=== PATIENT | male | born 1945 | race Caucasian/White ===

== ENCOUNTER → 2020-10-04 11:51 | Outpatient (BNVA) | payer MEDICARE, SELFPAY | PROVIDERS: Family Provider Family Medicine; PCP Family Medicine; Visit Provider Family Medicine | DX: I48.91 Unspecified atrial fibrillation (principal); I48.19 Other persistent atrial fibrillation; N18.31 Chronic kidney disease, stage 3a | CPT/HCPCS: 80048 ==

== ENCOUNTER → 2020-10-11 12:02 | Outpatient (BNVA) | payer MEDICARE, SELFPAY | PROVIDERS: Family Provider Family Medicine; PCP Family Medicine; Visit Provider Family Medicine | DX: N18.31 Chronic kidney disease, stage 3a (principal); I48.19 Other persistent atrial fibrillation | CPT/HCPCS: 80048 ==

== ENCOUNTER → 2020-10-26 08:58 | Outpatient (BNVA) | payer MEDICARE, SELFPAY | PROVIDERS: Family Provider Family Medicine; PCP Family Medicine; Visit Provider Family Medicine | DX: N18.31 Chronic kidney disease, stage 3a (principal) | CPT/HCPCS: 80048 ==

== ENCOUNTER 2020-10-28 08:32 | Inpatient (IN) | payer MEDICARE, SELFPAY ==
[2020-10-28 08:36] VITALS: BP 118/69; PULSE 71; RESP 18; TEMP 36.8; O2SAT 97; BMI 25.5
--- NOTE | 2020-10-28 08:48 | XR_ITS ---
WS: [id number] RIGHT FOOT: 3 VIEW(S) TECHNIQUE: AP, oblique and lateral. HISTORY: foot ulcer, DM COMPARISON: None available. Destructive bone lesion involving the head of the fifth proximal phalanx. This is probably a patholog ical fracture with osteomyelitis. There is diffuse soft tissue edema surrounding the fifth toe. Normal tarsal/metatarsal alignment. Mild osteopenia. Hammertoe deformities and moderate degenerative changes at the first IP joint. XR/XR foot RT min 3V* [id number] IMPRESSION: 1. Suspect pathological fracture with osteomyelitis involving the head of the fifth proximal phalanx and possible adjacent middle phalanx. 2. Diffuse soft tissue edema around the first toe. 3. Small calcaneal spur and hammertoe deformities.
--- NOTE | 2020-10-28 08:57 | ED_ITS ---
HPI - Skin/Abscess/Foreign Bdy General: Chief complaint: Skin/Abscess/Foreign Body Stated complaint: Poss Infected Toe on R. Side/Diabetic Time Seen by Provider: 10/28/20 08:41 History of Present Illness: HPI narrative: 74-year-old male presents emergency room with complaints of fifth toe pain. He has several open ulcers on his lower extremities a lot of chronic swelling but he has a discolored right fifth toe. He had been seeing a make up man he stopped going to him. He denies any fever sweats chills he has no other pain or symptoms. He is not currently on any antibiotics. Patient is on blood thinner for A. fib. complaint: abscess/boil and discoloration Onset (ago): week(s) Tetanus up to date: unsure Location: R foot (Fifth toe) Severity: severe Pain Consistency: constant Context: other (Known diabetic toe ulcer had previously been to wound care) Associated symptoms: Deny arthralgias, chills, cough, fever(s), itching, myalgias, nausea, rigidity, short of breath, vomiting or other Treatments prior to arrival: none Review of Systems Const: Denies: fever(s) or chills ENMT: Denies: throat pain, ear or mastoid pain, nasal discharge or nasal congestion Card: Denies: chest pain, edema, dyspnea on exertion or orthopnea Resp: Denies: dyspnea, productive cough or non-productive cough GI: Denies: abdominal pain, nausea, vomiting, hematemesis, coffee ground emesis, diarrhea, constipation, bloating, hematochezia or melena : Denies: flank pain, dysuria, urinary frequency or urinary urgency Skin/Breast: Denies: rash or pruritus PFSH ED PFSH: Medical History Anemia Atrial fibrillation Chronic kidney disease (CKD) stage G3a/A1, moderately decreased glomerular filtration rate (GFR) between 45-59 mL/min/1.73 square meter and albuminuria creatinine ratio less than 30 mg/g Diabetes GERD (gastroesophageal reflux disease) History of abdominal hernia Hypercholesteremia Hypertension Type 2 diabetes mellitus Surgical History Amputation of fifth toe of left foot History of amputation of toe History of appendectomy History of foot surgery Family History Other Stroke Social History Smoking and tobacco status: never smoked Alcohol intake: never Physical Exam Const: COMMON NORMALS: no acute distress GENERAL APPEARANCE: cooperative and comfortable ORIENTATION/CONSCIOUSNESS: Yes awake, Yes oriented to person, Yes oriented to place and Yes oriented to time HENMT: COMMON NORMALS: normocephalic, atraumatic and hearing grossly normal bilaterally HEAD & SCALP: normocephalic and atraumatic Lymph: LYMPHATIC: no lymphadenopathy noted and no lymphedema noted Resp: COMMON NORMALS: normal respiratory effort, No retractions, No use of accessory muscles and clear to auscultation bilaterally AUSCULTATION: clear to auscultation bilaterally Cardio: COMMON NORMALS: regular rate, regular rhythm and No murmurs present (Cardio) RATE: regular rate RHYTHM: regular rhythm GI: COMMON NORMALS: Soft to palpation and No hepatosplenomegaly present AUSCULTATION: Yes normoactive bowel sounds PALPATION: Yes Soft to palpation, No Tenderness to palpation present (GI), No Guarding due to palpation present (GI) and Yes No hepatosplenomegaly present Extremity: NARRATIVE EXTREMITY EXAM: Gangrenous toe with open wound laterally on the right fifth digit there is proximal erythema and redness. Neuro: SENSORIUM/ORIENTATION: Yes oriented to person, Yes oriented to place and Yes oriented to time Skin: COMMON NORMALS: no rashes or lesions noted GENERAL SKIN EXAM: no rashes or lesions noted Course Vital Signs: Vital signs: Vital Signs Temperature 97.7 F 10/31/20 12:00 Pulse Rate 81 10/31/20 12:00 Respiratory Rate 18 10/31/20 12:00 Blood Pressure 183/88 10/31/20 12:00 Pulse Oximetry 92 10/31/20 12:00 MDM - Skin/Abscess/Foreign Bdy MDM Narrative: Medical decision making narrative: Severe osteomyelitis with tissue destruction and bony destruction noted he will need to lose his toe concerned if he does not he will become septic does not appear to be septic at this point discussed Dr. Reynoso he will see the patient also discussed with hospitalist. Lab Data: Labs: Lab Results 10/28/20 10/28/20 10/28/20 Range/Units 09:09 09:09 09:09 WBC 11.4 H (4.0-10.0) 10^3/ uL RBC 3.73 L (4.1-5.3) 10^6/u L Hgb 10.1 L (11.7-16.6) g/dL Hct 32.3 L (42.0-52.0) % MCV 86.6 (80-94) fL MCH 27.1 L (28.0-34.0) pg MCHC 31.3 (30.0-36.0) g/dL RDW 15.9 H (12.1-15.1) % Plt Count 224 (130-400) 10^3/c mm MPV 8.5 (7.4-10.4) fL Neut % (Auto) 78.8 % Lymph % (Auto) 12.9 % [place] % (Auto) 7.4 % Eos % (Auto) 0.1 % Baso % (Auto) 0.4 % Neut # (Auto) 8.97 H (1.8-7.7) 10^3/u L Lymph # (Auto) 1.5 (0.8-4.8) 10^3/u L [place] # (Auto) 0.8 (0.2-0.9) 10^3/u L Eos # (Auto) 0.0 (0.0-0.8) 10^3/u L Baso # (Auto) 0.0 (0.0-0.1) 10^3/u L Nucleated RBC % (a uto) 0 % Nucleated RBCs # 0.0 /100WBC Sodium 135 L (136-145) mmol/L Potassium 4.3 (3.5-5.1) mmol/L Chloride 97 L (98-107) mmol/L Carbon Dioxide 26 (22-29) mmol/L Anion Gap 16.3 (5-19) BUN 62 H (8-23) mg/dL Creatinine 2.0 H (0.7-1.2) mg/dL GFR Calculation Not Reportable Glucose 207 H (65-115) mg/dL Estimat Average Gl ucose 174 Hemoglobin A1c 7.7 H (4.0-6.0) % Calculated Osmolal ity 304 H (285-295) mOsm/k g Calcium 8.9 (8.5-10.5) mg/dL Iron (59-158) ug/dL TIBC mcg/dl % Saturation (20-50) % Unsat Iron Binding (112-347) ug/dL Ferritin (30-400) ng/mL Total Bilirubin 0.5 (0.15-1.2) mg/dL AST 17 (0-40) U/L ALT 10 (0-41) U/L Alkaline Phosphata se 119 (40-130) IU/L Total Protein 7.9 (6.6-8.7) g/dL Albumin 3.4 L (3.5-5.2) g/dL Globulin 4.5 (1.3-4.6) g/dL TSH (0.27-4.20) uIU/ mL 10/28/20 10/28/20 Range/Units 09:09 09:09 WBC (4.0-10.0) 10^3/ uL RBC (4.1-5.3) 10^6/u L Hgb (11.7-16.6) g/dL Hct (42.0-52.0) % MCV (80-94) fL MCH (28.0-34.0) pg MCHC (30.0-36.0) g/dL RDW (12.1-15.1) % Plt Count (130-400) 10^3/c mm MPV (7.4-10.4) fL Neut % (Auto) % Lymph % (Auto) % [place] % (Auto) % Eos % (Auto) % Baso % (Auto) % Neut # (Auto) (1.8-7.7) 10^3/u L Lymph # (Auto) (0.8-4.8) 10^3/u L [place] # (Auto) (0.2-0.9) 10^3/u L Eos # (Auto) (0.0-0.8) 10^3/u L Baso # (Auto) (0.0-0.1) 10^3/u L Nucleated RBC % (a uto) % Nucleated RBCs # /100WBC Sodium (136-145) mmol/L Potassium (3.5-5.1) mmol/L Chloride (98-107) mmol/L Carbon Dioxide (22-29) mmol/L Anion Gap (5-19) BUN (8-23) mg/dL Creatinine (0.7-1.2) mg/dL GFR Calculation Glucose (65-115) mg/dL Estimat Average Gl ucose Hemoglobin A1c (4.0-6.0) % Calculated Osmolal ity (285-295) mOsm/k g Calcium (8.5-10.5) mg/dL Iron 20 L (59-158) ug/dL TIBC 226 mcg/dl % Saturation 8.8 L (20-50) % Unsat Iron Binding 206 (112-347) ug/dL Ferritin 164 (30-400) ng/mL Total Bilirubin (0.15-1.2) mg/dL AST (0-40) U/L ALT (0-41) U/L Alkaline Phosphata se (40-130) IU/L Total Protein (6.6-8.7) g/dL Albumin (3.5-5.2) g/dL Globulin (1.3-4.6) g/dL TSH 0.95 (0.27-4.20) uIU/ mL Discharge Plan Discharge Patient Disposition: Admitted As Inpatient Admit Provider: Franc Hannon Clinical Impression: Gangrene of toe of right foot, Chronic kidney disease (CKD) stage G3a/A1, moderately decreased glomerular filtration rate (GFR) between 45-59 mL/min/1.73 square meter and albuminuria creatinine ratio less than 30 mg/g, Type 2 diabetes mellitus, Hypertension Condition: Stable Coding Level of Care Code ED Clinical Documentation Consultant for Omi Hernández
--- NOTE | 2020-10-28 08:58 | CT_ITS ---
WS: [id number] CT RIGHT FOOT WITH CONTRAST. HISTORY: Gangrenous fifth toe Technique: All [facility] scans at [facility] use at least one of these dose optimization techniq ues: automated exposure control; mA and/or kV adjustment per patient size (includes targeted exams wh ere dose is matched to clinical indication); or iterative reconstruction. DLP: 164.44 mGy.cm COMPARISON: Radiograph 10/28/2020. Contrast: Visipaque 320, 95 cc. There is extensive destruction of the bone involving the head of the fifth proximal fifth phalanx. Th ere is also involvement of the middle phalanx. There is air within the PIP joint with bone destructio n. There is a soft tissue ulceration and possible debridement changes extending laterally from the fi fth IP joint. Hammertoe deformities involving all toes. Significant osteoarthritic changes at the first IP joint. N o additional areas of osteomyelitis or bone destruction identified. There are degenerative changes at the tarsometatarsal articulation. Mild flattening of the normal arch of the foot and a small calcane al spur. There is diffuse significant soft tissue edema surrounding the entire foot. CT/CT foot RT w con [id number] IMPRESSION: 1. Findings consistent with osteomyelitis with bone destruction involving the head of the proximal fifth phalanx and the IP joint and adjacent middle phalanx . 2. No focal enhancing abscess but there is an ulcerated tract extending latera lly from the fifth PIP joint. This may all be due to ulceration and infection. Recent debridement may have been present also. 3. Diffuse soft tissue edema.
[2020-10-28 09:18] LABS: Basophils % 0.4 %; Eosinophils % 0.1 %; Hematocrit 32.3 % (42.0-52.0); Hemoglobin 10.1 g/dL (11.7-16.6); Lymphocytes # 1.5 10^3/uL (0.8-4.8); Lymphocytes % 12.9 %; Mean Corpuscular HGB Conc 31.3 g/dL (30.0-36.0); Mean Corpuscular Hemoglobin 27.1 pg (28.0-34.0); Mean Corpuscular Volume 86.6 fL (80-94); Mean Platelet Volume 8.5 fL (7.4-10.4); Monocytes # 0.8 10^3/uL (0.2-0.9); Monocytes % 7.4 %; Neutrophils # 8.97 10^3/uL (1.8-7.7); Neutrophils % 78.8 %; Nucleated Red Blood Cells % 0 %; Platelet Count 224 10^3/cmm (130-400); Red Blood Count 3.73 10^6/uL (4.1-5.3); Red Cell Distribution Width 15.9 % (12.1-15.1); White Blood Count 11.4 10^3/uL (4.0-10.0)
[2020-10-28] MEDS: iodixanol 320 mg/mL 100mL Btl IV (09:34)
[2020-10-28 09:38] LABS: Alanine Aminotransferase 10 U/L (0-41); Albumin Level 3.4 g/dL (3.5-5.2); Alkaline Phosphatase 119 IU/L (40-130); Anion Gap 16.3 (5-19); Aspartate Amino Transferase 17 U/L (0-40); Blood Urea Nitrogen 62 mg/dL (8-23); Calcium 8.9 mg/dL (8.5-10.5); Carbon Dioxide 26 mmol/L (22-29); Chloride 97 mmol/L (98-107); Globulin 4.5 g/dL (1.3-4.6); Glucose 207 mg/dL (65-115); Osmolality Calculated 304 mOsm/kg (285-295); Potassium 4.3 mmol/L (3.5-5.1); Sodium 135 mmol/L (136-145); Total Bilirubin 0.5 mg/dL (0.15-1.2); Total Protein 7.9 g/dL (6.6-8.7)
[2020-10-28] MEDS: vancomycin 1,000 MG in sodium chloride 0.9% 250 ML 250 MG IV (10:57)
[2020-10-28 11:32] VITALS: BP 118/68; PULSE 79; RESP 18; O2SAT 97
[2020-10-28 12:40] LABS: Thyroid Stimulating Hormone 0.95 uIU/mL (0.27-4.20)
--- NOTE | 2020-10-28 12:40 | PM.HP ---
Providers/Chief Complaint Primary Care Provider: Jose Patiño MD Chief Complaint: Poss Infected Toe on R. Side/Diabetic History of Present Illness Lazara Cleary is a 74 year old male who presented to the emergency department with concerns of changes in his right fifth toe, right leg. He denies any significant pain, fever, chills. He reports podiatry had debrided the toe recently, and it is turned blue in the last several days. He reports his leg has turned red and is swelling more than usual. He has had no vomiting, diarrhea, exposure to Covid, previous history of Covid or vaccine for Covid. He is diabetic and previously required amputation of the left fifth toe diabetic foot ulcer. Review of Systems General: Reports: 10 or more systems reviewed and unremarkable except in HPI and below Const: Denies: fever(s) or chills Eyes: Denies: change in vision ENMT: Denies: throat pain Card: Denies: chest pain Resp: Denies: dyspnea GI: Denies: abdominal pain : Denies: flank pain Musc: Denies: neck pain Skin/Breast: Reports: sores; Denies: rash Neuro: Denies: headache(s) Psych: Denies: anxiety or depression Endo: Denies: polyuria [place]/Lymph: Denies: easy bruising All/Imm: Denies: urticaria Medications/Allergies Home Medications Medication Instructions Recorded Confirmed Last Taken Type atorvastatin 10 mg tablet 10 mg PO DAILY 08/18/20 10/28/20 10/27/20 History metformin 1,000 mg tablet 1,000 mg PO BID 08/18/20 10/28/20 10/28/20 History ferrous sulfate 325 mg (65 mg 325 mg PO DAILY 10/04/20 10/28/20 10/28/20 History iron) tablet,delayed release insulin detemir U-100 100 unit/mL 100 unit SUBCUT BID ml 10/04/20 10/28/20 10/28/20 History (3 mL) subcutaneous pen lisinopril 40 mg tablet 40 mg PO DAILY 10/04/20 10/28/20 10/28/20 History pantoprazole 40 mg tablet,delayed 40 mg PO DAILY 10/04/20 10/28/20 10/28/20 History release hydrochlorothiazide 25 mg tablet 25 mg PO DAILY #90 tab 10/06/20 10/28/20 10/28/20 Rx tramadol 50 mg tablet 50 mg PO DAILY PRN #30 tab 10/11/20 10/28/20 Unknown Rx amlodipine 5 mg tablet 5 mg PO DAILY 90 Days #90 tab 10/26/20 10/28/20 10/28/20 Rx apixaban 5 mg tablet 5 mg PO BID 90 Days #180 tab 10/26/20 10/28/20 10/28/20 Rx furosemide 40 mg tablet 40 mg PO DAILY 90 Days #90 tab 10/26/20 10/28/20 10/28/20 Rx metoprolol tartrate 50 mg PO DAILY 10/28/20 10/28/20 10/28/20 History Allergies Allergy/AdvReac Type Severity Reaction Status Date / Time No Known Allergies Allergy Verified 10/11/20 10:13 PFSH Acute PFSH: Medical History (Updated 10/28/20 @ 13:43 by Franc Hannon MD) Anemia Atrial fibrillation Chronic kidney disease (CKD) stage G3a/A1, moderately decreased glomerular filtration rate (GFR) between 45-59 mL/min/1.73 square meter and albuminuria creatinine ratio less than 30 mg/g Diabetes GERD (gastroesophageal reflux disease) History of abdominal hernia Hypercholesteremia Hypertension Type 2 diabetes mellitus Surgical History (Updated 10/28/20 @ 13:37 by Franc Hannon MD) Amputation of fifth toe of left foot History of amputation of toe History of appendectomy History of foot surgery Family History (Updated 10/28/20 @ 13:37 by Franc Hannon MD) Other Stroke Social History Smoking and tobacco status: never smoked Alcohol intake: never Supplemental PFSH Information: Mother with history of hemorrhagic stroke Vitals/I&O/Wt Last Vital Signs Temp 98.2 F 10/28/20 08:36 Pulse 79 10/28/20 11:32 Resp 18 10/28/20 11:32 BP 118/68 10/28/20 11:32 Pulse Ox 97 10/28/20 11:32 Weight last 48 hrs Weight 85.548 kg Physical Exam Narrative: EXAM NARRATIVE: General exam is an alert and conversive white male in no apparent distress HEENT: Atraumatic, normocephalic. Pupils equally round. Oropharynx clear. Neck is supple no lymphadenopathy or thyromegaly Cardiovascular regular rate and rhythm without murmur. No S3 or S4 Lungs are clear no wheezing or crackles Abdomen is soft with positive bowel sounds. No obvious organomegaly exam is deferred Extremities show 1+ edema on the left, 2+ on the right. Evidence of venous stasis changes are noted. Right lower extremity shows some more intense erythema overlying the dahl, and some skin breakdown. Right fifth toe appears gangrenous with a an ulcer laterally. Neurologic no obvious focal deficits Skin see findings above Data : 10/28/20 09:09 10/28/20 09:09 Micro: Microbiology 10/28/20 09:27 Blood Culture - Preliminary Blood SPECIMEN COLLECTED 10/28/20 09:09 Blood Culture - Preliminary Blood SPECIMEN COLLECTED Other data: LFTs within normal limits Albumin 3.4 X-ray of foot suspected osteomyelitis right fifth proximal phalanx. CT scan confirms this A&P Assessment and plan (1) Gangrene of toe of right foot: Associated with cellulitis of the right lower extremity Initiate vancomycin and Zosyn Check blood cultures Vascular surgery consult Check venous duplex, arterial duplex both lower extremities Status: Acute (2) Atrial fibrillation: Currently on Eliquis. Rate currently under control. Check EKG. I suspect he is currently in sinus rhythm. Hold Eliquis for surgery tomorrow Status: Acute Qualifiers: Atrial fibrillation type: persistent (not longstanding) Qualified Code(s): I48.19 - Other persistent atrial fibrillation (3) Anemia: Likely secondary to his renal disease Iron studies Stool Hemoccult Status: Acute (4) Type 2 diabetes mellitus: Sliding scale insulin Status: Acute (5) Chronic kidney disease (CKD) stage G3a/A1, moderately decreased glomerular filtration rate (GFR) between 45-59 mL/min/1.73 square meter and albuminuria creatinine ratio less than 30 mg/g: Follow renal function closely Status: Acute (6) GERD (gastroesophageal reflux disease): Continue home meds Status: Acute (7) Hypertension: Continue home medications Status: Acute Additional A&P Information Questionable history of CHF. He indicates no history of prior [place], and his fluid overload could also potentially been secondary to renal disease with proteinuria. I gather that he has a normal EF from my visitation with him. I will check a urinalysis to see if there is significant proteinuria. Multiple other medical problems as outlined in his past medical history Full code He is on Eliquis which will suffice for DVT prophylaxis, but will be held as he will be having surgery tomorrow. SCDs contraindicated secondary to the potential for severe vascular disease and gangrenous toe. Attestations Medical Necessity Statement*: Will need greater than 2 midnight stay for evaluation and treatment of cellulitis and gangrenous right fifth toe Time Spent in Patient Care: Greater than 35 minutes Coding Level of Care Code Acute Director Behavioral Health for g Fwd Diagnoses Gangrene of toe of right foot I96 Atrial fibrillation I48.19 Atrial fibrillation type: persistent (not longstanding) Anemia D64.9 Type 2 diabetes mellitus E11.9 Chronic kidney disease (CKD) stage G3a/A1, moderately decreased glomerular filtration rate (GFR) between 45-59 mL/min/1.73 square meter and albuminuria creatinine ratio less than 30 mg/g N18.31 GERD (gastroesophageal reflux disease) K21.9 Hypertension I10
[2020-10-28 12:45] LABS: Estmated Average Glucose 174; Hemoglobin A1C 7.7 % (4.0-6.0)
--- NOTE | 2020-10-28 13:13 | PM.CONSULT ---
Providers/Reason For Consult Consulting Physican/Specialty*: Dr. Reynoso/cardiothoracic surgery Reason for Consult*: Osteomyelitis right foot Requesting Physcian: Dr. Snow Attending Physician: Franc Hannon MD Primary Care Provider: Jose Patiño MD History of Present Illness History of Present Illness Lazara Cleary is a 74 year old diabetic male who I been consulted on after presenting to the emergency department with complaints of pain in his right foot, particularly laterally at the right fifth toe. He has noted discoloration changes and some drainage for the past 2 to 3 days worsening over the past 24 to 36 hours. He has a history of diabetes mellitus and prior left fifth toe amputation in 2012. He has chronic atrial fibrillation and is on Eliquis 5 mg twice daily. He has received some foot care through a seafood specialist whom he no longer sees. He has chronic lower extremity edema which has been present for quite some time. He has been followed by Dr. Patiño from our [facility] service, with his normal primary care provider being Sabrina Sfoia. Dr. Patiño has been assisting with the [facility] program. He has been recently hospitalized for renal insufficiency, CHF, and atrial fibrillation. He received substantial diuresis during this hospitalization. Fairly, echocardiogram revealed preserved function. I do note erythema over the pretibial region of his right foot with gangrenous changes to the right fifth toe. X-rays and CT scan are consistent with osteomyelitis involving the articular surface of the fifth metatarsal as well as the proximal phalanx. He has been initiated on vancomycin since arrival to the [facility]. The laboratory data revealed a mildly elevated white count at 11.4. He is also modestly anemic with a hemoglobin of 10.1. BUN is 62 with a creatinine of 2.0. Review of his laboratory data back to October 04 revealed a BUN of 69 and a creatinine of 2.1. He denies fever, chills, or night sweats. He does have diabetic neuropathy of the feet. Meds/Allergies Home Medications and Allergies Home Medications Medication Instructions Recorded Confirmed Last Taken Type atorvastatin 10 mg tablet 10 mg PO DAILY 08/18/20 10/28/20 10/27/20 History metformin 1,000 mg tablet 1,000 mg PO BID 08/18/20 10/28/20 10/28/20 History ferrous sulfate 325 mg (65 mg 325 mg PO DAILY 10/04/20 10/28/20 10/28/20 History iron) tablet,delayed release insulin detemir U-100 100 unit/mL 100 unit SUBCUT BID ml 10/04/20 10/28/20 10/28/20 History (3 mL) subcutaneous pen lisinopril 40 mg tablet 40 mg PO DAILY 10/04/20 10/28/20 10/28/20 History pantoprazole 40 mg tablet,delayed 40 mg PO DAILY 10/04/20 10/28/20 10/28/20 History release hydrochlorothiazide 25 mg tablet 25 mg PO DAILY #90 tab 10/06/20 10/28/20 10/28/20 Rx tramadol 50 mg tablet 50 mg PO DAILY PRN #30 tab 10/11/20 10/28/20 Unknown Rx amlodipine 5 mg tablet 5 mg PO DAILY 90 Days #90 tab 10/26/20 10/28/20 10/28/20 Rx apixaban 5 mg tablet 5 mg PO BID 90 Days #180 tab 10/26/20 10/28/20 10/28/20 Rx furosemide 40 mg tablet 40 mg PO DAILY 90 Days #90 tab 10/26/20 10/28/20 10/28/20 Rx metoprolol tartrate 50 mg PO DAILY 10/28/20 10/28/20 10/28/20 History Allergies Allergy/AdvReac Type Severity Reaction Status Date / Time No Known Allergies Allergy Verified 10/11/20 10:13 PFSH Acute PFSH: Medical History (Updated 10/28/20 @ 13:21 by Chris Reynoso MD) Amputation of fifth toe of left foot Social History Smoking and tobacco status: never smoked Alcohol intake: never Vitals/I&O/Wt Last Vital Signs Temp 98.2 F 10/28/20 08:36 Pulse 79 10/28/20 11:32 Resp 18 10/28/20 11:32 BP 118/68 10/28/20 11:32 Pulse Ox 97 10/28/20 11:32 Weight last 48 hrs Weight 188 lb 9.6 oz Physical Exam HENMT: COMMON NORMALS: normocephalic, atraumatic, hearing grossly normal bilaterally and external ears normal HEAD & SCALP: normocephalic and atraumatic EXTERNAL EAR: Yes external ears normal Neck/C-Spine: COMMON NORMALS: no lymphadenopathy and supple GENERAL: Yes normal visual inspection and Yes trachea midline CAROTIDS: Yes normal carotid upstroke and No bruit Resp: COMMON NORMALS: normal respiratory effort, No retractions, No use of accessory muscles, clear to auscultation bilaterally and percussion normal EFFORT & INSPECTION: Yes able to speak in complete sentences and Yes symmetric chest movement AUSCULTATION: clear to auscultation bilaterally PERCUSSION: percussion normal Cardio: COMMON NORMALS: regular rate and S1 normal heart sound present; negative for regular rhythm RATE: regular rate RHYTHM: abnormal rhythm and abnormal rhythm irregularly irregular HEART SOUNDS: S1 normal heart sound present BRUITS: no abdominal aortic bruits and no carotid bruits PERIPHERAL PULSES: radial pulses present positive bilateral 2+ OTHER: Palpable pedal pulses. Doppler biphasic dorsalis pedis pulses bilaterally. Lightly Doppler biphasic pulses at the trifurcation. Doppler biphasic popliteal pulses bilaterally. Stormy discoloration and gangrenous changes to the right fifth toe laterally consistent with wet gangrene. Osseous destruction noted on CT scan. Extremity: COMMON NORMALS: negative for normal to inspection and negative for no clubbing, cyanosis or edema GENERAL: Yes amputation (Left fifth toe), Yes edema (Bilateral lower extremities and pretibial region) and Yes mottling (Right fifth toe) Data Micro: Micro: Microbiology 10/28/20 09:27 Blood Culture - Pr eliminary Blood SPECIMEN [facility] 10/28/20 09:09 Blood Culture - Pr eliminary Blood SPECIMEN [facility] A&P Assessment and plan (1) Chronic kidney disease (CKD) stage G3a/A1, moderately decreased glomerular filtration rate (GFR) between 45-59 mL/min/1.73 square meter and albuminuria creatinine ratio less than 30 mg/g: Status: Acute (2) Atrial fibrillation: Status: Acute Qualifiers: Atrial fibrillation type: persistent (not longstanding) Qualified Code(s): I48.19 - Other persistent atrial fibrillation (3) Gangrene of toe of right foot: Gangrenous changes with drainage to the lateral aspect of the right fifth toe. Osteomyelitis by CT scan involving the fifth metatarsal distally. Erythema of the pretibial region. He has received his first dose of vancomycin. Recommendation: Recommend proceeding with maximal medical management through the afternoon and plans for right fifth toe amputation tomorrow morning which has been tentatively scheduled for 8 AM. Rationale for this was carefully discussed with Mr. Cleary and he is in agreement. Details the risk of surgery reviewed include the possibility requiring further surgeries including subsequent need for major amputation due to ongoing infection or inadequate blood supply. Need for long-term surveillance and subsequent follow-up in the wound care service was also discussed. Increased bleeding risk related to his current anticoagulation was also frankly discussed. He states understanding and wishes to proceed. Will eventually need further investigation as to his vascular status, though given his renal insufficiency this needs to be addressed carefully with appropriate hydration and consultation with nephrology. Given the stormy gangrenous changes to his right fifth toe I believe it is distal to proceed with dressing these gangrenous changes acutely. Status: Acute Consult Attestations Medical Necessity Statement: Gangrene right fifth toe Time Spent in Patient Care: Greater than 35 minutes Coding Level of Care Code Acute Forming Tube Selector for [facility] Fwd Diagnoses Chronic kidney disease (CKD) stage G3a/A1, moderately decreased glomerular filtration rate (GFR) between 45-59 mL/min/1.73 square meter and albuminuria creatinine ratio less than 30 mg/g N18.31 Atrial fibrillation I48.19 Atrial fibrillation type: persistent (not longstanding) Gangrene of toe of right foot I96
[2020-10-28 13:21] VITALS: BP 124/74; PULSE 78; RESP 18; O2SAT 98
--- NOTE | 2020-10-28 13:29 | XR_ITS ---
WS: [id number] Portable AP upright chest, 10/28/2020 Clinical Data: Gangrene right foot Comparison: Portable chest, 07/16/2012. Findings: No nodules, masses or effusions are seen. The heart is enlarged. The pulmonary vascularity is not increased. No pneumonia or pneumothorax is seen. There are calcified granulomas in both lungs XR/XR chest 1V portable [id number] Impression: Cardiomegaly.
--- NOTE | 2020-10-28 13:41 | ECG_ITS ---
[facility] ED Test Date: 2020-10-28 Pat Name: Lazara Cleary Department: Room: 269 Gender: Male Business Development: : 1945 Requested By: Franc Bhatia Order Number: [id number] Zay MD: Marely Davalos M.D. Measurements Intervals [place] Rate: 77 P: OK: QRS: 55 QRSD: 92 T: 70 QT: 357 QTc: 405 Interpretive Statements Possibly ATRIAL Fibrillation NONSPECIFIC T-WAVE ABNORMALITY ABNORMAL RHYTHM ECG No previous ECG available for comparison Electronically Signed On 10-30-2020 12:24:28 CDT by Marely Davalos M.D. [id number]
[2020-10-28 14:18] LABS: Ferritin 164 ng/mL (30-400); Iron 20 ug/dL (59-158); Percent Saturation 8.8 % (20-50); Total Iron Binding Capacity 226 mcg/dl; Unsaturated Iron Binding 206 ug/dL (112-347)
--- NOTE | 2020-10-28 14:35 | USR_ITS ---
PROCEDURE INFORMATION: Exam: US Duplex Lower Extremity Veins, Bilateral Exam date and time: 10/28/2020 4:05 PM Age: 74 years old Clinical indication: Pain; Leg, lower; Bilateral; Additional info: Edema TECHNIQUE: Imaging protocol: Real-time duplex ultrasound of the extremities with 2-D moore scale, color Doppler flow and spectral waveform analysis with image documentation. Complete exam focused on the bilateral lower extremity veins. COMPARISON: CT foot RT w con [id number] 10/28/2020 9:47 AM FINDINGS: Right deep veins: Unremarkable. The common femoral, femoral, proximal profunda femoral and popliteal veins are patent without thrombus. Normal Doppler waveforms. Normal compressibility and/or augmentation response. Right superficial veins: Saphenofemoral junction is patent without thrombus. Left deep veins: Unremarkable. The common femoral, femoral, proximal profunda femoral and popliteal veins are patent without thrombus. Normal Doppler waveforms. Normal compressibility and/or augmentation response. Left superficial veins: Saphenofemoral junction is patent without thrombus. Soft tissues: Scattered subcutaneous soft tissue edema changes. US/CV venous duplex [facility] [id number] IMPRESSION: No evidence of deep vein thrombosis.
--- NOTE | 2020-10-28 14:35 | USR_ITS ---
PROCEDURE INFORMATION: Exam: US Duplex Lower Extremity Arteries Exam date and time: 10/28/2020 4:05 PM Age: 74 years old Clinical indication: Pain; Leg, lower; Bilateral; Additional info: Diabetic foot ulcer TECHNIQUE: Imaging protocol: Real-time ultrasound scan of the arteries of the bilateral lower extremities with 2-D moore scale, color Doppler flow and spectral waveform analysis. Images documented and saved. COMPARISON: [place] [id number] 10/28/2020 4:24 PM FINDINGS: Right external iliac artery: Unremarkable triphasic waveforms are identified throughout the right iliac arteries. Peak systolic velocities are normal. Right common femoral artery: Right common femoral artery has triphasic waveform. Normal peak systolic velocity. Right superficial femoral artery: Triphasic waveforms through the right superficial femoral artery with unremarkable peak systolic velocity. Right popliteal artery: Mild dampening with biphasic waveform through the right popliteal artery with unremarkable peak systolic velocity. Scattered echogenic atherosclerotic wall plaque. Right calf/foot arteries: Waveform dampening with biphasic pattern in the right posterior tibial artery and the right dorsalis pedis artery with unremarkable peak systolic velocity. Left external iliac artery: Triphasic waveforms through the left iliac arteries with unremarkable peak systolic velocity. Left common femoral artery: Triphasic waveform pattern in the left common femoral artery with unremarkable velocity. Left superficial femoral artery: Triphasic waveform pattern throughout the left superficial femoral artery with unremarkable loss at E. Left popliteal artery: Mild dampening with biphasic pattern in the left popliteal artery with unremarkable velocity. Left calf/foot arteries: Severe waveform dampening with monophasic pattern in the left posterior tibial artery and the left dorsalis ped[place]. US/[place] [id number] IMPRESSION: 1. Significant spectral Doppler waveform dampening is identified in the left lower extremity infrapopliteal arterial runoff consistent with significant peripheral arterial disease changes. 2. Mild severity spectral Doppler waveform dampening is identified in the right lower extremity infrapopliteal arterial runoff consistent with mild severity peripheral arterial disease changes. 3. No significant waveform abnormalities above the knees.
[2020-10-28 15:37] VITALS: BP 136/72; PULSE 88; RESP 18; TEMP 37; O2SAT 95
[2020-10-28] MEDS: piperacillin-tazobactam 3.375 GM in sodium chloride 0.9% (plus) 50 ML IV ×2 (16:23→23:46)
[2020-10-28 16:54] LABS: Glucose Point of Care 148 mg/dL (70-110)
[2020-10-28] MEDS: heparin 5,000 unit/mL INJ 1 mL 5000 UNIT SUBCUT (17:15)
[2020-10-28 17:23] LABS: Bilirubin Urine Neg (Negative); Blood Urine 2+ (Negative); Glucose Urine UA Norm (Normal); Ketones Urine Negative (Negative); Leukocyte Esterase Urine Negative (Negative); Nitrate Urine Negative (Negative); Protein Urine 1+ (Negative); Specific Gravity, Urine 1.005 (1.005-1.030); Urine Appearance Clear (CLEAR); Urine Color Yellow (Yellow); Urobilinogen Urine Norm (Negative); pH Urine 5 (5-7)
[2020-10-28 17:24] LABS: Bacteria Urine TRACE /hpf; Hyaline Casts Urine 0-4 /lpf; Squamous Epithelial Cell Urine 0-4 /hpf (0-5); WBC Urine 0-4 /hpf (0-5)
[2020-10-28 17:25] LABS: Add Urine Culture? No
[2020-10-28 20:00] VITALS: BP 140/69; PULSE 79; RESP 20; TEMP 36.5; O2SAT 95
[2020-10-28] MEDS: HYDROcodone-acetaminophen 5-325 mg Tablet 1 TAB PO (20:21)
[2020-10-28] MEDS: ondansetron 2 mg/ML SDV 2 mL 4 MG IVP (20:24)
[2020-10-28 20:25] LABS: Glucose Point of Care 137 mg/dL (70-110)
[2020-10-29] VITALS (14 sets, daily range): BP systolic 100–169; BP diastolic 49–81; PULSE 62–85; RESP 12–19; TEMP 36.2–37.1; O2SAT 92–99
[2020-10-29] MEDS: heparin 5,000 unit/mL INJ 1 mL 5000 UNIT SUBCUT ×2 (02:25→15:46)
[2020-10-29 05:53] LABS: Basophils % 0.6 %; Eosinophils # 0.2 10^3/uL (0.0-0.8); Eosinophils % 2.2 %; Hematocrit 29.7 % (42.0-52.0); Hemoglobin 9.6 g/dL (11.7-16.6); Lymphocytes # 1.5 10^3/uL (0.8-4.8); Lymphocytes % 21.2 %; Mean Corpuscular HGB Conc 32.3 g/dL (30.0-36.0); Mean Corpuscular Hemoglobin 27.3 pg (28.0-34.0); Mean Corpuscular Volume 84.4 fL (80-94); Mean Platelet Volume 9.2 fL (7.4-10.4); Monocytes # 0.6 10^3/uL (0.2-0.9); Monocytes % 8.5 %; Neutrophils # 4.68 10^3/uL (1.8-7.7); Neutrophils % 67.2 %; Nucleated Red Blood Cells % 0 %; Platelet Count 226 10^3/cmm (130-400); Red Blood Count 3.52 10^6/uL (4.1-5.3); Red Cell Distribution Width 15.6 % (12.1-15.1)
[2020-10-29] MEDS: vancomycin 1,250 MG/250 ML PIGGYBACK 250 MG IV (06:03)
[2020-10-29 06:20] LABS: Alanine Aminotransferase 7 U/L (0-41); Albumin Level 2.7 g/dL (3.5-5.2); Alkaline Phosphatase 121 IU/L (40-130); Anion Gap 14.1 (5-19); Aspartate Amino Transferase 15 U/L (0-40); Blood Urea Nitrogen 56 mg/dL (8-23); Calcium 8.5 mg/dL (8.5-10.5); Carbon Dioxide 27 mmol/L (22-29); Chloride 99 mmol/L (98-107); Globulin 4.2 g/dL (1.3-4.6); Glucose 140 mg/dL (65-115); Osmolality Calculated 300 mOsm/kg (285-295); Potassium 4.1 mmol/L (3.5-5.1); Sodium 136 mmol/L (136-145); Total Bilirubin 0.5 mg/dL (0.15-1.2); Total Protein 6.9 g/dL (6.6-8.7)
[2020-10-29 06:54] LABS: Glucose Point of Care 144 mg/dL (70-110)
--- NOTE | 2020-10-29 07:06 | PM.PN ---
Subjective Subjective: Interval history: Hospital day #1. Mr. Cleary rested well last night. White count has decreased to 7000 since initiation of antibiotics. Vitals/I&O/Wt Last Vital Signs Temp 98.6 F 10/29/20 04:15 Pulse 72 10/29/20 04:15 Resp 18 10/29/20 04:15 BP 111/49 10/29/20 04:15 Pulse Ox 92 10/29/20 04:15 10/28/20 10/29/20 10/29/20 22:59 06:59 14:59 Intake Total 730 / 980 50 / 1030 Output Total 275 / 275 400 / 675 Balance 455 / 705 -350 / 355 Weight last 48 hrs Weight 188 lb 9.6 oz Physical Exam Resp: COMMON NORMALS: normal respiratory effort and clear to auscultation bilaterally AUSCULTATION: clear to auscultation bilaterally Cardio: COMMON NORMALS: regular rate RATE: regular rate RHYTHM: abnormal rhythm irregularly irregular Extremity: OTHER: Gangrenous right fifth toe was radiographic evidence for osteomyelitis by CT scan Data : 10/29/20 04:40 10/29/20 04:40 Micro: Microbiology 10/28/20 09:27 Blood Culture - Preliminary Blood SPECIMEN COLLECTED 10/28/20 09:09 Blood Culture - Preliminary Blood SPECIMEN COLLECTED A&P Assessment and plan (1) Gangrene of toe of right foot: We will plan to proceed with amputation of the right fifth toe as well as debridement of the distal aspect of the right fifth metatarsal with radiographic evidence for osteomyelitis by CT scan. Rationale again discussed with Mr. Cleary who is in agreement. He has been n.p.o. since midnight. Status: Acute Attestations Medical Necessity Statement*: Gangrene right fifth toe with osteomyelitis Time Spent in Patient Care: less than 15 minutes Coding Level of Care Code Acute Seismic Interpreter for [facility] Diagnoses Gangrene of toe of right foot I96
--- NOTE | 2020-10-29 07:49 | PC.NURSE ---
Surgery Pt taken down to surgery.
[2020-10-29] MEDS: sodium chloride 0.9% 1,000 ML 30 ML IV (07:50)
[2020-10-29] MEDS: piperacillin-tazobactam 3.375 GM in sodium chloride 0.9% (plus) 50 ML IV ×3 (07:57→23:40)
[2020-10-29] MEDS: lidocaine 1% INJ 20 mL INJECTION (08:28)
[2020-10-29] MEDS: ceFAZolin 1,000 mg SDV 1000 MG IRRIGATION (08:29)
[2020-10-29] MEDS: neomycin-poly-bacitracin oint 28 gm 1 APPLIC TOPICAL (08:48)
--- NOTE | 2020-10-29 09:14 | PM.OP ---
Operative Report Date of procedure: October 29, 2020 Pre-op Diagnosis: Gangrene right fifth toe wound with osteomyelitis Post-op diagnosis: same Procedure Done: Right fifth toe amputation Specimens removed/disposition: 1. Right fifth toe 2. Cultures Surgeon: Chris Reynoso Anesthesia: MAC and Local Complications: None Condition: stable Disposition: PACU Brief History: 74-year-old gentleman with diabetes mellitus presents with gangrenous changes to the right fifth toe over 3-day period. His CT scan of the foot revealed evidence for osteomyelitis involving the toe and distal aspect of the fifth metatarsal. Initiate oral antibiotic therapy with decrease in his white count. I recommended amputation. He will simply require further vascular evaluations though given the stormy gangrenous changes and presentation of leukocytosis, I feel it important to proceed with amputation. Details and risk of procedure were carefully and frankly discussed. Proper consents have been reviewed and signed. Procedure: Mr. Cleary was taken to the operating room theater after appropriate review of the procedure had been completed, he was appropriately marked, and consents obtained. He was carefully positioned on the OR table. He underwent IV conscious sedation anesthesia monitoring. His entire right foot and lower leg was sterilely prepped and draped. 1% lidocaine was infiltrated as digital block to the right fifth toe. #15 scalpel a was utilized then to incise at the base of the right fifth toe circumferentially and down to the metatarsal phalangeal joint with transection of associated ligaments and tendons. Specimen was removed and cultures were obtained/aerobic and anaerobic. Bone rongeur was then utilized to remove the articular surface of the fifth metatarsal as well as the distal one third until we reached what I felt was good quality bone. Once completed, previously transected tendons were placed on tension and then further transected. Wound was irrigated with large amounts of antibiotic solution. All remaining tissue appeared to be viable. I then elected to close this wound with interrupted 3-0 nylon suture. Triple antibiotic ointment and sterile dressings were applied. Mr. Suarez procedure well was awakened from IV consultation and taken to the postoperative care unit in stable condition. Antibiotic therapy will be continued as directed by Dr. Hannon with subsequent transitioning to oral antibiotics. Mr. Cleary will need follow-up at [facility] wound care services. Given his diabetes, degree of infection, and vascular disease, there is substantial propensity that his wound may not heal appropriately with primary closure and subsequently need to be reopened and treated as an open wound with planned secondary healing. This is all been previously discussed with Mr. Cleary during my initial consultation.
[2020-10-29] MEDS: FUROsemide 40 mg Tablet PO (10:04)
[2020-10-29] MEDS: amlodipine 5 mg Tablet PO ×2 (10:04→13:57)
[2020-10-29] MEDS: atorvastatin 40 mg Tablet 20 MG PO (10:05)
[2020-10-29] MEDS: pantoprazole DR 40 mg Tablet PO (10:07)
[2020-10-29] MEDS: hydroCHLOROthiazide 25 mg Tablet PO (10:08)
[2020-10-29 10:24] LABS: Glucose Point of Care 132 mg/dL (70-110)
--- NOTE | 2020-10-29 10:26 | ANES.PREANE2 ---
Pre-Anesthetic Assessment Pre-Anesthetic Assessment: Height/Weight: Height 1.83 m Weight 85.548 kg Temp Pulse Resp BP Pulse Ox 97.6 F 71 17 132/69 95 10/29/20 09:05 10/29/20 09:05 10/29/20 09:05 10/29/20 09:05 10/29/20 09:05 Preop Diagnosis: Gangrene right fifth toe wound with osteomyelitis Proposed Procedure: Operation Date: 10/29/20 08:20 Proposed Procedures p Amputation Toe/s 5th toe(Right) - Chris Reynoso MD Was Beta Dave taken within 24 hours: Yes Was Clonidine taken within 24 hours: N/A Last intake: Intake Last Liquid Date 10/28/20 Last Liquid Time 23:45 Last Solid Date 10/28/20 Last Solid Time 18:00 Social: Social History: No alcohol and No tobacco Exam: Pre-Anes Outpt Exam: alert, oriented x 3 and clear to auscultation bilaterally Airway: Submandibular: WNL Cervical ROM: WNL MP: 2 Dentition: False CV/HEM: CV/HEM: Afib, Anemia and HTN : : Chronic renal Insufficiency GI: GI: GERD Metabolic: Metabolic: DM Anesthetic Plan: ASA status: 3 Anesthesia: MAC Risk of > 500 ml blood loss (7ml/kg in children): No Meds/Allergies Current Medications: Current Medications Generic Name Dose Route Start Last Admin Trade Name Freq PRN Reason Stop Dose Admin Hydrocodone Bitart /Acetaminophen 1 tab 10/28/20 14:35 10/28/20 20:21 Hydrocodone-Acet aminophen 5-325 Mg Tablet PO 1 tab Q4H PRN Administration MODERATE TO SEVER E PAIN Amlodipine Besylat e 5 mg 10/29/20 09:00 10/29/20 10:04 Amlodipine 5 Mg Tablet PO 5 mg DAILY ANDREAS Administration Atorvastatin Calci um 20 mg 10/29/20 09:00 10/29/20 10:05 Atorvastatin 40 Mg Tablet PO 20 mg DAILY ANDREAS Administration Furosemide 40 mg 10/29/20 09:00 10/29/20 10:04 Furosemide 40 Mg Tablet PO 40 mg DAILY ANDREAS Administration Heparin Sodium (Be ef Lung) 5,000 unit 10/28/20 15:00 10/29/20 02:25 Heparin 5,000 Un it/Ml Inj 1 Ml SUBCUT 5,000 unit Q12H ANDREAS Administration Hydrochlorothiazid e 25 mg 10/29/20 09:00 10/29/20 10:08 Hydrochlorothiaz anthony 25 Mg Tablet PO 25 mg DAILY ANDREAS Administration Piperacillin Sod/T azobactam 50 mls @ 12.5 mls /hr 10/28/20 15:00 10/29/20 08:27 Sod 3.375 gm/ So dium Chloride IV Infused Q8H ANDREAS Infusion Protocol Vancomycin/PEG/NAD A/Lysine/Water 1,250 mg in 250 m ls @ 250 mls/hr 10/29/20 06:00 10/29/20 07:03 Vancocin IV Infused Q24H ANDREAS Infusion Insulin Aspart 0 unit 10/28/20 14:35 10/29/20 09:31 Insulin Aspart 1 00 Unit/1 Ml SUBCUT Not Given WM&BEDTIME ANDREAS Protocol Neomycin/Polymyxin /Bacitracin 1 applic 10/29/20 09:00 10/29/20 08:48 Zopqkfhy-Ngvl-Ow citracin Oint 28 G m TOPICAL 10 gm BID ANDREAS Administration Ondansetron HCl 4 mg 10/28/20 14:35 10/28/20 20:24 Ondansetron 2 Mg /Ml Sdv 2 Ml IVP 4 mg Q6H PRN Administration vomiting, or N/V if npo Pantoprazole Sodiu m 40 mg 10/29/20 09:00 10/29/20 10:[address] 40 Mg Tablet PO 40 mg DAILY ANDREAS Administration PFSH Anesthesia PFSH: Medical History (Updated 10/28/20 @ 13:43 by Franc Hannon MD) Anemia Atrial fibrillation Chronic kidney disease (CKD) stage G3a/A1, moderately decreased glomerular filtration rate (GFR) between 45-59 mL/min/1.73 square meter and albuminuria creatinine ratio less than 30 mg/g Diabetes GERD (gastroesophageal reflux disease) History of abdominal hernia Hypercholesteremia Hypertension Type 2 diabetes mellitus Surgical History (Updated 10/28/20 @ 13:37 by Franc Hannon MD) Amputation of fifth toe of left foot History of amputation of toe History of appendectomy History of foot surgery Family History (Updated 10/28/20 @ 13:37 by Franc Hannon MD) Other Stroke Social History Smoking and tobacco status: never smoked Alcohol intake: never Supplemental [facility] Information: Mother with history of hemorrhagic stroke Data Anesthesia CBC & Chem 7: 10/29/20 04:40 10/29/20 04:40 Other Labs: Laboratory Results - last 48 hr 10/28/20 10/28/20 10/28/20 09:09 09:09 09:09 WBC 11.4 H RBC 3.73 L Hgb 10.1 L Hct 32.3 L MCV 86.6 MCH 27.1 L MCHC 31.3 RDW 15.9 H Plt Count 224 MPV 8.5 Neut % (Auto) 78.8 Lymph % (Auto) 12.9 [place] % (Auto) 7.4 Eos % (Auto) 0.1 Baso % (Auto) 0.4 Neut # (Auto) 8.97 H Lymph # (Auto) 1.5 [place] # (Auto) 0.8 Eos # (Auto) 0.0 Baso # (Auto) 0.0 Nucleated RBC % (auto) 0 Nucleated RBCs # 0.0 Sodium 135 L Potassium 4.3 Chloride 97 L Carbon Dioxide 26 Anion Gap 16.3 BUN 62 H Creatinine 2.0 H GFR Calculation Not Reportable Glucose 207 H POC Glucose Estimat Average Glucose 174 Hemoglobin A1c 7.7 H Calculated Osmolality 304 H Calcium 8.9 Iron TIBC % Saturation Unsat Iron Binding Ferritin Total Bilirubin 0.5 AST 17 ALT 10 Alkaline Phosphatase 119 Total Protein 7.9 Albumin 3.4 L Globulin 4.5 TSH Urine Color Urine Appearance Urine pH Ur Specific [place] Urine Protein Urine Glucose (UA) Urine Ketones Urine Blood Urine Nitrate Urine Bilirubin Urine Urobilinogen Ur Leukocyte Esterase Urine RBC Urine WBC Ur Squamous Epith Cells Amorphous Sediment Urine Bacteria Hyaline Casts 10/28/20 10/28/20 10/28/20 09:09 09:09 16:39 WBC RBC Hgb Hct MCV MCH MCHC RDW Plt Count MPV Neut % (Auto) Lymph % (Auto) [place] % (Auto) Eos % (Auto) Baso % (Auto) Neut # (Auto) Lymph # (Auto) [place] # (Auto) Eos # (Auto) Baso # (Auto) Nucleated RBC % (auto) Nucleated RBCs # Sodium Potassium Chloride Carbon Dioxide Anion Gap BUN Creatinine GFR Calculation Glucose POC Glucose Estimat Average Glucose Hemoglobin A1c Calculated Osmolality Calcium Iron 20 L TIBC 226 % Saturation 8.8 L Unsat Iron Binding 206 Ferritin 164 Total Bilirubin AST ALT Alkaline Phosphatase Total Protein Albumin Globulin TSH 0.95 Urine Color Yellow Urine Appearance Clear Urine pH 5 Ur Specific [place] 1.005 Urine Protein 1+ H Urine Glucose (UA) Norm Urine Ketones Negative Urine Blood 2+ H Urine Nitrate Negative Urine Bilirubin Neg Urine Urobilinogen Norm Ur Leukocyte Esterase Negative Urine RBC 5-10 H Urine WBC 0-4 H Ur Squamous Epith Cells 0-4 H Amorphous Sediment Not Reportable Urine Bacteria Trace Hyaline Casts 0-4 H 10/28/20 10/28/20 10/29/20 16:50 20:21 04:40 WBC 7.0 RBC 3.52 L Hgb 9.6 L Hct 29.7 L MCV 84.4 MCH 27.3 L MCHC 32.3 RDW 15.6 H Plt Count 226 MPV 9.2 Neut % (Auto) 67.2 Lymph % (Auto) 21.2 [place] % (Auto) 8.5 Eos % (Auto) 2.2 Baso % (Auto) 0.6 Neut # (Auto) 4.68 Lymph # (Auto) 1.5 [place] # (Auto) 0.6 Eos # (Auto) 0.2 Baso # (Auto) 0.0 Nucleated RBC % (auto) 0 Nucleated RBCs # 0.0 Sodium Potassium Chloride Carbon Dioxide Anion Gap BUN Creatinine GFR Calculation Glucose POC Glucose 148 H 137 H Estimat Average Glucose Hemoglobin A1c Calculated Osmolality Calcium Iron TIBC % Saturation Unsat Iron Binding Ferritin Total Bilirubin AST ALT Alkaline Phosphatase Total Protein Albumin Globulin TSH Urine Color Urine Appearance Urine pH Ur Specific [place] Urine Protein Urine Glucose (UA) Urine Ketones Urine Blood Urine Nitrate Urine Bilirubin Urine Urobilinogen Ur Leukocyte Esterase Urine RBC Urine WBC Ur Squamous Epith Cells Amorphous Sediment Urine Bacteria Hyaline Casts 10/29/20 10/29/20 10/29/20 04:40 06:45 10:02 WBC RBC Hgb Hct MCV MCH MCHC RDW Plt Count MPV Neut % (Auto) Lymph % (Auto) [place] % (Auto) Eos % (Auto) Baso % (Auto) Neut # (Auto) Lymph # (Auto) [place] # (Auto) Eos # (Auto) Baso # (Auto) Nucleated RBC % (auto) Nucleated RBCs # Sodium 136 Potassium 4.1 Chloride 99 Carbon Dioxide 27 Anion Gap 14.1 BUN 56 H Creatinine 1.8 H GFR Calculation Not Reportable Glucose 140 H POC Glucose 144 H 132 H Estimat Average Glucose Hemoglobin A1c Calculated Osmolality 300 H Calcium 8.5 Iron TIBC % Saturation Unsat Iron Binding Ferritin Total Bilirubin 0.5 AST 15 ALT 7 Alkaline Phosphatase 121 Total Protein 6.9 Albumin 2.7 L Globulin 4.2 TSH Urine Color Urine Appearance Urine pH Ur Specific [place] Urine Protein Urine Glucose (UA) Urine Ketones Urine Blood Urine Nitrate Urine Bilirubin Urine Urobilinogen Ur Leukocyte Esterase Urine RBC Urine WBC Ur Squamous Epith Cells Amorphous Sediment Urine Bacteria Hyaline Casts Micro: Microbiology 10/28/20 09:27 Blood Culture - Preliminary Blood NEGATIVE TO DATE 10/28/20 09:09 Blood Culture - Preliminary Blood NEGATIVE TO DATE Cardiac Studies: No Data to Display
--- NOTE | 2020-10-29 10:27 | ANE.PACU2 ---
Inpatient post-anesthesia follow up: Airway intact: Yes Vital signs: Temperature 97.6 F Pulse Rate [Monito r] 71 Pulse Rate 71 Respiratory Rate 17 Blood Pressure [Le ft Arm] 118/69 Blood Pressure 132/69 Pulse Oximetry 95 Oxygen Delivery Me thod Room Air Oxygen Flow Rate 8 Fraction of Inspir ed Oxygen Hydration adequate: Yes Nausea and vomiting: No Pain level: 1 Mental status: Baseline
--- NOTE | 2020-10-29 10:49 | PC.CHAP ---
Pastoral Care Encounter/Spiritual Assessment Type of Contact [] Declined prenatal teacher visit [] Patient/Family/Request visit [] Outpatient visit [] Follow-up visit [] Physician referral [] Code/Alert [XX] Routine visit [] Staff referral [] Actively dying [] Patient sleeping [] Family support [] [] Out of room [] Palliative care [] [XX] Receiving care in room [] Pre-surgical visit [] Trauma [] Long length of stay [] ICU visit [] Other: Relational/Emotional Strength [] Patient feels connected with others/family/visitors/staff [] Distress [] Loneliness/isolation [] Abandonment Spirituality of Patient [] Person of Adriana [] Attends Anglican of their Adriana [] Believes in Prayer [] Reads Bible or Spiritism materials [] There are Spiritual issues to be addressed Certified Court Interpreter Interventions [] Prayer [] Active listening [] Non-anxious presence [] Spiritual/emotional support [] Crisis/trauma care [] Spiritual counseling [] Bereavement support [] Provided bereavement packet [] Provided Bible/devotional materials [] Provided toy/stuffed animal, coloring book to patient or family member [] Provided Communion [] Anointing/[place] [] Salvation [] Completed spiritual assessment [] Other: Impact on Illness or Injury [] Angry [] Fearful [] Anxious [] Often cries [] Exhaustion [] Unable to work [] Unable to attend mandaen [] Unable to walk/stand [] Unable to read [] Unable to drive [] Unable to eat/drink [] Unable to sleep [] Unable to be with family [] Patient intubated [] Other: Summary: Certified Court Interpreter attempted visits x 2. Staff in room both attempts. Time spent with patient
[2020-10-29 11:18] LABS: Glucose Point of Care 153 mg/dL (70-110)
--- NOTE | 2020-10-29 12:46 | USCV_ITS ---
Lazara Cleary Age: 74 Gender: M : 1945 Exam Date: 10/29/2020 15:08 Ordering Phys: Bennie Pal MD Technologist: Ruth Macias [place] [facility] [place]: History of pulmonary hypertension and diastolic dysfunction BP: 152 / 72 HR: 138 Rhythm: Atrial flutter Technical Quality: Adequate MEASUREMENTS (Male / Female) Normal Values 2D ECHO LV Diastolic Diameter PLAX 3.6 cm 4.2 - 5.9 / 3.9 - 5.3 cm LV Systolic Diameter PLAX 1.5 cm LV Chamber Size 3.9 cm IVS Diastolic Thickness 1.8 cm 0.6 - 1.0 / 0.6 - 0.9 cm IVS Systolic Thickness 2.0 cm LVPW Diastolic Thickness 1.4 cm 0.6 - 1.0 / 0.6 - 0.9 cm LVPW Systolic Thickness 1.8 cm RV Chamber Size 2.7 cm LVOT Diameter 1.9 cm LV Ejection Fraction 2D Teich 88.0 % LA Diameter 4.0 cm LA Width 3.7 cm LA Height 6.3 cm RA Width 3.9 cm RA Height 6.0 cm Aorta at Sinotubular Diameter 3.0 cm M-MODE LV Diastolic Diameter MM 4.5 cm 4.2 - 5.9 / 3.9 - 5.3 cm LV Systolic Diameter MM 2.1 cm LV Ejection Fraction MM Teich 83.9 % IVS Diastolic Thickness MM 1.5 cm 0.6 - 1.0 / 0.6 - 0.9 cm IVS Systolic Thickness MM 2.4 cm LVPW Diastolic Thickness MM 1.5 cm 0.6 - 1.0 / 0.6 - 0.9 cm LVPW Systolic Thickness MM 1.9 cm RV Diastolic Diameter MM 1.5 cm Aortic Annulus Diameter 4.2 cm LA Ao Ratio MM 1.0 MV E Point Septal Separation 0.5 cm DOPPLER AV Peak Velocity 110.0 cm/s LVOT Peak Velocity 87.0 cm/s AV Area Cont Eq vti 2.0 cm squared AV Area Cont Eq pk 2.2 cm squared MV Area PHT 3.9 cm squared Mitral E to A Ratio 3.6 MV E' Velocity 59.0 cm/s Mitral E to MV E' Ratio 11.1 Mitral E to LV E' Lateral Ratio 8.2 Mitral E to LV E' Septal Ratio 17.2 TR Peak Velocity 259.3 cm/s TR Peak Gradient 26.9 mmHg TV Peak E Velocity 52.0 cm/s Right Atrial Pressure 3.0 mmHg Pulmonary Artery Systolic Pressu 29.9 mmHg PV Peak Velocity 67.0 cm/s RV Acceleration Time 0.1 s RV Ejection Time 0.3 s RV AcT/ET 0.4 FINDINGS Left Ventricle Normal left ventricular size, systolic function and wall thickness, with no regional wall motion abnormalities. Left ventricular ejection fraction is estimated at 65-70 %. Rhythm precludes evaluation of diastolic function. Right Ventricle Normal right ventricular size and systolic function. Right ventricular systolic pressure 29.9 mmHg. Right Atrium Normal right atrial size. Right atrial pressure estimated at 3 mm Hg. Left Atrium Normal left atrial size. Mitral Valve Structurally normal mitral valve. No mitral valve stenosis. Trace mitral valve regurgitation. Aortic Valve Structurally normal trileaflet aortic valve. No aortic valve stenosis. No aortic valve regurgitation. Tricuspid Valve Structurally normal tricuspid valve. No tricuspid valve stenosis. Trace tricuspid valve regurgitation. Pulmonic Valve Structurally normal pulmonic valve. No pulmonary valve stenosis. Trace to mild pulmonary valve regurgitation. Pericardium No pericardial effusion. Aorta Normal size aortic root and proximal ascending aorta. Normal sized inferior vena cava. CONCLUSIONS 1. Normal left ventricular size, systolic function and wall thickness, with no regional wall motion abnormalities. Left ventricular ejection fraction is estimated at 65-70 %. 2. Normal right ventricular size and systolic function. 3. No significant valvular abnormality. 4. Normal pulmonary artery pressure. 5. No significant change when compared to echocardiogram dated 09/27/2017. Marely Davalos MD (Electronically Signed) Final Date: 30 Oct 2020 09:02 S
--- NOTE | 2020-10-29 13:23 | PM.PN ---
Subjective Subjective: Interval history: Hospital course appreciated. Patient underwent amputation today morning with Dr. Reynoso. Tolerated procedure well. No acute events overnight. On examination sitting up in bed. Denies any nausea, vomiting, headache. Vitals/I&O/Wt Last Vital Signs Temp 97.6 F 10/29/20 09:05 Pulse 74 10/29/20 11:25 Resp 18 10/29/20 11:25 BP 152/72 10/29/20 11:25 Pulse Ox 94 10/29/20 11:25 10/28/20 10/29/20 10/29/20 22:59 06:59 14:59 Intake Total 730 / 980 50 / 1030 337.5 / 337.5 Output Total 275 / 275 400 / 675 325 / 325 Balance 455 / 705 -350 / 355 12.5 / 12.5 Weight last 48 hrs Weight 85.548 kg Physical Exam Narrative: EXAM NARRATIVE: General exam is an alert and conversive white male in no apparent distress HEENT: Atraumatic, normocephalic. Pupils equally round. Oropharynx clear. Neck is supple no lymphadenopathy or thyromegaly Cardiovascular regular rate and rhythm without murmur. No S3 or S4 Lungs are clear no wheezing or crackles Abdomen is soft with positive bowel sounds. No obvious organomegaly exam is deferred Extremities show 1+ edema on the left, 2+ on the right. Evidence of venous stasis changes are noted. Right lower extremity shows some more intense erythema overlying the dahl, and some skin breakdown. Right foot surgically bandaged. Neurologic no obvious focal deficits Skin see findings above Data : 10/29/20 04:40 10/29/20 04:40 Micro: Microbiology 10/29/20 08:22 Gram Stain - Final Toe - Right 10/28/20 09:27 Blood Culture - Preliminary Blood NEGATIVE TO DATE 10/28/20 09:09 Blood Culture - Preliminary Blood NEGATIVE TO DATE A&P Assessment and plan (1) Gangrene of toe of right foot: Postop day 0 Associated with cellulitis of the right lower extremity Continue with vancomycin and Zosyn. Arterial duplex and venous Doppler studies appreciated. Concerning for peripheral artery disease. Check lipid panel, HbA1c. Patient does not give any history of angina. Status: Acute (2) Atrial fibrillation: Rate controlled. Takes Eliquis at home which has been withheld because of postoperative status. Can start tomorrow. Status: Acute Qualifiers: Atrial fibrillation type: persistent (not longstanding) Qualified Code(s): I48.19 - Other persistent atrial fibrillation (3) Anemia: Anemia of chronic disease and iron deficiency anemia. Start patient on IV iron supplementation. Will discharge patient on oral supplementation. Check vitamin B12 and folate levels. Status: Acute (4) Type 2 diabetes mellitus: Sliding scale insulin Status: Acute (5) Chronic kidney disease (CKD) stage G3a/A1, moderately decreased glomerular filtration rate (GFR) between 45-59 mL/min/1.73 square meter and albuminuria creatinine ratio less than 30 mg/g: Baseline creatinine around 1.8-2. Creatinine at baseline for now. Medical reconciliation done for nephrotoxic drugs. Patient is on multiple nephrotoxic drugs including Lasix, hydrochlorothiazide, lisinopril. Stop hydrochlorothiazide. Status: Acute (6) GERD (gastroesophageal reflux disease): Continue home meds Status: Acute (7) Hypertension: Goal blood pressure less than 140/90 mmHg. Blood pressure on the higher side. Continue home dose of metoprolol, Lasix, increase the dose of amlodipine to 10 mg daily. Stop hydrochlorothiazide because of CKD. Can start home dose of lisinopril. If needed can add hydralazine. Status: Acute Additional A&P Information Full code. Carb consistent cardiac diet. Heparin 5000 every 12 for now. Restart Eliquis tomorrow. PT from tomorrow. Attestations Medical Necessity Statement*: Patient requires evaluation for management of cellulitis, postoperative care for toe amputation, CKD, elevated blood pressures. 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
[2020-10-29 13:59] LABS: Folate Level 11.7 ng/mL (4.5-32.2); Procalcitonin 0.34 ng/mL (0-0.5); Vitamin B12 335 pg/mL (232-1245)
[2020-10-29 14:10] LABS: Chol HDL Ratio 3.31 mg/dL (1.0-5.00); Cholesterol 116 mg/dL (0-200); HDL Cholesterol 35 mg/dL (60-100); Iron 18 ug/dL (59-158); LDL Cholesterol Calculated 62 mg/dL (50-129); Percent Saturation 9.8 % (20-50); Total Iron Binding Capacity 182 mcg/dl; Triglycerides 94 mg/dL (0-150); Unsaturated Iron Binding 164 ug/dL (112-347); VLDL Cholestrol Calculation 19 mg/dL (0-30)
[2020-10-29] MEDS: hyDRALAzine 10 mg Tablet PO ×2 (15:45→21:03)
[2020-10-29 17:06] LABS: Glucose Point of Care 289 mg/dL (70-110)
[2020-10-29 20:25] LABS: Glucose Point of Care 261 mg/dL (70-110)
[2020-10-30] MEDS: heparin 5,000 unit/mL INJ 1 mL 5000 UNIT SUBCUT (03:27)
[2020-10-30 04:20] VITALS: BP 155/77; PULSE 81; RESP 18; TEMP 37.3; O2SAT 93
[2020-10-30] MEDS: vancomycin 1,250 MG/250 ML PIGGYBACK 250 MG IV (05:17)
[2020-10-30 05:56] LABS: Basophils % 0.5 %; Eosinophils # 0.2 10^3/uL (0.0-0.8); Eosinophils % 2.6 %; Hemoglobin 9.4 g/dL (11.7-16.6); Lymphocytes # 1.2 10^3/uL (0.8-4.8); Lymphocytes % 19.7 %; Mean Corpuscular HGB Conc 31.3 g/dL (30.0-36.0); Mean Corpuscular Hemoglobin 27.5 pg (28.0-34.0); Mean Corpuscular Volume 87.7 fL (80-94); Mean Platelet Volume 9.2 fL (7.4-10.4); Monocytes # 0.5 10^3/uL (0.2-0.9); Nucleated Red Blood Cells % 0 %; Platelet Count 221 10^3/cmm (130-400); Red Blood Count 3.42 10^6/uL (4.1-5.3); Red Cell Distribution Width 15.9 % (12.1-15.1); White Blood Count 6.2 10^3/uL (4.0-10.0)
[2020-10-30 06:16] LABS: Alanine Aminotransferase 12 U/L (0-41); Albumin Level 2.6 g/dL (3.5-5.2); Alkaline Phosphatase 134 IU/L (40-130); Anion Gap 17.9 (5-19); Aspartate Amino Transferase 19 U/L (0-40); Blood Urea Nitrogen 56 mg/dL (8-23); Calcium 8.4 mg/dL (8.5-10.5); Carbon Dioxide 24 mmol/L (22-29); Chloride 102 mmol/L (98-107); Globulin 4.4 g/dL (1.3-4.6); Glucose 148 mg/dL (65-115); Osmolality Calculated 308 mOsm/kg (285-295); Potassium 3.9 mmol/L (3.5-5.1); Sodium 140 mmol/L (136-145); Total Bilirubin 0.4 mg/dL (0.15-1.2)
[2020-10-30 06:33] LABS: Glucose Point of Care 175 mg/dL (70-110)
[2020-10-30] MEDS: piperacillin-tazobactam 3.375 GM in sodium chloride 0.9% (plus) 50 ML IV ×3 (06:46→23:19)
[2020-10-30 07:18] VITALS: BP 154/72; PULSE 81; RESP 14; TEMP 36.8; O2SAT 90
[2020-10-30 08:28] VITALS: PULSE 76; O2SAT 93
[2020-10-30] MEDS: amlodipine 10 mg Tablet PO (09:04)
[2020-10-30] MEDS: pantoprazole DR 40 mg Tablet PO (09:05)
[2020-10-30] MEDS: atorvastatin 40 mg Tablet 20 MG PO (09:05)
[2020-10-30] MEDS: hyDRALAzine 10 mg Tablet PO (09:05)
[2020-10-30] MEDS: FUROsemide 40 mg Tablet PO (09:05)
[2020-10-30] MEDS: neomycin-poly-bacitracin oint 28 gm 1 APPLIC TOPICAL ×2 (09:06→17:03)
[2020-10-30 11:23] VITALS: BP 157/75; PULSE 75; RESP 14; TEMP 37.1; O2SAT 93
[2020-10-30 11:38] LABS: Glucose Point of Care 317 mg/dL (70-110)
--- NOTE | 2020-10-30 13:23 | PM.PN ---
Subjective Subjective: Interval history: No apparent overnight. Patient has remained stable. Denies any nausea vomiting, headache. Blood pressure better today. Sitting up in bed having his food. States pain is well controlled. Vitals/I&O/Wt Last Vital Signs Temp 98.8 F 10/30/20 11:23 Pulse 75 10/30/20 11:23 Resp 14 10/30/20 11:23 BP 157/75 10/30/20 11:23 Pulse Ox 93 10/30/20 11:23 10/29/20 10/30/20 10/30/20 22:59 06:59 14:59 Intake Total 650 / 1347.5 300 / 1647.5 1010 / 1010 Output Total 450 / 775 475 / 1250 550 / 550 Balance 200 / 572.5 -175 / 397.5 460 / 460 Physical Exam Narrative: EXAM NARRATIVE: General exam is an alert and conversive white male in no apparent distress HEENT: Atraumatic, normocephalic. Pupils equally round. Oropharynx clear. Neck is supple no lymphadenopathy or thyromegaly Cardiovascular regular rate and rhythm without murmur. No S3 or S4 Lungs are clear no wheezing or crackles Abdomen is soft with positive bowel sounds. No obvious organomegaly exam is deferred Extremities show 1+ edema on the left, 2+ on the right. Evidence of venous stasis changes are noted. Right lower extremity shows some more intense erythema overlying the dahl, and some skin breakdown. Right foot surgically bandaged. Neurologic no obvious focal deficits Skin see findings above Data : 10/30/20 05:24 10/30/20 05:24 Micro: Microbiology 10/29/20 14:28 MRSA Culture - Final Nose 10/29/20 08:22 Gram Stain - Final Toe - Right 10/28/20 09:27 Blood Culture - Preliminary Blood NEGATIVE TO DATE 10/28/20 09:09 Blood Culture - Preliminary Blood NEGATIVE TO DATE A&P Assessment and plan (1) Gangrene of toe of right foot: Postop day 1 Associated with cellulitis of the right lower extremity Continue with vancomycin and Zosyn. Will de-escalate antibiotics as per the wound culture results. MRSA in the nares positive. Arterial duplex and venous Doppler studies appreciated. Concerning for peripheral artery disease. A1c 7.7. Lipid panel appreciated. Status: Acute (2) Atrial fibrillation: Rate controlled. Takes Eliquis at home which has been withheld because of postoperative status. Restart Eliquis today. Status: Acute Qualifiers: Atrial fibrillation type: persistent (not longstanding) Qualified Code(s): I48.19 - Other persistent atrial fibrillation (3) Anemia: Anemia of chronic disease and iron deficiency anemia. Continue with IV iron supplementation for over 1 g. Day 2/5 today. Will discharge patient on oral supplementation. Check vitamin B12 and folate levels. Status: Acute (4) Type 2 diabetes mellitus: A1c 7.7. Patient is on Metformin 1000 g twice daily at home. Most likely will need addition of an oral hypoglycemic on discharge along with Metformin. For now continue with sliding scale insulin Status: Acute (5) Chronic kidney disease (CKD) stage G3a/A1, moderately decreased glomerular filtration rate (GFR) between 45-59 mL/min/1.73 square meter and albuminuria creatinine ratio less than 30 mg/g: Baseline creatinine around 1.8-2. Creatinine at baseline for now. Medical reconciliation done for nephrotoxic drugs. Patient is on multiple nephrotoxic drugs including Lasix, hydrochlorothiazide, lisinopril. Stop hydrochlorothiazide. Status: Acute (6) GERD (gastroesophageal reflux disease): Continue home meds Status: Acute (7) Hypertension: Goal blood pressure less than 140/90 mmHg. Blood pressure on the higher side. Continue home dose of metoprolol, Lasix, increase the dose of amlodipine to 10 mg daily. Hydralazine 25 mg 3 times daily. Status: Acute Additional A&P Information Full code. Carb consistent cardiac diet. Eliquis will help with DVT prophylaxis. PT/OT evaluation. Discharge planning: Home with home health. Can plan to discharge once culture results from wound are finalized on oral antibiotics for cellulitis with follow-up at wound care clinic as an outpatient. Attestations Medical Necessity Statement*: Patient requires further hospitalization for management of cellulitis, dry gangrene of toe of right foot post amputation mild antihypertensives were adjusted and culture results and sensitivities are awaited to determine outpatient oral antibiotic therapy. Time Spent in Patient Care: Greater than 35 minutes (>than 50% of time spent in counselling and/or direct pt care on unit). Coding Level of Care Code Acute Orange Picker Machine Operator for Omi Hernández Diagnoses Gangrene of toe of right foot I96 Atrial fibrillation I48.19 Atrial fibrillation type: persistent (not longstanding) Anemia D64.9 Type 2 diabetes mellitus E11.9 Chronic kidney disease (CKD) stage G3a/A1, moderately decreased glomerular filtration rate (GFR) between 45-59 mL/min/1.73 square meter and albuminuria creatinine ratio less than 30 mg/g N18.31 GERD (gastroesophageal reflux disease) K21.9 Hypertension I10
[2020-10-30] MEDS: hyDRALAzine 25 mg Tablet PO ×2 (15:49→21:41)
[2020-10-30 16:00] VITALS: BP 160/61; PULSE 75; RESP 13; TEMP 36.6; O2SAT 91
[2020-10-30 16:59] LABS: Glucose Point of Care 290 mg/dL (70-110)
[2020-10-30] MEDS: apixaban 5 mg Tablet PO (17:02)
[2020-10-30 20:00] VITALS: BP 150/63; PULSE 75; RESP 20; TEMP 36.9; O2SAT 91
[2020-10-30 20:47] LABS: Glucose Point of Care 255 mg/dL (70-110)
[2020-10-31] VITALS: BP 141/61; PULSE 75; RESP 20; TEMP 37; O2SAT 92
[2020-10-31 04:00] VITALS: BP 148/76; PULSE 77; RESP 20; TEMP 37; O2SAT 90
[2020-10-31 05:06] LABS: Basophils # 0.1 10^3/uL (0.0-0.1); Basophils % 0.8 %; Eosinophils # 0.2 10^3/uL (0.0-0.8); Eosinophils % 2.7 %; Hematocrit 27.9 % (42.0-52.0); Hemoglobin 9.1 g/dL (11.7-16.6); Lymphocytes # 1.5 10^3/uL (0.8-4.8); Mean Corpuscular HGB Conc 32.6 g/dL (30.0-36.0); Mean Corpuscular Hemoglobin 27.4 pg (28.0-34.0); Mean Platelet Volume 9.2 fL (7.4-10.4); Monocytes # 0.5 10^3/uL (0.2-0.9); Monocytes % 7.9 %; Neutrophils # 3.98 10^3/uL (1.8-7.7); Neutrophils % 64.3 %; Nucleated Red Blood Cells % 0 %; Platelet Count 246 10^3/cmm (130-400); Red Blood Count 3.32 10^6/uL (4.1-5.3); Red Cell Distribution Width 15.7 % (12.1-15.1); White Blood Count 6.2 10^3/uL (4.0-10.0)
[2020-10-31 05:29] LABS: Alanine Aminotransferase 12 U/L (0-41); Albumin Level 2.8 g/dL (3.5-5.2); Alkaline Phosphatase 132 IU/L (40-130); Anion Gap 12.7 (5-19); Aspartate Amino Transferase 17 U/L (0-40); Blood Urea Nitrogen 58 mg/dL (8-23); Calcium 8.4 mg/dL (8.5-10.5); Carbon Dioxide 26 mmol/L (22-29); Chloride 100 mmol/L (98-107); Globulin 4.2 g/dL (1.3-4.6); Glucose 159 mg/dL (65-115); Osmolality Calculated 300 mOsm/kg (285-295); Potassium 3.7 mmol/L (3.5-5.1); Sodium 135 mmol/L (136-145); Total Bilirubin 0.4 mg/dL (0.15-1.2)
[2020-10-31 05:30] LABS: Vancomycin Trough 22.3 ug/mL (10-15)
[2020-10-31] MEDS: piperacillin-tazobactam 3.375 GM in sodium chloride 0.9% (plus) 50 ML IV ×3 (06:02→23:47)
[2020-10-31 06:42] LABS: Glucose Point of Care 184 mg/dL (70-110)
[2020-10-31 07:27] VITALS: BP 171/69; PULSE 76; RESP 18; TEMP 36.7; O2SAT 90
[2020-10-31] MEDS: atorvastatin 40 mg Tablet 20 MG PO (09:34)
[2020-10-31] MEDS: pantoprazole DR 40 mg Tablet PO (09:34)
[2020-10-31] MEDS: apixaban 5 mg Tablet PO ×2 (09:34→17:32)
[2020-10-31] MEDS: FUROsemide 40 mg Tablet PO (09:34)
[2020-10-31] MEDS: amlodipine 10 mg Tablet PO (09:34)
[2020-10-31] MEDS: hyDRALAzine 25 mg Tablet PO ×3 (09:35→22:05)
[2020-10-31] MEDS: neomycin-poly-bacitracin oint 28 gm 1 APPLIC TOPICAL ×2 (09:36→17:32)
--- NOTE | 2020-10-31 10:04 | DCPLANNER ---
Pg 2 of IM updated and reviewed with pt. He declares that he would definitely use this opportunity if he was being d/c'd today. Frame Bander tells him several times - we do not know when he is being d/c'd however he certainly should use it if needed when the time comes. Copy provided.
[2020-10-31 11:13] LABS: Glucose Point of Care 291 mg/dL (70-110)
[2020-10-31] MEDS: vancomycin 1,250 MG/250 ML PIGGYBACK 250 MG IV (11:39)
--- NOTE | 2020-10-31 11:44 | PM.PN ---
Subjective Subjective: Interval history: States he has been unable to walk so far. Overall the leg is feeling all right. He tells me he monitors his glucose closely at home as he is got a continuous monitor which makes it easy. He says his is an [employer] who also helps him keep monitoring his blood pressures. He tells me he intends to follow-up with wound care after discharge. Vitals/I&O/Wt Last Vital Signs Temp 98.1 F 10/31/20 07:27 Pulse 76 10/31/20 07:27 Resp 18 10/31/20 07:27 BP 171/69 10/31/20 07:27 Pulse Ox 90 10/31/20 07:27 10/30/20 10/31/20 10/31/20 22:59 06:59 14:59 Intake Total 170 / 1180 50 / 1230 170 / 170 Output Total 775 / 1325 950 / 2275 Balance -605 / -145 -900 / -1045 170 / 170 Physical Exam Const: COMMON NORMALS: no acute distress and patient oriented x3 HENMT: COMMON NORMALS: oropharynx normal Neck/C-Spine: COMMON NORMALS: no JVD Resp: COMMON NORMALS: normal respiratory effort and clear to auscultation bilaterally AUSCULTATION: clear to auscultation bilaterally Cardio: COMMON NORMALS: no JVD, regular rhythm, S1 normal heart sound present, S2 normal heart sound present and No murmurs present (Cardio) RHYTHM: regular rhythm HEART SOUNDS: S1 normal heart sound present and S2 normal heart sound present GI: COMMON NORMALS: Normal to inspection, nondistended, normoactive bowel sounds present, Soft to palpation and non-tender PALPATION: Yes Soft to palpation Extremity: COMMON NORMALS: no joint enlargement OTHER: Sutures along anterolateral side of the distal right foot status post amputation, without fresh bleeding, this morning during dressing change reported minimal bleeding, no purulent discharge. Surrounding erythema appears to be subsiding, on the dorsal lateral aspect of the foot. No fluctuation. Minimal swelling at the right ankle. Neuro: COMMON NORMALS: patient oriented x3 and moves all extremities Skin: OTHER: Chronic venous stasis dermatitis on lower legs. Right foot erythema, swelling appears to be subsiding. Data : 10/31/20 04:09 10/31/20 04:09 Micro: Microbiology 10/29/20 08:22 Gram Stain - Final Toe - Right Wound Culture - Preliminary 10/29/20 14:28 MRSA Culture - Final Nose A&P Assessment and plan (1) Gangrene of toe of right foot: Status post amputation Right fifth toe. Discussed with him again concern regarding poor wound healing. He states that he keeps a close eye on his diabetes and blood pressures and intends to follow-up with wound care clinic. States so far he has not walked. PT assessment is ordered. Pending culture results for transition to oral antibiotics. Continue with vancomycin and Zosyn. Will de-escalate antibiotics as per the wound culture results. MRSA in the nares positive. Arterial duplex and venous Doppler studies appreciated. Concerning for mild peripheral artery disease. A1c 7.7. Lipid panel appreciated. Status: Acute (2) Atrial fibrillation: Resume metoprolol. Rate controlled. Eliquis Status: Acute Qualifiers: Atrial fibrillation type: persistent (not longstanding) Qualified Code(s): I48.19 - Other persistent atrial fibrillation (3) Anemia: Anemia of chronic disease and iron deficiency anemia. Continue with IV iron supplementation for over 1 g. Oral supplementation on discharge. Check vitamin B12 and folate levels. Status: Acute (4) Type 2 diabetes mellitus: A1c 7.7. Patient is on Metformin 1000 g twice daily at home. For now continue with sliding scale insulin Status: Acute (5) Chronic kidney disease (CKD) stage G3a/A1, moderately decreased glomerular filtration rate (GFR) between 45-59 mL/min/1.73 square meter and albuminuria creatinine ratio less than 30 mg/g: Baseline creatinine around 1.8-2. Creatinine at baseline for now. Status: Acute (6) GERD (gastroesophageal reflux disease): Continue home meds Status: Acute (7) Hypertension: Resume metoprolol. Continue amlodipine Hydralazine 25 mg 3 times daily. Status: Acute Additional A&P Information Full code. Carb consistent cardiac diet. Eliquis will help with DVT prophylaxis. PT/OT evaluation. Discharge planning: Home with home health. Can plan to discharge once culture results from wound are finalized on oral antibiotics for cellulitis with follow-up at wound care clinic as an outpatient. Attestations Medical Necessity Statement*: Continue admission for assessment management of complicated infection of right foot, status post amputation of fifth toe due to infection, osteomyelitis, gangrene, with surrounding cellulitis of the right foot appears to be gradually improving, elevated risk of poor healing, follow-up culture results and sensitivities for adjustment of antibiotic regimen for discharge. Coding Level of Care Code Acute [facility] Fwd Diagnoses Gangrene of toe of right foot I96 Atrial fibrillation I48.19 Atrial fibrillation type: persistent (not longstanding) Anemia D64.9 Type 2 diabetes mellitus E11.9 Chronic kidney disease (CKD) stage G3a/A1, moderately decreased glomerular filtration rate (GFR) between 45-59 mL/min/1.73 square meter and albuminuria creatinine ratio less than 30 mg/g N18.31 GERD (gastroesophageal reflux disease) K21.9 Hypertension I10
[2020-10-31 12:00] VITALS: BP 183/88; PULSE 81; RESP 18; TEMP 36.5; O2SAT 92
[2020-10-31] MEDS: metoprolol tartrate 25 mg Tablet PO (12:02)
--- NOTE | 2020-10-31 14:53 | PC.NURSE ---
patient requesting to speak with administration. 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
[2020-10-31 16:00] VITALS: BP 163/87; PULSE 79; RESP 18; TEMP 36.7; O2SAT 93
[2020-10-31 17:14] LABS: Glucose Point of Care 277 mg/dL (70-110)
[2020-10-31 21:07] VITALS: BP 144/76; PULSE 72; RESP 17; TEMP 36.8; O2SAT 93
[2020-10-31 21:16] LABS: Glucose Point of Care 346 mg/dL (70-110)
[2020-11-01] VITALS (8 sets, daily range): BP systolic 124–172; BP diastolic 68–78; PULSE 61–84; RESP 17–18; TEMP 36.8–37; O2SAT 93–94
[2020-11-01 05:35] LABS: Basophils % 0.7 %; Eosinophils # 0.2 10^3/uL (0.0-0.8); Eosinophils % 3.1 %; Hemoglobin 9.6 g/dL (11.7-16.6); Lymphocytes # 1.5 10^3/uL (0.8-4.8); Lymphocytes % 25.6 %; Mean Corpuscular Hemoglobin 26.9 pg (28.0-34.0); Mean Platelet Volume 8.8 fL (7.4-10.4); Monocytes # 0.5 10^3/uL (0.2-0.9); Monocytes % 9.2 %; Neutrophils # 3.61 10^3/uL (1.8-7.7); Neutrophils % 61.1 %; Nucleated Red Blood Cells % 0 %; Platelet Count 250 10^3/cmm (130-400); Red Blood Count 3.57 10^6/uL (4.1-5.3); Red Cell Distribution Width 15.5 % (12.1-15.1); White Blood Count 5.9 10^3/uL (4.0-10.0)
[2020-11-01 05:52] LABS: Alanine Aminotransferase 16 U/L (0-41); Albumin Level 2.8 g/dL (3.5-5.2); Alkaline Phosphatase 124 IU/L (40-130); Aspartate Amino Transferase 20 U/L (0-40); Blood Urea Nitrogen 50 mg/dL (8-23); Calcium 8.3 mg/dL (8.5-10.5); Carbon Dioxide 27 mmol/L (22-29); Chloride 98 mmol/L (98-107); Globulin 4.1 g/dL (1.3-4.6); Glucose 180 mg/dL (65-115); Osmolality Calculated 296 mOsm/kg (285-295); Sodium 134 mmol/L (136-145); Total Bilirubin 0.4 mg/dL (0.15-1.2); Total Protein 6.9 g/dL (6.6-8.7)
[2020-11-01 06:27] LABS: Glucose Point of Care 174 mg/dL (70-110)
[2020-11-01] MEDS: piperacillin-tazobactam 3.375 GM in sodium chloride 0.9% (plus) 50 ML IV ×2 (06:29→13:49)
[2020-11-01] MEDS: atorvastatin 40 mg Tablet 20 MG PO (09:39)
[2020-11-01] MEDS: hyDRALAzine 25 mg Tablet PO ×2 (09:39→13:48)
[2020-11-01] MEDS: pantoprazole DR 40 mg Tablet PO (09:39)
[2020-11-01] MEDS: metoprolol tartrate 25 mg Tablet PO (09:39)
[2020-11-01] MEDS: apixaban 5 mg Tablet PO (09:39)
[2020-11-01] MEDS: FUROsemide 40 mg Tablet PO (09:40)
[2020-11-01] MEDS: amlodipine 10 mg Tablet PO (09:40)
[2020-11-01] MEDS: neomycin-poly-bacitracin oint 28 gm 1 APPLIC TOPICAL (09:40)
[2020-11-01 11:03] LABS: Glucose Point of Care 385 mg/dL (70-110)
--- NOTE | 2020-11-01 15:20 | P.DS_ITS ---
Discharge Providers Date of Admission: 10/28/20 11:57 Date of Discharge: November 01, 2020 Attending Provider at Admission: Franc Hannon MD Attending Provider at Discharge: Jerry Colunga Primary Care Provider: Jose Patiño MD Diagnoses at Discharge Discharge Diagnosis (1) Gangrene of toe of right foot: Status: Acute (2) Atrial fibrillation: Status: Acute Qualifiers: Atrial fibrillation type: persistent (not longstanding) Qualified Code(s): I48.19 - Other persistent atrial fibrillation (3) Anemia: Status: Acute (4) Type 2 diabetes mellitus: Status: Acute (5) Chronic kidney disease (CKD) stage G3a/A1, moderately decreased glomerular filtration rate (GFR) between 45-59 mL/min/1.73 square meter and albuminuria creatinine ratio less than 30 mg/g: Status: Acute (6) GERD (gastroesophageal reflux disease): Status: Acute (7) Hypertension: Status: Acute Reason for Visit Reason for Visit: Poss Infected Toe on R. Side/Diabetic Hospital Course Hospital Course Pleasant 74-year-old gentleman with diabetes, chronic kidney disease, hypertension, HLD, atrial fibrillation on chronic anticoagulation, anemia, with right fifth toe infection was admitted for assessment management due to gangrene and surrounding cellulitis. Was treated with IV antibiotics with Zosyn, vancomycin, assessed by vascular surgery. X-ray of the foot was obtained, as well as CT. CT showed findings consistent with osteomyelitis with bone destruction in the head of the proximal fifth phalanx and the IP joint and adjacent middle phalanx. Diffuse soft tissue edema. Arterial line venous studies were obtained. Noted possibly severe peripheral arterial disease in the infrapopliteal left leg, however, possibly only mild on the right on arterial studies. Venous duplex negative for DVT. Assessed by echocardiogram due to concern of possible heart failure history, but with finding of normal ejection fraction, no R WMA with otherwise unremarkable TTE. He underwent right fifth toe amputation on 10/29, subsequently continued on IV antibiotics. MRSA PCR noted positive. Wound cultures growing staph aureus among additional organisms thought to be skin contaminants. Blood cultures preliminary so far negative. Results discussed with him. With concern for poor healing he is instructed to continue meticulous wound care. Asked to follow-up with wound care clinic which she intends to do. He will also complete additional 10 days of antibiotics for now with doxycycline and ciprofloxacin, although sensitivities on the wound culture will not be available for at least another day or so, and so antibiotic regimen as discussed with him may still change. Please follow-up final cultures at next visit. His cellulitis surrounding the wound has been significantly improving. There has been no purulent drainage. Wound appears clean. Minimal bleeding. He has gotten up and walks short distances with physical therapy. Stated that at home he has had home health. Renal function during hospitalization remained stable. A number of medications were adjusted to reduce the risk of kidney injury with discontinuation of HCTZ. Reduction in dose of lisinopril at discharge. Due to poorly controlled hypertension he is initiated also on hydralazine. Amlodipine dosing increased. Metoprolol dose for now was decreased to 25 mg due to noted heart rates occasionally down to low 60s. Please continue to optimize blood pressure and diabetes control. Due to improvement in insulin sensitivity his Levemir dose for now is decreased down to 10 units daily, with continuation of sliding scale insulin. Please follow-up and adjust as appropriate at the next visit. A1c noted 7.7. Please also follow-up regarding chronic kidney disease, as well as iron deficiency anemia in the setting of continued anticoagulation. His statin dose is increased at discharge. Due to anemia and need for anticoagulation for now antiplatelet agent is not added. Please follow-up regarding peripheral artery disease, possibly severe, of left lower extremity. Physical Exam Const: COMMON NORMALS: no acute distress and patient oriented x3 HENMT: COMMON NORMALS: oropharynx normal Neck/C-Spine: COMMON NORMALS: no JVD Resp: COMMON NORMALS: normal respiratory effort and clear to auscultation bilaterally AUSCULTATION: clear to auscultation bilaterally Cardio: COMMON NORMALS: no JVD, regular rhythm, S1 normal heart sound present, S2 normal heart sound present and No murmurs present (Cardio) RHYTHM: regular rhythm HEART SOUNDS: S1 normal heart sound present and S2 normal heart sound present GI: COMMON NORMALS: Normal to inspection, nondistended, normoactive bowel sounds present, Soft to palpation and non-tender PALPATION: Yes Soft to palpation Extremity: COMMON NORMALS: no joint enlargement OTHER: Sutures along anterolateral side of the distal right foot status post amputation, tiny amount of coagulated blood, no purulent discharge. Surrounding erythema appears on the dorsal lateral aspect of the foot improving. No fluctuation. Neuro: COMMON NORMALS: patient oriented x3 and moves all extremities Skin: OTHER: Chronic venous stasis dermatitis on lower legs. Right foot erythema, swelling appears to be subsiding. Discharge Data Data Completed and Pending: Completed Studies During Hospitalization Category Date Time Status CT foot RT w con [id number] Stat Cat Scan 10/28/20 08:58 Completed XR chest 1V jc ble [id number] Routine Exams 10/28/20 13:29 Completed XR foot RT min 3V * [id number] Stat Exams 10/28/20 08:48 [place] [id number] Rout ine Ultrasound 10/28/20 14:35 Completed CV echo complete* [id number] Routine Ultrasound 10/29/20 12:46 [place] [id number] Routin e Ultrasound 10/28/20 14:35 Completed Pending at discharge Category Date Time Status Blood Culture Sta t Lab 10/28/20 09:27 Results Complete Blood Co unt w/Auto AM LABS Lab 11/02/20 04:00 Ordered Complete Blood Co unt w/Auto AM LABS Lab 11/03/20 04:00 Ordered Comprehensive Met abolic Panel AM LA BS Lab 11/02/20 04:00 Ordered Comprehensive Met abolic Panel AM LA BS Lab 11/03/20 04:00 Ordered Immunochemical Fe nader OCB Routine Lab 10/28/20 13:45 Uncollected Vancomycin Trough Timed Lab 11/04/20 05:00 Ordered Wound Culture and Gram Stain Routin e Lab 10/29/20 08:22 Results Pathology: Surgic al [PTH] Routine Pth 10/29/20 08:52 Received Labs from last 24 hours 11/01/20 11/01/20 11/01/20 10:41 06:19 05:15 WBC RBC Hgb Hct MCV MCH MCHC RDW Plt Count MPV Neut % (Auto) Lymph % (Auto) [place] % (Auto) Eos % (Auto) Baso % (Auto) Neut # (Auto) Lymph # (Auto) [place] # (Auto) Eos # (Auto) Baso # (Auto) Nucleated RBC % (a uto) Nucleated RBCs # Sodium 134 L Potassium 4.0 Chloride 98 Carbon Dioxide 27 Anion Gap 13.0 BUN 50 H Creatinine 1.9 H GFR Calculation Not Reportable Glucose 180 H POC Glucose 385 H 174 H Calculated Osmolal ity 296 H Calcium 8.3 L Total Bilirubin 0.4 AST 20 ALT 16 Alkaline Phosphata se 124 Total Protein 6.9 Albumin 2.8 L Globulin 4.1 11/01/20 10/31/20 10/31/20 05:15 21:11 17:06 WBC 5.9 RBC 3.57 L Hgb 9.6 L Hct 30.0 L MCV 84.0 MCH 26.9 L MCHC 32.0 RDW 15.5 H Plt Count 250 MPV 8.8 Neut % (Auto) 61.1 Lymph % (Auto) 25.6 [place] % (Auto) 9.2 Eos % (Auto) 3.1 Baso % (Auto) 0.7 Neut # (Auto) 3.61 Lymph # (Auto) 1.5 [place] # (Auto) 0.5 Eos # (Auto) 0.2 Baso # (Auto) 0.0 Nucleated RBC % (a uto) 0 Nucleated RBCs # 0.0 Sodium Potassium Chloride Carbon Dioxide Anion Gap BUN Creatinine GFR Calculation Glucose POC Glucose 346 H 277 H Calculated Osmolal ity Calcium Total Bilirubin AST ALT Alkaline Phosphata se Total Protein Albumin Globulin Vitals: Last Vital Signs Temp 98.2 F 11/01/20 11:25 Pulse 65 11/01/20 11:25 Resp 17 11/01/20 11:25 BP 152/75 11/01/20 11:25 Pulse Ox 93 11/01/20 11:25 Discharge Plan Discharge Patient Disposition: Home Health Service Condition: Stable Prescriptions: New atorvastatin 40 mg Tablet 20 mg PO DAILY Qty: 30 RF: 0 hydralazine 25 mg Tablet 25 mg PO TID Qty: 90 RF: 0 lisinopril 10 mg tablet 10 mg PO DAILY Qty: 30 RF: 0 ciprofloxacin HCl 500 mg tablet 500 mg PO BID Qty: 20 RF: 0 doxycycline hyclate 100 mg tablet 100 mg PO BID 10 Days Qty: 20 RF: 0 insulin aspart U-100 [Novolog U-100 Insulin aspart] 100 unit/mL Solution See Rx Instructions .ROUTE .COMPLEX Qty: 10 RF: 0 Triple Antibiotic 3.5mg-400 unit- 5,000 unit/gram Ointment 1 applic topical BID Qty: 15 RF: 0 amlodipine 10 mg Tablet 10 mg PO DAILY Qty: 30 RF: 0 Continued metformin 1,000 mg tablet 1,000 mg PO BID RF: 0 pantoprazole 40 mg tablet,delayed release (DR/EC) 40 mg PO DAILY RF: 0 ferrous sulfate 325 mg (65 mg iron) tablet,delayed release (DR/EC) 325 mg PO DAILY RF: 0 tramadol 50 mg tablet 50 mg PO DAILY PRN (Reason: pain) Qty: 30 RF: 1 furosemide 40 mg tablet 40 mg PO DAILY 90 Days Qty: 90 RF: 3 Eliquis 5 mg tablet 5 mg PO BID 90 Days Qty: 180 RF: 3 Changed Levemir FlexTouch U-100 Insuln 100 unit/mL (3 mL) insulin pen 10 unit SUBCUT DAILY Qty: 0 RF: 0 metoprolol tartrate 50 mg Tablet 25 mg PO DAILY Qty: 0 RF: 0 Discontinued atorvastatin 10 mg tablet 10 mg PO DAILY RF: 0 lisinopril 40 mg tablet 40 mg PO DAILY RF: 0 hydrochlorothiazide 25 mg tablet 25 mg PO DAILY Qty: 90 RF: 0 amlodipine 5 mg tablet 5 mg PO DAILY 90 Days Qty: 90 RF: 3 Discharge Orders: Discharge Order (Routine); Ordered 11/01/20 Ordered By: Jerry Colunga Referrals: [facility] [Outside] Jose Patiño MD [Primary Care Provider] - 11/07/20 10:30 am WOUND CARE CLINIC, [Staff Physician] - 11/03/20 1:00 pm (after discharge [phone] ) Discharge Diet: Diabetic Discharge Activity: As per PT/OT instructions Patient Instructions: Ciprofloxacin (By mouth), Lisinopril (By mouth), Doxycycline (By mouth), Bacitracin/Neomycin/Polymyxin B (On the skin), Hydralazine (By mouth), Methicillin Resistant Staphylococcus Aureus (GEN), Chronic Kidney Disease (GEN), Diabetic Foot Care (GEN), Giving an Insulin Injection (GEN), Iron Deficiency Anemia (GEN), Diabetic Foot Ulcers (GEN), Hypertension (GEN), Fall Prevention (GEN), Opioid Safety Activity Restrictions/Additional Instructions: Please continue wound care at home, twice daily if possible dressing changes with antibiotic ointment, Telfa, gauze wrap. Please follow-up with wound care clinic. Please note that Staphylococcus aureus is noted growing from the wound with a few other bacteria which are thought to be skin contaminants. Due to positive MRSA test from the nasal swab, for now coverage for possible resistant staphylococcal infection is provided. However, please note that the final result of the wound culture still pending, and in case there is a change of antibiotics needed you may be contacted. Please have your primary care provider and/or wound care clinic follow-up the final culture results of the next visit. Please follow-up regarding chronic kidney disease and iron deficiency anemia with your primary provider. Please continue to work to optimize hypertension control with your primary provider. Please monitor blood pressures at home at least twice daily. Please discuss with your primary provider noted probable severe peripheral artery disease in the left leg. In the right lower extremity imaging appears to show mild severity of peripheral arterial disease. Discharge Attestations Time Spent in Discharge Care*: greater than 30 min Quality Metrics Clinical Quality Measures During this hospital stay, did patient experience: None Coding Level of Care Code Acute [facility] note Diagnoses Gangrene of toe of right foot I96 Atrial fibrillation I48.19 Atrial fibrillation type: persistent (not longstanding) Anemia D64.9 Type 2 diabetes mellitus E11.9 Chronic kidney disease (CKD) stage G3a/A1, moderately decreased glomerular filtration rate (GFR) between 45-59 mL/min/1.73 square meter and albuminuria creatinine ratio less than 30 mg/g N18.31 GERD (gastroesophageal reflux disease) K21.9 Hypertension I10
--- NOTE | 2020-11-01 15:57 | PC.NURSE ---
faxed SBAR to BRISSA TAYLOR
--- NOTE | 2020-11-01 17:39 | PC.NURSE ---
discharge instrucations given to and patient and both verbalized understanding. patient taken to private vehicle via wheelchair by staff.
== END 2020-11-01 17:41 | disposition home health service (06) | DRG 256 ==
LOC: ER 08:59 → MEDSURG 13:04
PROVIDERS: Student in an Organized Health Care Education/Training Program; Thoracic Surgery (Cardiothoracic Vascular Surgery); Admitting Provider Internal Medicine; Emergency Provider Family Medicine; PCP Family Medicine; Visit Provider Internal Medicine
PROC: 0Y6X0Z0 Detachment at Right 5th Toe, Complete, Open Approach (ICD-10-PCS; principal; 2020-10-29 08:00)
DX: E11.52 Type 2 diabetes mellitus with diabetic peripheral angiopathy with gangrene (principal); I96 Gangrene, not elsewhere classified; M86.9 Osteomyelitis, unspecified; L03.115 Cellulitis of right lower limb; I48.19 Other persistent atrial fibrillation; E11.69 Type 2 diabetes mellitus with other specified complication; E11.42 Type 2 diabetes mellitus with diabetic polyneuropathy; E11.22 Type 2 diabetes mellitus with diabetic chronic kidney disease; I12.9 Hypertensive chronic kidney disease with stage 1 through stage 4 chronic kidney disease, or unspecified chronic kidney disease; N18.31 Chronic kidney disease, stage 3a; Z89.422 Acquired absence of other left toe(s); D63.1 Anemia in chronic kidney disease; K21.9 Gastro-esophageal reflux disease without esophagitis; K46.9 Unspecified abdominal hernia without obstruction or gangrene; E78.00 Pure hypercholesterolemia, unspecified; D50.9 Iron deficiency anemia, unspecified; A49.01 Methicillin susceptible Staphylococcus aureus infection, unspecified site; Z79.84 Long term (current) use of oral hypoglycemic drugs; Z79.01 Long term (current) use of anticoagulants
CPT/HCPCS: 36415; 36416; 71045; 73630; 73701; 80048; 80053; 80061; 80202; 81001; 82607; 82728; 82746; 82962; 83036; 83540; 83550; 84145; 84443; 85025; 87040; 87070; 87075; 87077; 87186; 87205; 87641; 88305; 93005; 93306; 93925; 93970; 96365; 96372; 97116; 97161; 97530; 99285; J0690; J1170; J1644; J1815; J2370; J2405; J2543; J2704; J3370; J7030; J7050; L3260; Q9967

== ENCOUNTER 2020-11-03 13:12 | Outpatient (CLI) | payer MEDICARE, SELFPAY | END 2020-11-03 13:13 | disposition home or self-care (01) | LOC: WOUND 13:13 | PROVIDERS: PCP Family Medicine; Visit Provider Thoracic Surgery (Cardiothoracic Vascular Surgery) | DX: L03.115 Cellulitis of right lower limb (principal); Z89.421 Acquired absence of other right toe(s) | CPT/HCPCS: G0463 ==

== ENCOUNTER 2020-11-10 14:55 | Outpatient (CLI) | payer MEDICARE, SELFPAY | END 2020-11-10 14:56 | disposition home or self-care (01) | LOC: WOUND 14:56 | PROVIDERS: PCP Family Medicine; Visit Provider Thoracic Surgery (Cardiothoracic Vascular Surgery) | DX: Z89.421 Acquired absence of other right toe(s) (principal) | CPT/HCPCS: 99212 ==

== ENCOUNTER 2020-11-17 14:42 | Outpatient (CLI) | payer MEDICARE, SELFPAY | END 2020-11-17 14:43 | disposition home or self-care (01) | LOC: WOUND 14:43 | PROVIDERS: PCP Family Medicine; Visit Provider Thoracic Surgery (Cardiothoracic Vascular Surgery) | DX: Z89.421 Acquired absence of other right toe(s) (principal) | CPT/HCPCS: 99212 ==

== ENCOUNTER 2020-11-28 14:58 | Outpatient (CLI) | payer MEDICARE, SELFPAY | END 2020-11-28 14:59 | disposition home or self-care (01) | LOC: WOUND 14:58 | PROVIDERS: PCP Family Medicine; Visit Provider Thoracic Surgery (Cardiothoracic Vascular Surgery) | DX: T81.31XA Disruption of external operation (surgical) wound, not elsewhere classified, initial encounter (principal); Y83.8 Other surgical procedures as the cause of abnormal reaction of the patient, or of later complication, without mention of misadventure at the time of the procedure; Z89.421 Acquired absence of other right toe(s) | CPT/HCPCS: G0463 ==

== ENCOUNTER → 2020-11-29 14:58 | Outpatient (BNVA) | payer MEDICARE, SELFPAY | PROVIDERS: PCP Family Medicine; Visit Provider Family Medicine | DX: N18.31 Chronic kidney disease, stage 3a (principal); I87.2 Venous insufficiency (chronic) (peripheral) | CPT/HCPCS: 80048 ==

== ENCOUNTER 2020-12-05 14:05 | Outpatient (CLI) | payer MEDICARE, SELFPAY | END 2020-12-05 14:06 | disposition home or self-care (01) | LOC: WOUND 14:06 | PROVIDERS: PCP Family Medicine; Visit Provider Thoracic Surgery (Cardiothoracic Vascular Surgery) | DX: T81.31XA Disruption of external operation (surgical) wound, not elsewhere classified, initial encounter (principal); Y83.8 Other surgical procedures as the cause of abnormal reaction of the patient, or of later complication, without mention of misadventure at the time of the procedure; Z89.421 Acquired absence of other right toe(s) | CPT/HCPCS: 11042 ==

== ENCOUNTER 2020-12-08 22:42 | Emergency (ER) | payer MEDICARE, SELFPAY ==
--- NOTE | 2020-12-08 22:59 | ED_ITS ---
HPI - Fall General: Chief Complaint: General Medical Stated Complaint: fall Time Seen by Provider: 12/08/20 22:46 History of Present Illness: HPI Narrative: 74-year-old male comes in today with complaints of fall. Patient had fallen twice at home today and had to have the EMS dispatch twice to help him get up. After the second fall this evening the patient's daughters really wanted him to be checked out. Patient reports that when he gets down in the floor he cannot get up without assistance and has to call for help. Patient denies any injury. Patient appears chronically ill. Patient has bilateral lower extremity edema which is chronic, patient also has diabetes mellitus, hyperlipidemia, CKD, hypertension, and does take rivaroxaban for venous insufficiency in bilateral lower extremities. Patient reports that he got up and went to the bathroom to give himself a sponge bath at the sink when he became weak and had to sit down on the floor. That is when EMS was dispatched to help him get back up to standing. MD complaint: fall Fall from: standing Fall witnessed: no Place fall occurred: home Loss of consciousness: None Prolonged down time: no Symptoms prior to fall: other (Weakness) Review of Systems General: Reports: 10 or more systems reviewed and unremarkable except in HPI and below Const: Reports: other (Weakness in bilateral lower extremities.) [facility] ED PFSH: Medical History (Updated 12/09/20 @ 00:51 by MILDRED Hollis) Anemia Atrial fibrillation Chronic kidney disease (CKD) stage G3a/A1, moderately decreased glomerular filtration rate (GFR) between 45-59 mL/min/1.73 square meter and albuminuria creatinine ratio less than 30 mg/g Diabetes Gangrene of toe of right foot GERD (gastroesophageal reflux disease) History of abdominal hernia Hypercholesteremia Hypertension Type 2 diabetes mellitus Venous insufficiency of both lower extremities Surgical History Amputation of fifth toe of left foot History of amputation of toe History of appendectomy History of foot surgery Family History Other Stroke Social History Smoking and tobacco status: never smoked Alcohol intake: never Physical Exam Const: COMMON NORMALS: no acute distress and patient oriented x3 GENERAL APPEARANCE: cooperative HENMT: COMMON NORMALS: normocephalic, TM's normal bilaterally and Normal external nose present HEAD & SCALP: normal to inspection and normocephalic NOSE: Normal external nose present TYMPANIC MEMBRANE: TM's normal bilaterally MOUTH: Normal oral and palatal mucosa present Eye: GENERAL EYE: appearance normal, both eyes and all related structures Neck/C-Spine: COMMON NORMALS: full ROM Chest: COMMONS NORMALS: normal inspection of the chest Resp: COMMON NORMALS: normal respiratory effort EFFORT & INSPECTION: Yes able to speak in complete sentences Cardio: COMMON NORMALS: regular rate and regular rhythm RATE: regular rate RHYTHM: regular rhythm GI: COMMON NORMALS: non-tender Back/Pelvis: COMMON NORMALS: thoracic and lumbar spine normal to inspection Extremity: NARRATIVE EXTREMITY EXAM: Increased swelling bilateral lower extremities with redness, mild induration, and redness. Neuro: COMMON NORMALS: patient oriented x3 and moves all extremities Psych: COMMON NORMALS: mental status grossly normal and cooperative Skin: COMMON NORMALS: no rashes or lesions noted GENERAL SKIN EXAM: no rashes or lesions noted Course ED course: Reviewed patient with Dr. Romero, attending ER physician. Patient has some cellulitis to the right lower extremity. Reviewed history and labs with him. He recommended treating patient with 1 g of vancomycin and then discharging home with oral antibiotics. Patient should follow-up with primary care or return to the ER for worsening symptoms. I reviewed this with patient who would like to try treatment at home and felt he could use his walker for getting around in the house. Vital Signs: Vital signs: Vital Signs Temperature 97.8 F 12/08/20 23:34 Pulse Rate 68 12/08/20 23:38 Respiratory Rate 17 12/08/20 23:38 Blood Pressure 120/65 12/08/20 23:34 Pulse Oximetry 95 12/08/20 23:38 MDM - Fall MDM Narrative: Medical decision making narrative: Patient came in tonight after falling twice today. Family wanted patient to be checked out. On exam patient had some increased swelling to bilateral lower extremities with some increasing redness and tenderness. Patient does have a chronic history of swelling to bilateral lower legs. On exam pulses were intact in both dorsalis pedis. Patient has had amputations of both fifth digits on each foot. Differential diagnosis includes but not limited to sepsis, head injury, cellulitis. CT scan of the head was negative. EKG noted atrial fib which is chronic for patient in a controlled heart rate. White blood cell count was up to 10.7 from a normal 5-6. Laboratory values did note an increase in creatinine to 2.4 although patient does usually run a 1.8-2.0. Blood glucose was 63. I was concerned for cellulitis of the lower extremity with increase in white blood cell count and patient's increased weakness. I reviewed this with Dr. Romero who recommended trial antibiotic at home and then monitor and follow-up or return as needed. I reviewed this with patient who is agreeable to plan. Patient was given 1 g of vancomycin in the emergency room per IV. And patient was started on doxycycline 100 mg twice a day. Patient felt that he was able to take care of himself at home and could use his walker for ambulation. Lab Data: Labs: Lab Results 12/08/20 12/08/20 12/09/20 Range/Units 23:45 23:45 00:25 WBC 10.7 H (4.0-10.0) 10^3/ uL RBC 2.90 L (4.1-5.3) 10^6/u L Hgb 8.3 L (11.7-16.6) g/dL Hct 26.1 L (42.0-52.0) % MCV 90.0 (80-94) fL MCH 28.6 (28.0-34.0) pg MCHC 31.8 (30.0-36.0) g/dL RDW 19.5 H (12.1-15.1) % Plt Count 282 (130-400) 10^3/c mm MPV 8.9 (7.4-10.4) fL Neut % (Auto) 79.6 % Lymph % (Auto) 9.8 % O'Brien % (Auto) 9.5 % Eos % (Auto) 0.0 % Baso % (Auto) 0.6 % Neut # (Auto) 8.53 H (1.8-7.7) 10^3/u L Lymph # (Auto) 1.1 (0.8-4.8) 10^3/u L O'Brien # (Auto) 1.0 H (0.2-0.9) 10^3/u L Eos # (Auto) 0.0 (0.0-0.8) 10^3/u L Baso # (Auto) 0.1 (0.0-0.1) 10^3/u L Nucleated RBC % (a uto) 0 % Nucleated RBCs # 0.0 /100WBC Sodium 139 (136-145) mmol/L Potassium 3.5 (3.5-5.1) mmol/L Chloride 102 (98-107) mmol/L Carbon Dioxide 21 L (22-29) mmol/L Anion Gap 19.5 H (5-19) BUN 58 H (8-23) mg/dL Creatinine 2.4 H (0.7-1.2) mg/dL GFR Calculation Not Reportable Glucose 63 L (65-115) mg/dL Calculated Osmolal ity 302 H (285-295) mOsm/k g Calcium 8.3 L (8.5-10.5) mg/dL Total Bilirubin 0.6 (0.15-1.2) mg/dL AST 71 H (0-40) U/L ALT 35 (0-41) U/L Alkaline Phosphata se 193 H (40-130) IU/L Total Protein 6.7 (6.6-8.7) g/dL Albumin 2.9 L (3.5-5.2) g/dL Globulin 3.8 (1.3-4.6) g/dL Urine Color Yellow (Yellow) Urine Appearance Clear (CLEAR) Urine pH 5 (5-7) Ur Specific Gravit y 1.010 (1.005-1.030) Urine Protein 2+ H (Negative) Urine Glucose (UA) Norm (Normal) Urine Ketones Negative (Negative) Urine Blood 3+ H (Negative) Urine Nitrate Negative (Negative) Urine Bilirubin Neg (Negative) Urine Urobilinogen Norm (Negative) mg/dL Ur Leukocyte Anabela ase Negative (Negative) Urine RBC 0-4 H (0-2) /hpf Urine WBC 0-4 H (0-5) /hpf Ur Squamous Epith Cells 0-4 H (0-5) /hpf Amorphous Sediment 1+ /hpf Urine Bacteria Trace (NONE) /hpf EKG Data^: EKG 1: Attestation: I personally reviewed and interpreted this EKG as follows: (2333, EKG shows atrial fibrillation with a rate of 61 bpm, no ST elevation, no ectopy, no prior exam is available for comparison at this time.) Discharge Plan Discharge Patient Disposition: Home Clinical Impression: Cellulitis Qualifiers: Site of cellulitis: extremity Site of cellulitis of extremity: lower extremity Laterality: right Qualified Code(s): L03.115 - Cellulitis of right lower limb Condition: Stable Prescriptions: New doxycycline monohydrate 100 mg capsule 100 mg PO Q12H 10 Days Qty: 20 RF: 0 No Action metformin 1,000 mg tablet 1,000 mg PO BID RF: 0 pantoprazole 40 mg tablet,delayed release (DR/EC) 40 mg PO DAILY RF: 0 ferrous sulfate 325 mg (65 mg iron) tablet,delayed release (DR/EC) 325 mg PO DAILY RF: 0 tramadol 50 mg tablet 50 mg PO DAILY PRN (Reason: pain) Qty: 30 RF: 1 furosemide 40 mg tablet 40 mg PO DAILY 90 Days Qty: 90 RF: 3 Xarelto 15 mg tablet 15 mg PO DAILY Qty: 60 RF: 2 sulfamethoxazole-trimethoprim [Bactrim DS] 800-160 mg tablet 1 tab PO BID Qty: 14 RF: 0 sulfamethoxazole-trimethoprim [Bactrim DS] 800-160 mg tablet 1 tab PO BID Qty: 14 RF: 0 hydralazine 25 mg tablet 25 mg PO TID Qty: 90 RF: 0 atorvastatin 40 mg tablet 20 mg PO DAILY Qty: 30 RF: 0 amlodipine 10 mg Tablet 10 mg PO DAILY Qty: 30 RF: 0 Novolog U-100 Insulin aspart 100 unit/mL Solution See Rx Instructions .ROUTE .COMPLEX Qty: 10 RF: 0 Triple Antibiotic 3.5mg-400 unit- 5,000 unit/gram Ointment 1 applic topical BID Qty: 15 RF: 0 lisinopril 10 mg tablet 10 mg PO DAILY Qty: 30 RF: 0 metoprolol tartrate 50 mg Tablet 25 mg PO DAILY Qty: 0 RF: 0 Levemir FlexTouch U-100 Insuln 100 unit/mL (3 mL) insulin pen 10 unit SUBCUT DAILY Qty: 0 RF: 0 Discharge Orders: Discharge ED (Routine); Ordered 12/09/20 Ordered By: Chris Gilliland Referrals: Jose Patiño MD [Primary Care Provider] - Discharge Diet: Usual diet Discharge Activity: Increase activity as tolerated Patient Instructions: Cellulitis (ED), Opioid Safety Activity Restrictions/Additional Instructions: Elevate lower extremities. Is important try to elevate your lower extremities as much as possible when sitting. This will help with the swelling and help with the cellulitis. Continue with routine medications as directed. When up and walking always use a walker or cane for ambulation. Continue with routine care as directed otherwise. Follow-up with primary care in 1 week for recheck. Return to the emergency department for worsening symptoms. Coding Level of Care Code ED Clinical Case Manager for Omi Hernández Exam Comprehensive
--- NOTE | 2020-12-08 23:00 | CTR_ITS ---
PROCEDURE INFORMATION: Exam: CT Head Without Contrast Exam date and time: 12/08/2020 11:00 PM Age: 74 years old Clinical indication: Injury or trauma; Blunt trauma (contusions or hematomas); Patient HX: Fall. TECHNIQUE: Imaging protocol: Computed tomography of the head without contrast. Radiation optimization: All CT scans at this facility use at least one of these dose optimization techniques: automated exposure control; mA and/or kV adjustment per patient size (includes targeted exams where dose is matched to clinical indication); or iterative reconstruction. COMPARISON: No relevant prior studies available. RADIATION DOSE METRICS: Total DLP (mGy-cm): 894.3 FINDINGS: Brain: No acute intracranial hemorrhage or mass effect. There is very mild decreased attenuation in the periventricular white matter, likely from microvascular disease. No definite acute infarct by CT. Cerebral ventricles: Ventricle size is normal for age. Paranasal sinuses: Minimal mucosal thickening in the ethmoid, maxillary, and left frontal sinuses. Mastoid air cells: No significant acute finding. Vasculature: Vascular calcifications in the internal carotid and vertebral basilar systems. Bones/joints: No definite acute skull fracture. CT/CT head wo con* [id number] IMPRESSION: 1. No acute intracranial hemorrhage or mass effect. 2. Changes of microvascular disease. 3. Other findings discussed above. Radiation Dose CTDIVOL = (mGy): DLP = 894.3 (mGy-cm)
[2020-12-08 23:34] VITALS: BP 120/65; PULSE 64; RESP 18; TEMP 36.6; O2SAT 95; BMI 28.8
[2020-12-08 23:38] VITALS: PULSE 68; RESP 17; O2SAT 95
[2020-12-09 00:08] VITALS: BP 133/68; PULSE 64; RESP 18; O2SAT 94
[2020-12-09 00:19] LABS: Alanine Aminotransferase 35 U/L (0-41); Albumin Level 2.9 g/dL (3.5-5.2); Alkaline Phosphatase 193 IU/L (40-130); Anion Gap 19.5 (5-19); Aspartate Amino Transferase 71 U/L (0-40); Blood Urea Nitrogen 58 mg/dL (8-23); Calcium 8.3 mg/dL (8.5-10.5); Carbon Dioxide 21 mmol/L (22-29); Chloride 102 mmol/L (98-107); Globulin 3.8 g/dL (1.3-4.6); Glucose 63 mg/dL (65-115); Osmolality Calculated 302 mOsm/kg (285-295); Potassium 3.5 mmol/L (3.5-5.1); Sodium 139 mmol/L (136-145); Total Bilirubin 0.6 mg/dL (0.15-1.2); Total Protein 6.7 g/dL (6.6-8.7)
[2020-12-09 00:31] LABS: Basophils # 0.1 10^3/uL (0.0-0.1); Basophils % 0.6 %; Hematocrit 26.1 % (42.0-52.0); Hemoglobin 8.3 g/dL (11.7-16.6); Lymphocytes # 1.1 10^3/uL (0.8-4.8); Lymphocytes % 9.8 %; Mean Corpuscular HGB Conc 31.8 g/dL (30.0-36.0); Mean Corpuscular Hemoglobin 28.6 pg (28.0-34.0); Mean Platelet Volume 8.9 fL (7.4-10.4); Monocytes % 9.5 %; Neutrophils # 8.53 10^3/uL (1.8-7.7); Neutrophils % 79.6 %; Nucleated Red Blood Cells % 0 %; Platelet Count 282 10^3/cmm (130-400); Red Cell Distribution Width 19.5 % (12.1-15.1); White Blood Count 10.7 10^3/uL (4.0-10.0)
[2020-12-09 00:34] LABS: Add Urine Microscopic? YES; Bacteria Urine TRACE /hpf; Bilirubin Urine Neg (Negative); Blood Urine 3+ (Negative); Glucose Urine UA Norm (Normal); Ketones Urine Negative (Negative); Leukocyte Esterase Urine Negative (Negative); Nitrate Urine Negative (Negative); Protein Urine 2+ (Negative); RBC Urine 0-4 /hpf (0-2); Squamous Epithelial Cell Urine 0-4 /hpf (0-5); Urine Appearance Clear (CLEAR); Urine Color Yellow (Yellow); Urobilinogen Urine Norm (Negative); WBC Urine 0-4 /hpf (0-5); pH Urine 5 (5-7)
[2020-12-09 00:35] LABS: Amorphous Sediment Urine 1+ /hpf
[2020-12-09 00:38] VITALS: BP 140/71; PULSE 74; RESP 17; O2SAT 94
[2020-12-09] MEDS: vancomycin 1,000 MG in sodium chloride 0.9% 250 ML 250 MG IV (01:22)
[2020-12-09] MEDS: doxycycline 100 mg Tablet PO (01:22)
[2020-12-09 01:31] LABS: Lactic Sepsis W/Reflex 1.9 mmol/L (0.5-2.2)
[2020-12-09 02:00] VITALS: BP 139/76; PULSE 60; RESP 18; O2SAT 98
[2020-12-09] MEDS: ondansetron 2 mg/ML SDV 2 mL 4 MG IVP (02:48)
[2020-12-09 03:07] VITALS: BP 113/71; PULSE 70; RESP 18; O2SAT 90
--- NOTE | 2020-12-09 03:09 | PC.NURSE ---
contacted for ride home
== END 2020-12-09 03:00 | disposition home or self-care (01) ==
PROVIDERS: Emergency Provider Nurse Practitioner Family; PCP Family Medicine
DX: L03.115 Cellulitis of right lower limb (principal); Z79.4 Long term (current) use of insulin; I12.9 Hypertensive chronic kidney disease with stage 1 through stage 4 chronic kidney disease, or unspecified chronic kidney disease; E11.22 Type 2 diabetes mellitus with diabetic chronic kidney disease; N18.31 Chronic kidney disease, stage 3a; Z89.422 Acquired absence of other left toe(s)
CPT/HCPCS: 36415; 70450; 80053; 81001; 83605; 85025; 87040; 96365; 96375; 99284; J2405; J3370; J7050

== ENCOUNTER 2020-12-12 14:04 | Outpatient (CLI) | payer MEDICARE, SELFPAY | END 2020-12-12 14:05 | disposition home or self-care (01) | LOC: WOUND 14:05 | PROVIDERS: PCP Family Medicine; Visit Provider Nurse Practitioner Family | DX: T81.31XA Disruption of external operation (surgical) wound, not elsewhere classified, initial encounter (principal); Y83.8 Other surgical procedures as the cause of abnormal reaction of the patient, or of later complication, without mention of misadventure at the time of the procedure; Z89.421 Acquired absence of other right toe(s) | CPT/HCPCS: 11042 ==

== ENCOUNTER 2020-12-19 15:04 | Outpatient (CLI) | payer MEDICARE, SELFPAY | END 2020-12-19 15:05 | disposition home or self-care (01) | LOC: WOUND 15:06 | PROVIDERS: PCP Family Medicine; Visit Provider Nurse Practitioner Family | DX: T81.31XA Disruption of external operation (surgical) wound, not elsewhere classified, initial encounter (principal); Y83.8 Other surgical procedures as the cause of abnormal reaction of the patient, or of later complication, without mention of misadventure at the time of the procedure; Z89.421 Acquired absence of other right toe(s) | CPT/HCPCS: 11042 ==

== ENCOUNTER 2021-01-02 10:25 | Outpatient (CLI) | payer MEDICARE, SELFPAY | END 2021-01-02 10:26 | disposition home or self-care (01) | LOC: WOUND 10:27 | PROVIDERS: PCP Family Medicine; Visit Provider Thoracic Surgery (Cardiothoracic Vascular Surgery) | DX: T81.31XA Disruption of external operation (surgical) wound, not elsewhere classified, initial encounter (principal); Y83.8 Other surgical procedures as the cause of abnormal reaction of the patient, or of later complication, without mention of misadventure at the time of the procedure; Z89.421 Acquired absence of other right toe(s) | CPT/HCPCS: 97597 ==

== ENCOUNTER → 2021-01-03 13:13 | Outpatient (BNVA) | payer MEDICARE, SELFPAY | PROVIDERS: PCP Family Medicine; Visit Provider Family Medicine | DX: D64.9 Anemia, unspecified (principal); N18.31 Chronic kidney disease, stage 3a; I87.2 Venous insufficiency (chronic) (peripheral); I48.19 Other persistent atrial fibrillation; E11.52 Type 2 diabetes mellitus with diabetic peripheral angiopathy with gangrene; Z79.4 Long term (current) use of insulin; D50.8 Other iron deficiency anemias | CPT/HCPCS: 85018 ==

== ENCOUNTER → 2021-01-30 11:21 | Outpatient (BNVA) | payer MEDICARE, SELFPAY | PROVIDERS: PCP Family Medicine; Visit Provider Family Medicine | DX: D50.8 Other iron deficiency anemias (principal); E11.52 Type 2 diabetes mellitus with diabetic peripheral angiopathy with gangrene; N18.31 Chronic kidney disease, stage 3a; Z79.4 Long term (current) use of insulin; I48.19 Other persistent atrial fibrillation; I10 Essential (primary) hypertension; I87.2 Venous insufficiency (chronic) (peripheral) | CPT/HCPCS: 80048; 83036; 85025 ==

== ENCOUNTER → 2021-02-21 10:40 | Outpatient (BNVA) | payer MEDICARE, SELFPAY | PROVIDERS: PCP Family Medicine; Visit Provider Family Medicine | DX: N18.31 Chronic kidney disease, stage 3a (principal); F03.90 Unspecified dementia, unspecified severity, without behavioral disturbance, psychotic disturbance, mood disturbance, and anxiety | CPT/HCPCS: 80048; 84439; 84443 ==

== ENCOUNTER → 2021-03-08 11:56 | Outpatient (BNVA) | payer MEDICARE, SELFPAY | PROVIDERS: PCP Family Medicine; Visit Provider Family Medicine | DX: I12.9 Hypertensive chronic kidney disease with stage 1 through stage 4 chronic kidney disease, or unspecified chronic kidney disease (principal); N18.31 Chronic kidney disease, stage 3a | CPT/HCPCS: 80048; 82043 ==

== ENCOUNTER → 2021-04-07 13:25 | Outpatient (BNVA) | payer MEDICARE, SELFPAY | PROVIDERS: PCP Family Medicine; Referring Provider Family Medicine; Visit Provider Nurse Practitioner | DX: F03.90 Unspecified dementia, unspecified severity, without behavioral disturbance, psychotic disturbance, mood disturbance, and anxiety (principal) | CPT/HCPCS: 99204 ==

== ENCOUNTER → 2021-05-23 11:22 | Outpatient (BNVA) | payer MEDICARE, SELFPAY | PROVIDERS: PCP Family Medicine; Visit Provider Family Medicine | DX: N18.31 Chronic kidney disease, stage 3a (principal) | CPT/HCPCS: 80069; 82306; 82310; 82340; 83970; 85025 ==

== ENCOUNTER 2021-07-10 11:56 | Inpatient (IN) | payer MEDICARE, MEDICAID, SELFPAY ==
[2021-07-10 12:18] VITALS: BP 98/56; PULSE 80; RESP 16; TEMP 36.7; O2SAT 97
--- NOTE | 2021-07-10 12:54 | XR_ITS ---
WS: [id number] Exam: XR chest 1V portable [id number] Date/Time of Exam: 07/10/2021 1:53 PM Reason For Exam: infection Comparison 10/28/2020. The lungs are fully expanded and clear. Cardiomediastinal silhouette is unremarkable for technique. N o pleural effusions. Regional bony structures appear normal. Scattered calcified pulmonary granulomas . XR/XR chest 1V portable [id number] IMPRESSION: 1. No acute cardiopulmonary finding.
--- NOTE | 2021-07-10 13:30 | ED_ITS ---
HPI - Wound/Laceration General: Chief Complaint: Wound/Laceration Stated Complaint: Diabetic wounds History of Present Illness: HPI narrative: Patient complains of foot problems sent by Dr. Patiño.. Patient is in no distress answers questions appropriately. Is sitting in wheelchair. [facility] ED PFSH: Medical History Anemia Atrial fibrillation Chronic kidney disease (CKD) stage G3a/A1, moderately decreased glomerular filtration rate (GFR) between 45-59 mL/min/1.73 square meter and albuminuria creatinine ratio less than 30 mg/g Diabetes Gangrene of toe of right foot GERD (gastroesophageal reflux disease) History of abdominal hernia Hypercholesteremia Hypertension Type 2 diabetes mellitus Venous insufficiency of both lower extremities Surgical History Amputation of fifth toe of left foot History of amputation of toe History of appendectomy History of foot surgery Family History Other Stroke Social History Smoking and tobacco status: never smoked Alcohol intake: never Course Vital Signs: Vital signs: Vital Signs Temperature 98.0 F 07/10/21 12:18 Pulse Rate 80 07/10/21 12:18 Respiratory Rate 16 07/10/21 12:18 Blood Pressure 98/56 07/10/21 12:18 Pulse Oximetry 97 07/10/21 12:18 MDM - Wound/Laceration MDM Narrative: Medical decision making narrative: Brief history and physical exam was performed as part of the triage process. Due to current ED wait time patient will be placed in waiting room until a room becomes available. Explained to patient he/she will be seen in order of severity. Patient is currently safe to wait in the waiting room until we can get them placed. Patient informed that if condition worsens at any time to please let the front desk specialist know. Discharge Plan Discharge Prescriptions: No Action pantoprazole 40 mg tablet,delayed release (DR/EC) 40 mg PO DAILY RF: 0 ferrous sulfate 325 mg (65 mg iron) tablet,delayed release (DR/EC) 325 mg PO DAILY RF: 0 lisinopril 20 mg tablet 20 mg PO DAILY RF: 0 metolazone 5 mg tablet 5 mg PO DAILY PRNRF: 0 galantamine 8 mg capsule,ext rel. pellets 24 hr 8 mg PO QAM Qty: 30 RF: 0 galantamine 24 mg capsule,ext rel. pellets 24 hr 24 mg PO QAM Qty: 30 RF: 2 furosemide 40 mg tablet 40 mg PO BID 90 Days Qty: 180 RF: 3 atorvastatin 20 mg tablet 20 mg PO DAILY Qty: 90 RF: 1 tramadol 50 mg tablet 50 mg PO DAILY PRN (Reason: pain) Qty: 30 RF: 3 Novolog U-100 Insulin aspart 100 unit/mL solution 2 unit SUBCUT TID 90 Days Qty: 5.4 RF: 3 Xarelto 15 mg tablet See Rx Instructions .ROUTE .COMPLEX Qty: 60 RF: 3 metformin 1,000 mg tablet 500 mg PO BID Qty: 90 RF: 1 hydralazine 25 mg tablet See Rx Instructions .ROUTE .COMPLEX Qty: 90 RF: 2 citalopram 20 mg tablet See Rx Instructions .ROUTE .COMPLEX Qty: 30 RF: 1 galantamine 16 mg capsule,ext rel. pellets 24 hr See Rx Instructions .ROUTE .COMPLEX Qty: 30 RF: 0 metolazone 5 mg tablet See Rx Instructions .ROUTE .COMPLEX Qty: 30 RF: 1 Triple Antibiotic 3.5mg-400 unit- 5,000 unit/gram Ointment 1 applic topical BID Qty: 15 RF: 0 Levemir FlexTouch U-100 Insuln 100 unit/mL (3 mL) insulin pen 10 unit SUBCUT DAILY Qty: 0 RF: 0 Coding Level of Care Code ED Game Technician for Omi Hernández
[2021-07-10 14:14] LABS: Basophils % 0.2 %; Eosinophils # 0.1 10^3/uL (0.0-0.8); Eosinophils % 0.4 %; Hematocrit 27.2 % (42.0-52.0); Lymphocytes # 0.5 10^3/uL (0.8-4.8); Lymphocytes % 3.3 %; Mean Corpuscular HGB Conc 29.4 g/dL (30.0-36.0); Mean Corpuscular Hemoglobin 25.7 pg (28.0-34.0); Mean Corpuscular Volume 87.5 fl (80-94); Mean Platelet Volume 8.8 fL (7.4-10.4); Monocytes # 0.7 10^3/uL (0.2-0.9); Monocytes % 4.5 %; Neutrophils # 14.06 10^3/uL (1.8-7.7); Nucleated Red Blood Cells % 0 %; Platelet Count 288 10^3/cmm (130-400); Red Blood Count 3.11 10^6/uL (4.1-5.3); Red Cell Distribution Width 17.6 % (12.1-15.1); White Blood Count 15.4 10^3/uL (4.0-10.0)
[2021-07-10 14:39] LABS: Lactate (Lactic Acid level) 1.5 mmol/L (0.5-2.2)
[2021-07-10 14:40] LABS: Alanine Aminotransferase 99 U/L (0-41); Albumin Level 2.5 g/dL (3.5-5.2); Alkaline Phosphatase 388 IU/L (40-130); Anion Gap 18.8 (5-19); Aspartate Amino Transferase 77 U/L (0-40); Calcium 8.2 mg/dL (8.5-10.5); Carbon Dioxide 21 mmol/L (22-29); Chloride 101 mmol/L (98-107); Globulin 4.5 g/dL (1.3-4.6); Glucose 56 mg/dL (65-115); Osmolality Calculated 312 mOsm/kg (285-295); Potassium 3.8 mmol/L (3.5-5.1); Sodium 137 mmol/L (136-145); Total Bilirubin 0.3 mg/dL (0.15-1.2)
[2021-07-10 14:42] LABS: INR 2.06 (0.8-1.2)
[2021-07-10 14:52] LABS: Blood Urea Nitrogen 98 mg/dL (8-23)
[2021-07-10 15:21] VITALS: BP 113/60; PULSE 81; RESP 14; TEMP 36.4; O2SAT 97
--- NOTE | 2021-07-10 18:54 | XRR_ITS ---
PROCEDURE INFORMATION: Exam: XR Left Foot Exam date and time: 07/10/2021 6:54 PM Age: 75 years old Clinical indication: Other: Diabetic ulcer; Additional info: Pain TECHNIQUE: Imaging protocol: XR Left foot. Views: 3 or more views. COMPARISON: [place] [id number] 10/28/2020 4:24 PM FINDINGS: Bones/joints: Post amputation changes to the level of the distal 5th metatarsal. No acute cortical erosive changes are seen or irregular intramedullary lucencies. Soft tissues: Wound along the medial plantar aspect of the forefoot surrounding the 1st MTP. XR/XR foot LT min 3V* [id number] IMPRESSION: No evidence of acute osteomyelitis.
--- NOTE | 2021-07-10 19:10 | ED_ITS ---
HPI - Wound/Laceration General: Chief Complaint: Wound/Laceration Stated Complaint: Diabetic wounds Time Seen by Provider: 07/10/21 18:48 Source: patient Mode of arrival: ambulatory Limitations: no limitations History of Present Illness: HPI narrative: 75-year-old male has a history of diabetes along with poor circulation to his legs and chronic wounds. States has been having a necrotic wound is been foul-smelling is been going on for months but has been refusing to come up to see a PCP. He did agree to see his PCP Dr. Patiño who is sent him here he denies any fevers denies any worsening improving factors. Associated symptoms: Denies chills, fever(s), nausea or vomiting Review of Systems Const: Denies: fever(s), chills, body aches or change in appetite Eyes: Denies: blurry vision or eye discomfort ENMT: Denies: throat pain or dental pain Card: Denies: chest pain Resp: Denies: dyspnea GI: Denies: abdominal pain, nausea, vomiting or diarrhea : Denies: dysuria Musc: Denies: neck pain or back pain Skin/Breast: Denies: rash Neuro: Denies: headache(s) Psych: Denies: depression Devonte/Lymph: Denies: easy bruising All/Imm: Denies: urticaria PFSH ED PFSH: Medical History Anemia Atrial fibrillation Chronic kidney disease (CKD) stage G3a/A1, moderately decreased glomerular filtration rate (GFR) between 45-59 mL/min/1.73 square meter and albuminuria creatinine ratio less than 30 mg/g Diabetes Gangrene of toe of right foot GERD (gastroesophageal reflux disease) History of abdominal hernia Hypercholesteremia Hypertension Type 2 diabetes mellitus Venous insufficiency of both lower extremities Surgical History Amputation of fifth toe of left foot History of amputation of toe History of appendectomy History of foot surgery Family History Other Stroke Social History Smoking and tobacco status: never smoked Alcohol intake: never Physical Exam Const: COMMON NORMALS: no acute distress, patient oriented x3 and healthy appearing HENMT: COMMON NORMALS: normocephalic and atraumatic HEAD & SCALP: normocephalic and atraumatic Eye: COMMON NORMALS: Equal, round and reactive pupils present and EOMs intact bilaterally PUPIL: Yes Equal, round and reactive pupils present Neck/C-Spine: COMMON NORMALS: full ROM and supple Chest: COMMONS NORMALS: normal inspection of the chest and normal palpation of entire chest wall Resp: COMMON NORMALS: normal respiratory effort, No retractions, No use of accessory muscles and clear to auscultation bilaterally AUSCULTATION: clear to auscultation bilaterally Cardio: COMMON NORMALS: regular rate, regular rhythm and No murmurs present (Cardio) RATE: regular rate RHYTHM: regular rhythm GI: COMMON NORMALS: Normal to inspection, nondistended, normoactive bowel sounds present, Soft to palpation, non-tender and no masses PALPATION: Yes Soft to palpation Extremity: COMMON NORMALS: full ROM NARRATIVE EXTREMITY EXAM: Large necrotic ulcer to left distal foot foul-smelling odor erythema to the foot as well. Neuro: COMMON NORMALS: patient oriented x3, moves all extremities and no focal motor deficits Psych: COMMON NORMALS: mental status grossly normal, Normal thought process present and cooperative THOUGHT PROCESS: Normal thought process present Skin: COMMON NORMALS: no rashes or lesions noted and no wounds GENERAL SKIN EXAM: no rashes or lesions noted Course Vital Signs: Vital signs: Vital Signs Temperature 97.9 F 07/10/21 19:30 Pulse Rate 83 07/10/21 19:30 Respiratory Rate 20 H 07/10/21 19:30 Blood Pressure 125/61 07/10/21 19:30 Pulse Oximetry 98 07/10/21 19:30 MDM - Wound/Laceration MDM Narrative: Medical decision making narrative: Patient presents here with wound to the left foot that is now chronic in nature. Will start him on IV antibiotics spoke to hospitalist will admit also spoke to orthopedic surgeon who is consulted. Patient's vital signs here been stable. Lab Data: Labs: Lab Results 07/10/21 07/10/21 07/10/21 13:57 13:57 13:57 WBC 15.4 10^3/uL H 10 ^3/uL (4.0-10.0) RBC 3.11 10^6/uL L 10 ^6/uL (4.1-5.3) Hgb 8.0 g/dL L g/dL (11.7-16.6) Hct 27.2 % L % (42.0-52.0) MCV 87.5 fl fl (80-94) MCH 25.7 pg L pg (28.0-34.0) MCHC 29.4 g/dL L g/dL (30.0-36.0) RDW 17.6 % H % (12.1-15.1) Plt Count 288 10^3/cmm 10^3 /cmm (130-400) MPV 8.8 fL fL (7.4-10.4) Neut % (Auto) 91.0 % % Lymph % (Auto) 3.3 % % Butler % (Auto) 4.5 % % Eos % (Auto) 0.4 % % Baso % (Auto) 0.2 % % Neut # (Auto) 14.06 10^3/uL H 1 0^3/uL (1.8-7.7) Lymph # (Auto) 0.5 10^3/uL L 10^ 3/uL (0.8-4.8) Butler # (Auto) 0.7 10^3/uL 10^3/ uL (0.2-0.9) Eos # (Auto) 0.1 10^3/uL 10^3/ uL (0.0-0.8) Baso # (Auto) 0.0 10^3/uL 10^3/ uL (0.0-0.1) Nucleated RBC % (a uto) 0 % % Nucleated RBCs # 0.0 /100WBC /100W BC PT 23.60 SECONDS H S ECONDS (12.1-14.9) INR 2.06 H (0.8-1.2) Sodium 137 mmol/L mmol/L (136-145) Potassium 3.8 mmol/L mmol/L (3.5-5.1) Chloride 101 mmol/L mmol/L (98-107) Carbon Dioxide 21 mmol/L L mmol/ L (22-29) Anion Gap 18.8 (5-19) BUN 98 mg/dL H* mg/dL (8-23) Creatinine 2.8 mg/dL H mg/dL (0.7-1.2) GFR Calculation Not Reportable Glucose 56 mg/dL L mg/dL (65-115) Calculated Osmolal ity 312 mOsm/kg H mOs m/kg (285-295) Lactate Calcium 8.2 mg/dL L mg/dL (8.5-10.5) Total Bilirubin 0.3 mg/dL mg/dL (0.15-1.2) AST 77 U/L H U/L (0-40) ALT 99 U/L H U/L (0-41) Alkaline Phosphata se 388 IU/L H IU/L (40-130) Total Protein 7.0 g/dL g/dL (6.6-8.7) Albumin 2.5 g/dL L g/dL (3.5-5.2) Globulin 4.5 g/dL g/dL (1.3-4.6) Urine Color Urine Appearance Urine pH Ur Specific Gravit y Urine Protein Urine Glucose (UA) Urine Ketones Urine Blood Urine Nitrate Urine Bilirubin Urine Urobilinogen Ur Leukocyte Anabela ase 07/10/21 07/10/21 13:57 19:50 WBC RBC Hgb Hct MCV MCH MCHC RDW Plt Count MPV Neut % (Auto) Lymph % (Auto) Butler % (Auto) Eos % (Auto) Baso % (Auto) Neut # (Auto) Lymph # (Auto) Butler # (Auto) Eos # (Auto) Baso # (Auto) Nucleated RBC % (a uto) Nucleated RBCs # PT INR Sodium Potassium Chloride Carbon Dioxide Anion Gap BUN Creatinine GFR Calculation Glucose Calculated Osmolal ity Lactate 1.5 mmol/L mmol/L (0.5-2.2) Calcium Total Bilirubin AST ALT Alkaline Phosphata se Total Protein Albumin Globulin Urine Color Yellow (Yellow) Urine Appearance Clear (CLEAR) Urine pH 5 (5-7) Ur Specific Gravit y 1.010 (1.005-1.030) Urine Protein Neg (Negative) Urine Glucose (UA) Norm (Normal) Urine Ketones Negative (Negative) Urine Blood Neg (Negative) Urine Nitrate Negative (Negative) Urine Bilirubin Neg (Negative) Urine Urobilinogen Norm mg/dL mg/dL (Negative) Ur Leukocyte Anabela ase Negative (Negative) Discharge Plan Discharge Patient Disposition: Admitted As Inpatient Clinical Impression: Ulcer of left foot Qualifiers: Non-pressure ulcer stage: with other severity Qualified Code(s): L97.528 - 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
[2021-07-10 19:30] VITALS: BP 125/61; PULSE 83; RESP 20; TEMP 36.6; O2SAT 98
[2021-07-10] MEDS: vancomycin 1,000 MG in sodium chloride 0.9% 250 ML 250 MG IV (19:30)
[2021-07-10 19:55] LABS: Add Urine Microscopic? NO; Charge for UA Resulting for Rev
[2021-07-10 20:07] LABS: Bilirubin Urine Neg (Negative); Blood Urine Neg (Negative); Glucose Urine UA Norm (Normal); Ketones Urine Negative (Negative); Leukocyte Esterase Urine Negative (Negative); Nitrate Urine Negative (Negative); Protein Urine Neg (Negative); Urine Appearance Clear (CLEAR); Urine Color Yellow (Yellow); Urobilinogen Urine Norm (Negative); pH Urine 5 (5-7)
--- NOTE | 2021-07-10 21:05 | ECG_ITS ---
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 Measurements Intervals [place] Rate: 72 P: AR: QRS: 64 QRSD: 97 T: 66 QT: 401 QTc: 439 Interpretive Statements ATRIAL FIBRILLATION NONSPECIFIC T-WAVE ABNORMALITY ABNORMAL RHYTHM ECG Compared to ECG 10/28/2020 14:31:12 No significant changes Electronically Signed On 07-13-2021 19:32:40 SKIN PILER by Marely Davalos M.D. [id number]
--- NOTE | 2021-07-10 21:17 | PM.HP ---
Providers/Chief Complaint Primary Care Provider: Jose Patiño MD Chief Complaint: Diabetic wounds History of Present Illness Lazara Cleary is a 75 year old male with past medical history of, hypertension , diabetes, CKD ) stage G3a/A1, atrial fibrillation on Xarelto,HFpEF, Venous insufficiency of both lower extremities, Gangrene of toe of right foot, came in from home after worsening left lower extremity ulcer, according to her who is a nurse he has a history of chronic bilateral lower extremity ulcer, initially he used to follow Dr. Reynoso in wound care clinic, but has not seen him in the last 6 months, as the was taking care of his chronic B/L lower extremity wounds, today she brought her to the hospital As advised by the primary care physician, because he recently developed left great toe wound according to the it started on last and has progressively gotten worsened, currently it has a large necrotic base.Patient also had an episode of fever at home last . Upon arrival in the ER he was worked up for above-mentioned complaints: Pertinent imaging studies XR foot LT: Post amputation changes to the level of the distal 5th metatarsal. No acute cortical erosive changes are seen or irregular intramedullary lucencies. Soft tissues: Wound along the medial plantar aspect of the forefoot surrounding the 1st MTP. No evidence of acute osteomyelitis. Pertinent labs: WBC 15.4 , H&H : 02/17 , PLT : 288 , PT INR : 23/2.06 , lactic acid 1.6 Serum sodium 137 serum potassium 3.8, BUN / serum creatinine : 98 / 2.8 , Patient was given a dose of vancomycin in the ER Review of Systems Const: Denies: chills, body aches, change in appetite or diaphoresis Card: Denies: palpitations Resp: Denies: dyspnea, productive cough, wheezing or pain on inspiration GI: Denies: abdominal pain, vomiting, diarrhea or constipation : Denies: flank pain or difficulty urinating Musc: Denies: back pain, extremity pain or extremity swelling Neuro: Denies: headache(s), difficulty walking or confusion Medications/Allergies Home Medications Medication Instructions Recorded Confirmed Last Taken Type ferrous sulfate 325 mg (65 mg 325 mg PO DAILY 10/04/20 05/23/21 10/28/20 History iron) tablet,delayed release pantoprazole 40 mg tablet,delayed 40 mg PO DAILY 10/04/20 05/23/21 10/28/20 History release Levemir FlexTouch U-100 Insuln 10 unit SUBCUT DAILY #0 ml 11/01/20 05/23/21 10/28/20 Rx [id number] 1 applic TOPICAL BID #15 g 11/01/20 05/23/21 Unknown Rx [Triple Antibiotic] furosemide 40 mg tablet 40 mg PO BID 90 Days #180 tab 02/22/21 05/23/21 Unknown Rx atorvastatin 20 mg tablet 20 mg PO DAILY #90 tab 03/01/21 05/23/21 Unknown Rx tramadol 50 mg tablet 50 mg PO DAILY PRN #30 tab 03/29/21 05/23/21 Unknown Rx galantamine 24 mg 24 hr 24 mg PO QAM #30 cap 04/07/21 05/23/21 Unknown Rx capsule,extended release galantamine 8 mg 24 hr 8 mg PO QAM #30 cap 04/07/21 05/23/21 Unknown Rx capsule,extended release lisinopril 20 mg tablet 20 mg PO DAILY 04/07/21 05/23/21 Unknown History metolazone 5 mg tablet 5 mg PO DAILY PRN 04/07/21 05/23/21 Unknown History insulin aspart U-100 100 unit/mL 2 unit SUBCUT TID 90 Days #5.4 ml 05/04/21 05/23/21 Unknown Rx subcutaneous solution rivaroxaban 15 mg tablet See Rx Instructions .ROUTE 05/10/21 05/23/21 Unknown Rx .COMPLEX #60 tab metformin 1,000 mg tablet 500 mg PO BID #90 tab 05/15/21 05/23/21 Unknown Rx hydralazine 25 mg tablet See Rx Instructions .ROUTE 05/25/21 Unknown Rx .COMPLEX #90 tab citalopram 20 mg tablet See Rx Instructions .ROUTE 05/29/21 Unknown Rx .COMPLEX #30 tab galantamine 16 mg 24 hr See Rx Instructions .ROUTE 06/28/21 Unknown Rx capsule,extended release .COMPLEX #30 cap metolazone 5 mg tablet See Rx Instructions .ROUTE 06/28/21 Unknown Rx .COMPLEX #30 tab Allergies Allergy/AdvReac Type Severity Reaction Status Date / Time No Known Allergies Allergy Verified 07/10/21 12:20 PFSH Acute PFSH: Medical History (Updated 07/10/21 @ 21:22 by Julio C Owens MD) Anemia Atrial fibrillation Chronic kidney disease (CKD) stage G3a/A1, moderately decreased glomerular filtration rate (GFR) between 45-59 mL/min/1.73 square meter and albuminuria creatinine ratio less than 30 mg/g Diabetes Gangrene of toe of right foot GERD (gastroesophageal reflux disease) History of abdominal hernia Hypercholesteremia Hypertension Sepsis Type 2 diabetes mellitus Venous insufficiency of both lower extremities Surgical History Amputation of fifth toe of left foot History of amputation of toe History of appendectomy History of foot surgery Family History Other Stroke Social History Smoking and tobacco status: never smoked Alcohol intake: never Vitals/I&O/Wt Last Vital Signs Temp 97.9 F 07/10/21 19:30 Pulse 83 07/10/21 19:30 Resp 20 H 07/10/21 19:30 BP 125/61 07/10/21 19:30 Pulse Ox 98 07/10/21 19:30 07/10/21 07/10/21 07/10/21 06:59 14:59 22:59 Intake Total 250 / 250 Balance 250 / 250 Weight last 48 hrs Weight 84.368 kg Physical Exam Const: COMMON NORMALS: patient oriented x3 HENMT: COMMON NORMALS: normocephalic and atraumatic HEAD & SCALP: normocephalic and atraumatic Resp: COMMON NORMALS: normal respiratory effort and clear to auscultation bilaterally EFFORT & INSPECTION: Yes symmetric chest movement AUSCULTATION: clear to auscultation bilaterally Cardio: COMMON NORMALS: No gallops present (Cardio), No murmurs present (Cardio) and Peripheral pulses 2+ throughout PERIPHERAL PULSES: Peripheral pulses 2+ throughout OTHER: Irregularly irregular rhythm, S1, S2 of variable intensity GI: COMMON NORMALS: Normal to inspection, nondistended, normoactive bowel sounds present, Soft to palpation, non-tender, No hepatosplenomegaly present and no masses AUSCULTATION: Yes normoactive bowel sounds PALPATION: Yes Soft to palpation and Yes No hepatosplenomegaly present RECTAL EXAM: Yes deferred Extremity: NARRATIVE EXTREMITY EXAM: Left great toe base extensive necrotic wound present, Large necrotic ulcer to left distal foot foul-smelling odor erythema to the foot as well. Right lower extremity ulcer prsent Neuro: COMMON NORMALS: patient oriented x3 Data : 07/10/21 13:57 07/10/21 13:57 Micro: Microbiology 07/10/21 19:30 Blood Culture - Preliminary Blood SPECIMEN COLLECTED 07/10/21 19:25 Blood Culture - Preliminary Blood SPECIMEN COLLECTED A&P Assessment and plan (1) Ulcer of left foot: Status: Acute Qualifiers: Non-pressure ulcer stage: with other severity Qualified Code(s): L97.528 - Non-pressure chronic ulcer of other part of left foot with other specified severity (2) Venous stasis ulcers of both lower extremities: Status: Acute (3) Atrial fibrillation: Status: Acute Qualifiers: Atrial fibrillation type: persistent (not longstanding) Qualified Code(s): I48.19 - Other persistent atrial fibrillation (4) Venous insufficiency of both lower extremities: Status: Acute (5) Chronic kidney disease (CKD) stage G3a/A1, moderately decreased glomerular filtration rate (GFR) between 45-59 mL/min/1.73 square meter and albuminuria creatinine ratio less than 30 mg/g: Status: Acute (6) Hypertension: Status: Acute Qualifiers: Hypertension type: essential hypertension Qualified Code(s): I10 - Essential (primary) hypertension (7) Type 2 diabetes mellitus: Status: Acute Qualifiers: Diabetes mellitus complication detail: with peripheral angiopathy with gangrene Diabetes mellitus complication status: with circulatory complication Diabetes mellitus computer terminal operator insulin use: with computer terminal operator use Qualified Code(s): E11.52 - Type 2 diabetes mellitus with diabetic peripheral angiopathy with gangrene; Z79.4 - computer terminal operator (current) use of insulin (8) Sepsis: Status: Acute Additional A&P Information Lazara Cleary is a 75 year old male with past medical history of, hypertension , diabetes, CKD ) stage G3a/A1, atrial fibrillation on Xarelto,HFpEF, Venous insufficiency of both lower extremities, Gangrene of toe of right foot, came in from home after worsening left lower extremity ulcer, according to her who is a nurse he has a history of chronic bilateral lower extremity ulcer, initially he used to follow Dr. Reynoso in wound care clinic, but has not seen him in the last 6 months, as the was taking care of his chronic B/L lower extremity wounds, today she brought her to the hospital As advised by the primary care physician, because he recently developed left great toe wound according to the it started on last and has progressively gotten worsened, currently it has a large necrotic base.Patient also had an episode of fever at home last . #Sepsis secondary to bilateral lower extremity wound (left great toe base necrotic gangrene ) Patient has H/O fever at home , elevated WBC, extensive lower extremity wound. Follow-up blood culture. Follow Procalcitonin Continue Vanco and Zosyn for now Orthopedic surgery has been consulted for possible amputation N.p.o. #History of atrial fibrillation: Currently rate is well controlled EKG Xarelto on hold #TANIKA on CKD stage III: Likely prerenal TANIKA, possibly complicated by sepsis Currently serum creatinine: 2.8 Baseline serum creatinine: 1.7-2 IV hydration with NS Monitor BMP Intake output charting #Diabetes: SSI Monitor fingerstick glucose #Hypertension: Blood pressure currently been controlled #CODE STATUS: Full code #DVT prophylaxis: On heparin Attestations Medical Necessity Statement*: Patient needs to be in hospital for management of sepsis and extensive bilateral lower extremity wound. Anticipated length of stay greater than 2 midnights. Coding Level of Care Code Acute Manager [employer] for [facility] Fw Exam Detailed Diagnoses Ulcer of left foot L97.528 Non-pressure ulcer stage: with other severity Venous stasis ulcers of both lower extremities I83.019; I83.029; L97.919; L97.929 Atrial fibrillation I48.19 Atrial fibrillation type: persistent (not longstanding) Venous insufficiency of both lower extremities I87.2 Chronic kidney disease (CKD) stage G3a/A1, moderately decreased glomerular filtration rate (GFR) between 45-59 mL/min/1.73 square meter and albuminuria creatinine ratio less than 30 mg/g N18.31 Hypertension I10 Hypertension type: essential hypertension Type 2 diabetes mellitus E11.52; Z79.4 Diabetes mellitus complication detail: with peripheral angiopathy with gangrene Diabetes mellitus complication status: with circulatory complication Diabetes mellitus nursing home insulin use: with computer terminal operator use Sepsis A41.9
[2021-07-10] MEDS: piperacillin-tazobactam 3.375 GM in sodium chloride 0.9% (plus) 50 ML IV (21:36)
--- NOTE | 2021-07-10 21:40 | PC.PHAR ---
Vancomycin is dosed at 750mg IVPB every 24 hours to produce a predicted trough level of 14.90 (population based pharmacokinetic analysis). A trough level has been ordered from the lab to be obtained before the fourth dose to confirm and adjust if needed.
[2021-07-10 21:44] LABS: Glucose Point of Care 101 mg/dL (70-110)
[2021-07-10] MEDS: dextrose 5%-sod chloride 0.9% 1,000 ML 75 ML IV (22:20)
[2021-07-10 23:08] VITALS: BP 145/61; PULSE 72; RESP 17; TEMP 37.2; O2SAT 98
[2021-07-10 23:56] VITALS: BMI 25.0
[2021-07-11] VITALS (22 sets, daily range): BP systolic 88–154; BP diastolic 51–77; PULSE 49–81; RESP 15–18; TEMP 36.1–36.8; O2SAT 90–100
[2021-07-11 06:44] LABS: Glucose Point of Care 144 mg/dL (70-110)
[2021-07-11 07:26] LABS: Basophils % 0.2 %; Eosinophils # 0.1 10^3/uL (0.0-0.8); Eosinophils % 0.9 %; Hematocrit 25.6 % (42.0-52.0); Hemoglobin 7.6 g/dL (11.7-16.6); Lymphocytes # 0.7 10^3/uL (0.8-4.8); Lymphocytes % 5.5 %; Mean Corpuscular HGB Conc 29.7 g/dL (30.0-36.0); Mean Corpuscular Hemoglobin 25.5 pg (28.0-34.0); Mean Corpuscular Volume 85.9 fl (80-94); Mean Platelet Volume 8.9 fL (7.4-10.4); Monocytes # 0.5 10^3/uL (0.2-0.9); Monocytes % 3.7 %; Neutrophils # 10.71 10^3/uL (1.8-7.7); Nucleated Red Blood Cells % 0 %; Platelet Count 285 10^3/cmm (130-400); Red Blood Count 2.98 10^6/uL (4.1-5.3); Red Cell Distribution Width 17.6 % (12.1-15.1)
[2021-07-11 07:47] LABS: Erythrocyte Sedimentation Rate 67 mm/hr (0-10)
[2021-07-11 07:53] LABS: C Reactive Protein 223.2 mg/L (0.0-4.9)
[2021-07-11 07:57] LABS: Anion Gap 18.9 (5-19); Carbon Dioxide 22 mmol/L (22-29); Chloride 105 mmol/L (98-107); Glucose 113 mg/dL (65-115); Osmolality Calculated 326 mOsm/kg (285-295); Potassium 3.9 mmol/L (3.5-5.1); Sodium 142 mmol/L (136-145)
[2021-07-11 08:00] LABS: Procalcitonin 0.71 ng/mL (0-0.5)
--- NOTE | 2021-07-11 08:30 | PM.CONSULT ---
Providers/Reason For Consult Consulting Physician/Specialty*: Presley Mensah MD; orthopedic surgery Reason for Consult*: Gangrene left foot Attending Physician: Juliano David MD Primary Care Provider: Jose Patiño MD History of Present Illness History of Present Illness Lazara Cleary is a 75 year old male with multiple comorbidities including diabetes, chronic kidney disease, and venous stasis who presented to the ER from home after worsening of a ulcer in his left lower extremity. In the past he has been under the care of Dr. Reynoso in wound clinic but has not seen him in 6 months. He describes progressive gangrene over the plantar medial foot. There is a episode of fever at home last . He gives a history of previous amputations on his lateral foot he states years ago which went on to heal. Medications/Allergies Home Medications Medication Instructions Recorded Confirmed Last Taken Type ferrous sulfate 325 mg (65 mg 325 mg PO DAILY 10/04/20 05/23/21 10/28/20 History iron) tablet,delayed release pantoprazole 40 mg tablet,delayed 40 mg PO DAILY 10/04/20 05/23/21 10/28/20 History release Levemir FlexTouch U-100 Insuln 10 unit SUBCUT DAILY #0 ml 11/01/20 05/23/21 10/28/20 Rx [id number]-[id number]-[id number] 1 applic TOPICAL BID #15 g 11/01/20 05/23/21 Unknown Rx [Triple Antibiotic] furosemide 40 mg tablet 40 mg PO BID 90 Days #180 tab 02/22/21 05/23/21 Unknown Rx atorvastatin 20 mg tablet 20 mg PO DAILY #90 tab 03/01/21 05/23/21 Unknown Rx tramadol 50 mg tablet 50 mg PO DAILY PRN #30 tab 03/29/21 05/23/21 Unknown Rx galantamine 24 mg 24 hr 24 mg PO QAM #30 cap 04/07/21 05/23/21 Unknown Rx capsule,extended release galantamine 8 mg 24 hr 8 mg PO QAM #30 cap 04/07/21 05/23/21 Unknown Rx capsule,extended release lisinopril 20 mg tablet 20 mg PO DAILY 04/07/21 05/23/21 Unknown History metolazone 5 mg tablet 5 mg PO DAILY PRN 04/07/21 05/23/21 Unknown History insulin aspart U-100 100 unit/mL 2 unit SUBCUT TID 90 Days #5.4 ml 05/04/21 05/23/21 Unknown Rx subcutaneous solution rivaroxaban 15 mg tablet See Rx Instructions .ROUTE 05/10/21 05/23/21 Unknown Rx .COMPLEX #60 tab metformin 1,000 mg tablet 500 mg PO BID #90 tab 05/15/21 05/23/21 Unknown Rx hydralazine 25 mg tablet See Rx Instructions .ROUTE 05/25/21 Unknown Rx .COMPLEX #90 tab citalopram 20 mg tablet See Rx Instructions .ROUTE 05/29/21 Unknown Rx .COMPLEX #30 tab galantamine 16 mg 24 hr See Rx Instructions .ROUTE 06/28/21 Unknown Rx capsule,extended release .COMPLEX #30 cap metolazone 5 mg tablet See Rx Instructions .ROUTE 06/28/21 Unknown Rx .COMPLEX #30 tab Allergies Allergy/AdvReac Type Severity Reaction Status Date / Time No Known Allergies Allergy Verified 07/10/21 12:20 Current Medications Generic Name Dose Route Start Last Admin Trade Name Isabelle PRN Reason Stop Dose Admin Dextrose/Sodium Chloride 1,000 mls @ 75 mls/hr 07/10/21 21:15 07/10/21 22:20 Dextrose 5%-Sod Chloride 0.9% IV 75 mls/hr .[id number] ANDREAS Administration Piperacillin Sod/Tazobactam 50 mls @ 12.5 mls/hr 07/10/21 21:15 07/11/21 01:47 Sod 3.375 gm/ Sodium Chloride IV Infused Q12H ANDREAS Infusion Protocol PFSH Acute PFSH: Medical History (Updated 07/11/21 @ 08:28 by Presley Mensah MD) Anemia Atrial fibrillation Chronic kidney disease (CKD) stage G3a/A1, moderately decreased glomerular filtration rate (GFR) between 45-59 mL/min/1.73 square meter and albuminuria creatinine ratio less than 30 mg/g Diabetes Gangrene of toe of right foot GERD (gastroesophageal reflux disease) History of abdominal hernia Hypercholesteremia Hypertension Sepsis Type 2 diabetes mellitus Venous insufficiency of both lower extremities Surgical History Amputation of fifth toe of left foot History of amputation of toe History of appendectomy History of foot surgery Family History Other Stroke Social History Smoking and tobacco status: never smoked Alcohol intake: never Vitals/I&O/Wt Last Vital Signs Temp 98.3 F 07/11/21 04:00 Pulse 72 07/11/21 06:16 Resp 15 07/11/21 04:00 BP 119/70 07/11/21 04:00 Pulse Ox 90 07/11/21 04:00 07/10/21 07/11/21 07/11/21 22:59 06:59 14:59 Intake Total 250 / 250 50 / 300 Output Total 400 / 400 Balance 250 / 250 -350 / -100 Weight last 48 hrs Weight 184 lb 5 oz Weight 186 lb Physical Exam Narrative: EXAM NARRATIVE: On examination of the patient's left foot there is dry gangrene over the plantar medial forefoot at the level of the metatarsal head perhaps over area for centimeters or so in diameter. Appears to be full-thickness and bone is palpable underneath. There is did some desquamation of the big toe dorsally. He has previous lateral incisions with amputations of his fifth toe it is shortened and contracted appearance of the fourth toe. I cannot feel any dorsalis pedis or tibialis posterior pulses. He has diminished sensation in both feet He has venous stasis changes extending to the knees and a superficial abrasion over his anterior mid leg. Data Micro: Micro: Microbiology 07/10/21 19:30 Blood Culture - Pr eliminary Blood SPECIMEN [facility] 07/10/21 19:25 Blood Culture - Pr eliminary Blood SPECIMEN [facility] Imaging^: Xray Ortho: My impression: I reviewed radiographs of the right foot. I can see no abnormalities about the first metatarsal. He has previous amputations of the fourth and fifth ray. A&P Assessment and plan (1) Gangrene of left foot: Mr. Cleary has had gangrene of his left foot which certainly is full-thickness. He has significant peripheral vascular disease with nonpalpable pulses. I discussed treatment options with him. I think certainly there area of gangrene needs to be eliminated with his fevers. I warned him that with his underlying peripheral vascular disease, renal failure, and diabetes mellitus his foot likely is not salvageable. Unfortunately he has venous stasis changes mid tibia and open tibial wound there would be some risk even with a below-knee amputation. He states he previously was ambulatory and would like to make efforts to save his foot if possible. I told would go to the OR and debride areas of gangrene and this will involve removal of his first ray. He understands and agrees to proceed. He understands it is likely additional procedures will be required. I think it is more than likely that this will end up in a much higher level amputation. Status: Acute Coding Level of Care Code Acute [employer] Manager for [facility] Diagnoses Gangrene of left foot I96
[2021-07-11 08:37] LABS: Blood Urea Nitrogen 99 mg/dL (8-23)
[2021-07-11] MEDS: insulin lispro 100 unit/1 mL SUBCUT ×2 (09:29→17:51)
[2021-07-11] MEDS: dextrose 5%-sod chloride 0.9% 1,000 ML 75 ML IV (09:29)
[2021-07-11] MEDS: atorvastatin 40 mg Tablet 20 MG PO (09:30)
[2021-07-11] MEDS: piperacillin-tazobactam 3.375 GM in sodium chloride 0.9% (plus) 50 ML IV ×2 (09:31→22:35)
[2021-07-11 09:43] LABS: Ferritin 144 ng/mL (30-400); Iron 11 ug/dL (59-158); Percent Saturation 6.7 % (20-50); Total Iron Binding Capacity 163 mcg/dl; Unsaturated Iron Binding 152 ug/dL (112-347)
--- NOTE | 2021-07-11 11:04 | ANES.PREANE2 ---
Pre-Anesthetic Assessment Pre-Anesthetic Assessment: Height/Weight: Height 1.83 m Weight 83.603 kg Temp Pulse Resp BP Pulse Ox 97.8 F 80 16 130/62 93 07/11/21 08:00 07/11/21 08:00 07/11/21 08:00 07/11/21 08:00 07/11/21 08:00 Preop Diagnosis: Gangrene left medial foot Proposed Procedure: Operation Date: 07/11/21 12:00 Proposed Procedures p Amputation left first ray(Left) - Presley Mensah MD Familial anesthetic complications: ponv Was Beta Dave taken within 24 hours: N/A Was Clonidine taken within 24 hours: N/A Last intake: > 8 hrs Social: Social History: No alcohol and No tobacco Exam: Pre-Anes Outpt Exam: alert, oriented x 3, clear to auscultation bilaterally and regular rate & rhythm Airway: MP: 1 Dentition: Other (none) CV/HEM: CV/HEM: Afib and HTN Comments: Echo CONCLUSIONS 1. Normal left ventricular size, systolic function and wall thickness, with no regional wall motion abnormalities. Left ventricular ejection fraction is estimated at 65-70 %. 2. Normal right ventricular size and systolic function. 3. No significant valvular abnormality. 4. Normal pulmonary artery pressure. 5. No significant change when compared to echocardiogram dated 09/27/2017. : : Chronic renal Insufficiency Metabolic: Metabolic: DM and Hyperlipidemia Anesthetic Plan: ASA status: 4 Anesthesia: General Risk of > 500 ml blood loss (7ml/kg in children): No Medications/Allergies Current Medications: Current Medications Generic Name Dose Route Start Last Admin Trade Name Freq PRN Reason Stop Dose Admin Atorvastatin Calci um 20 mg 07/11/21 09:00 07/11/21 09:30 Atorvastatin 40 Mg Tablet PO 20 mg DAILY ANDREAS Administration Dextrose/Sodium Ch loride 1,000 mls @ 75 ml s/hr 07/10/21 21:15 07/11/21 09:29 Dextrose 5%-Sod Chloride 0.9% IV 75 mls/hr .[id number] ANDREAS Administration Piperacillin Sod/T azobactam 50 mls @ 12.5 mls /hr 07/10/21 21:15 07/11/21 09:31 Sod 3.375 gm/ So dium Chloride IV 12.5 mls/hr Q12H ANDREAS Administration Protocol Insulin Human Lisp ro 0 unit 07/11/21 08:00 07/11/21 09:29 Insulin Lispro 1 00 Unit/1 Ml SUBCUT 2 unit TIDWM ANDREAS Administration Protocol PFSH Anesthesia PFSH: Medical History (Updated 07/11/21 @ 08:28 by Presley Mensah MD) Anemia Atrial fibrillation Chronic kidney disease (CKD) stage G3a/A1, moderately decreased glomerular filtration rate (GFR) between 45-59 mL/min/1.73 square meter and albuminuria creatinine ratio less than 30 mg/g Diabetes Gangrene of toe of right foot GERD (gastroesophageal reflux disease) History of abdominal hernia Hypercholesteremia Hypertension Sepsis Type 2 diabetes mellitus Venous insufficiency of both lower extremities Surgical History Amputation of fifth toe of left foot History of amputation of toe History of appendectomy History of foot surgery Family History Other Stroke Social History Smoking and tobacco status: never smoked Alcohol intake: never Data Anesthesia CBC & Chem 7: 07/11/21 06:10 07/11/21 06:10 Other Labs: Laboratory Results - last 48 hr 07/10/21 07/10/21 07/10/21 13:57 13:57 13:57 WBC 15.4 H RBC 3.11 L Hgb 8.0 L Hct 27.2 L MCV 87.5 MCH 25.7 L MCHC 29.4 L RDW 17.6 H Plt Count 288 MPV 8.8 Neut % (Auto) 91.0 Lymph % (Auto) 3.3 [place] % (Auto) 4.5 Eos % (Auto) 0.4 Baso % (Auto) 0.2 Neut # (Auto) 14.06 H Lymph # (Auto) 0.5 L [place] # (Auto) 0.7 Eos # (Auto) 0.1 Baso # (Auto) 0.0 Nucleated RBC % (auto) 0 Nucleated RBCs # 0.0 ESR PT 23.60 H INR 2.06 H Sodium 137 Potassium 3.8 Chloride 101 Carbon Dioxide 21 L Anion Gap 18.8 BUN 98 H* Creatinine 2.8 H GFR Calculation Not Reportable Glucose 56 L POC Glucose Calculated Osmolality 312 H Lactate Calcium 8.2 L Iron TIBC % Saturation Unsat Iron Binding Ferritin Total Bilirubin 0.3 AST 77 H ALT 99 H Alkaline Phosphatase 388 H C-Reactive Protein Total Protein 7.0 Albumin 2.5 L Globulin 4.5 Procalcitonin Urine Color Urine Appearance Urine pH Ur Specific [place] Urine Protein Urine Glucose (UA) Urine Ketones Urine Blood Urine Nitrate Urine Bilirubin Urine Urobilinogen Ur Leukocyte Esterase 07/10/21 07/10/21 07/10/21 13:57 19:50 21:41 WBC RBC Hgb Hct MCV MCH MCHC RDW Plt Count MPV Neut % (Auto) Lymph % (Auto) [place] % (Auto) Eos % (Auto) Baso % (Auto) Neut # (Auto) Lymph # (Auto) [place] # (Auto) Eos # (Auto) Baso # (Auto) Nucleated RBC % (auto) Nucleated RBCs # ESR PT INR Sodium Potassium Chloride Carbon Dioxide Anion Gap BUN Creatinine GFR Calculation Glucose POC Glucose 101 Calculated Osmolality Lactate 1.5 Calcium Iron TIBC % Saturation Unsat Iron Binding Ferritin Total Bilirubin AST ALT Alkaline Phosphatase C-Reactive Protein Total Protein Albumin Globulin Procalcitonin Urine Color Yellow Urine Appearance Clear Urine pH 5 Ur Specific [place] 1.010 Urine Protein Neg Urine Glucose (UA) Norm Urine Ketones Negative Urine Blood Neg Urine Nitrate Negative Urine Bilirubin Neg Urine Urobilinogen Norm Ur Leukocyte Esterase Negative 07/11/21 07/11/21 07/11/21 06:10 06:10 06:10 WBC 12.0 H RBC 2.98 L Hgb 7.6 L Hct 25.6 L MCV 85.9 MCH 25.5 L MCHC 29.7 L RDW 17.6 H Plt Count 285 MPV 8.9 Neut % (Auto) 89.0 Lymph % (Auto) 5.5 [place] % (Auto) 3.7 Eos % (Auto) 0.9 Baso % (Auto) 0.2 Neut # (Auto) 10.71 H Lymph # (Auto) 0.7 L [place] # (Auto) 0.5 Eos # (Auto) 0.1 Baso # (Auto) 0.0 Nucleated RBC % (auto) 0 Nucleated RBCs # 0.0 ESR PT INR Sodium 142 Potassium 3.9 Chloride 105 Carbon Dioxide 22 Anion Gap 18.9 BUN 99 H* Creatinine 2.5 H GFR Calculation Not Reportable Glucose 113 POC Glucose Calculated Osmolality 326 H Lactate Calcium 8.0 L Iron TIBC % Saturation Unsat Iron Binding Ferritin Total Bilirubin AST ALT Alkaline Phosphatase C-Reactive Protein Total Protein Albumin Globulin Procalcitonin 0.71 H Urine Color Urine Appearance Urine pH Ur Specific [place] Urine Protein Urine Glucose (UA) Urine Ketones Urine Blood Urine Nitrate Urine Bilirubin Urine Urobilinogen Ur Leukocyte Esterase 07/11/21 07/11/21 07/11/21 06:10 06:10 06:10 WBC RBC Hgb Hct MCV MCH MCHC RDW Plt Count MPV Neut % (Auto) Lymph % (Auto) [place] % (Auto) Eos % (Auto) Baso % (Auto) Neut # (Auto) Lymph # (Auto) [place] # (Auto) Eos # (Auto) Baso # (Auto) Nucleated RBC % (auto) Nucleated RBCs # ESR 67 H PT INR Sodium Potassium Chloride Carbon Dioxide Anion Gap BUN Creatinine GFR Calculation Glucose POC Glucose Calculated Osmolality Lactate Calcium Iron 11 L TIBC 163 % Saturation 6.7 L Unsat Iron Binding 152 Ferritin 144 Total Bilirubin AST ALT Alkaline Phosphatase C-Reactive Protein 223.2 H Total Protein Albumin Globulin Procalcitonin Urine Color Urine Appearance Urine pH Ur Specific [place] Urine Protein Urine Glucose (UA) Urine Ketones Urine Blood Urine Nitrate Urine Bilirubin Urine Urobilinogen Ur Leukocyte Esterase 07/11/21 07/11/21 06:10 06:42 WBC RBC Hgb Hct MCV MCH MCHC RDW Plt Count MPV Neut % (Auto) Lymph % (Auto) [place] % (Auto) Eos % (Auto) Baso % (Auto) Neut # (Auto) Lymph # (Auto) [place] # (Auto) Eos # (Auto) Baso # (Auto) Nucleated RBC % (auto) Nucleated RBCs # ESR PT INR Sodium Potassium Chloride Carbon Dioxide Anion Gap BUN Creatinine GFR Calculation Glucose POC Glucose 144 H Calculated Osmolality Lactate Calcium Iron Cancelled TIBC % Saturation Unsat Iron Binding Ferritin Total Bilirubin AST ALT Alkaline Phosphatase C-Reactive Protein Total Protein Albumin Globulin Procalcitonin Urine Color Urine Appearance Urine pH Ur Specific [place] Urine Protein Urine Glucose (UA) Urine Ketones Urine Blood Urine Nitrate Urine Bilirubin Urine Urobilinogen Ur Leukocyte Esterase Micro: Microbiology 07/10/21 19:30 Blood Culture - Preliminary Blood SPECIMEN COLLECTED 07/10/21 19:25 Blood Culture - Preliminary Blood SPECIMEN COLLECTED Cardiac Studies: Echocardiogram Ultrasound 10/29/20
[2021-07-11] MEDS: sodium chloride 0.9% 1,000 ML 30 ML IV (12:04)
[2021-07-11] MEDS: ceFAZolin 1,000 mg SDV 1000 MG IRRIGATION (12:45)
--- NOTE | 2021-07-11 12:58 | PM.OP ---
Operative Report Date of procedure: July 11, 2021 Pre-op Diagnosis: Gangrene left medial foot Post-op diagnosis: same Post-op Findings: Same Procedure Done: Amputation left first ray Pathology: none sent Surgeon: Presley Mensah Anesthesia: General Estimated blood loss (mL): 50 Findings: The patient had dry gangrene over her first metatarsal head plantarly with necrosis extending to the level of the mid first metatarsal shaft laterally and medially to the medial aspect of the big toe. Condition: stable Disposition: PACU Procedure: Mr. Cleary was taken to the operating room and given a general anesthesia. A timeout was performed. He was prepped and draped in the supine position with his left foot exposed. Initially scalpel blade was used to circumferentially incise the area of gangrene over the plantar and medial foot. The incision was then passed in the webspace between the first and second toes and the edges were brought back medially to the medial extent of the dry gangrene on the foot. Dissection was carried down to bone. Utilizing an oscillating saw the first metatarsal was sharply divided near its base. The incision was then extended medially in line with the first ray removing additional tissue marginal viability. At the conclusion the debridement all vascular areas were exposed. The wound was packed with a moist Kerlix, dry Kerlix 4 x 4 and compressive cast padding. A 4 inch Rene wrap was applied. The patient was extubated taken to recovery room in stable condition.
--- NOTE | 2021-07-11 13:28 | ANE.PACU2 ---
Inpatient post-anesthesia follow up: Airway intact: Yes Vital signs: Temperature 97.0 F Pulse Rate 54 Respiratory Rate 18 Blood Pressure 99/55 Pulse Oximetry 98 Oxygen Delivery Me thod Room Air Oxygen Flow Rate 6 Fraction of Inspir ed Oxygen Hydration adequate: Yes Nausea and vomiting: No Pain level: 2 Mental status: Baseline
[2021-07-11] MEDS: sodium chloride 0.9% 1,000 ML 80 ML IV (15:19)
--- NOTE | 2021-07-11 15:30 | P.PN_ITS ---
Subjective Subjective: Interval history: Patient was seen this morning, he is a bit upset about being n.p.o., his awaiting possible surgical intervention later on today, he has anemia, denies a history of GI bleeds, denies history of EGD, denies a history of bloody or black stools, denies a history of transfusions, Vitals/I&O/Wt Last Vital Signs Temp 97.7 F 07/11/21 14:15 Pulse 71 07/11/21 14:45 Resp 16 07/11/21 14:15 BP 112/51 07/11/21 14:45 Pulse Ox 95 07/11/21 14:45 07/11/21 07/11/21 07/11/21 06:59 14:59 22:59 Intake Total 50 / 300 1086.25 / 1086.25 435 / 1521.25 Output Total 400 / 400 0 / 0 Balance -350 / -100 1086.25 / 1086.25 435 / 1521.25 Weight last 48 hrs Weight 83.603 kg Weight 84.368 kg Physical Exam Const: COMMON NORMALS: no acute distress and patient oriented x3 Resp: COMMON NORMALS: normal respiratory effort, No retractions, No use of accessory muscles and clear to auscultation bilaterally AUSCULTATION: clear to auscultation bilaterally Cardio: COMMON NORMALS: regular rate, regular rhythm, S1 normal heart sound present and S2 normal heart sound present RATE: regular rate RHYTHM: regular rhythm HEART SOUNDS: S1 normal heart sound present and S2 normal heart sound present GI: COMMON NORMALS: Normal to inspection, nondistended, normoactive bowel sounds present, Soft to palpation and non-tender PALPATION: Yes Soft to palpation Extremity: NARRATIVE EXTREMITY EXAM: Right lower extremity, shins, open superficial wounds, with surrounding skin erythema Right lower extremity, foot, areas of gangrene Left lower extremity, shins, open superficial wounds with surrounding erythema Dry gangrene left foot or plantar medial forefoot DP PT pulses left not palpable Neuro: COMMON NORMALS: patient oriented x3 Psych: COMMON NORMALS: mental status grossly normal Data : 07/11/21 06:10 07/11/21 06:10 Micro: Microbiology 07/10/21 19:25 Blood Culture - Preliminary Blood SPECIMEN COLLECTED 07/10/21 19:30 Blood Culture - Preliminary Blood SPECIMEN COLLECTED A&P Assessment and plan (1) Ulcer of left foot: Status: Acute Qualifiers: Non-pressure ulcer stage: with other severity Qualified Code(s): L97.528 - Non-pressure chronic ulcer of other part of left foot with other specified severity (2) Venous stasis ulcers of both lower extremities: Status: Acute (3) Atrial fibrillation: Status: Acute Qualifiers: Atrial fibrillation type: persistent (not longstanding) Qualified Code(s): I48.19 - Other persistent atrial fibrillation (4) Venous insufficiency of both lower extremities: Status: Acute (5) Chronic kidney disease (CKD) stage G3a/A1, moderately decreased glomerular filtration rate (GFR) between 45-59 mL/min/1.73 square meter and albuminuria creatinine ratio less than 30 mg/g: Status: Acute (6) Hypertension: Status: Acute Qualifiers: Hypertension type: essential hypertension Qualified Code(s): I10 - Essential (primary) hypertension (7) Type 2 diabetes mellitus: Status: Acute Qualifiers: Diabetes mellitus complication detail: with peripheral angiopathy with gangrene Diabetes mellitus complication status: with circulatory complication Diabetes mellitus penitentiary insulin use: with penitentiary use Qualified Code(s): E11.52 - Type 2 diabetes mellitus with diabetic peripheral angiopathy with gangrene; Z79.4 - buttermaker (current) use of insulin (8) Sepsis: Status: Acute Additional A&P Information Lazara Cleary is a 75 year old male with past medical history of, hypertension , diabetes, CKD ) stage G3a/A1, atrial fibrillation on Xarelto,HFpEF, Venous insufficiency of both lower extremities, Gangrene of toe of right foot, came in from home after worsening left lower extremity ulcer, according to her who is a nurse he has a history of chronic bilateral lower extremity ulcer, initially he used to follow Dr. Reynoso in wound care clinic, but has not seen him in the last 6 months, as the was taking care of his chronic B/L lower extremity wounds, today she brought her to the hospital As advised by the primary care physician, because he recently developed left great toe wound according to the it started on last and has progressively gotten worsened, currently it has a large necrotic base.Patient also had an episode of fever at home last . #Sepsis secondary to bilateral lower extremity wound (left great toe base necrotic gangrene ) Patient has H/O fever at home , elevated WBC, extensive lower extremity wound. Follow-up blood culture. CRP 2-3, Pro-Lc 0.7, ESR 67 Continue Vanco and Zosyn for now Decreased DP PT nonpalpable bilaterally we will do ultrasound, has a history of PAD, will consider discussing with cardiology for better wound healing Orthopedic surgery has been consulted for surgical intervention N.p.o. #Acute on chronic anemia, -Hemoglobin 7.6, BUN 99 -Denies bloody or black stools -Iron low at 11, ferritin given infection is 144, percent saturation 6.7, TIBC 152 -Hemoccult pending -No evidence of a slow GI bleed -For now hold Xarelto -Monitor hemoglobin -Monitor for bloody black stools -Protonix 40 IV twice daily, Carafate #Peripheral arterial disease -Ultrasound in October 2020 -1. Significant spectral Doppler waveform dampening is identified in the left lower extremity infrapopliteal arterial runoff consistent with significant peripheral arterial disease changes. 2. Mild severity spectral Doppler waveform dampening is identified in the right lower extremity infrapopliteal arterial runoff consistent with mild severity peripheral arterial disease changes. 3. No significant waveform abnormalities above the knees. -No surgical intervention for peripheral arterial disease, medical management with antiplatelet and anticoagulant therapy -DP PT pulses nonpalpable -We will repeat ultrasound -We will will discuss with cardiology based on ultrasound, but creatinine is 2.8 #History of atrial fibrillation: Currently rate is well controlled EKG Xarelto on hold #TANIKA on CKD stage III: Likely prerenal TANIKA, possibly complicated by sepsis Currently serum creatinine: 2.8 Baseline serum creatinine: 1.7-2 IV hydration with NS Monitor BMP Intake output charting #Diabetes: SSI Monitor fingerstick glucose #Hypertension: Blood pressure currently been controlled #CODE STATUS: Full code #DVT prophylaxis: On heparin Attestations Medical Necessity Statement*: Patient requires hospitalization for sepsis secondary to left lower extremity cellulitis, gangrene, acute chronic anemia, peripheral arterial disease Coding Level of Care Code Acute Targeting Acquisition Officer for [facility] Diagnoses Ulcer of left foot L97.528 Non-pressure ulcer stage: with other severity Venous stasis ulcers of both lower extremities I83.019; I83.029; L97.919; L97.929 Atrial fibrillation I48.19 Atrial fibrillation type: persistent (not longstanding) Venous insufficiency of both lower extremities I87.2 Chronic kidney disease (CKD) stage G3a/A1, moderately decreased glomerular filtration rate (GFR) between 45-59 mL/min/1.73 square meter and albuminuria creatinine ratio less than 30 mg/g N18.31 Hypertension I10 Hypertension type: essential hypertension Type 2 diabetes mellitus E11.52; Z79.4 Diabetes mellitus complication detail: with peripheral angiopathy with gangrene Diabetes mellitus complication status: with circulatory complication Diabetes mellitus penitentiary insulin use: with buttermaker continuous churn use Sepsis A41.9
--- NOTE | 2021-07-11 15:34 | USCV_ITS ---
Evin Lazara Age: 75 Gender: M : 1945 Exam Date: 07/11/2021 15:49 Ordering Phys: Juliano David MD Technologist: Rohan Rosa Exam Location: [facility] – [place] Indication: ULCER ON FEET Risk Factors: Previous Vascular Surgery: RIGHT LEFT BP: 140.0 / 80.00 BP: 140.0/ 80.00 0 0 Waveform Velocity (cm/s) Velocity (cm/s) Waveform Triphasic 120.2 Iliac Prox 98.9 Triphasic Triphasic 95.2 Iliac Mid 98.9 Triphasic Triphasic Iliac Distal Triphasic 101.9 123.2 Triphasic 112.5 GRIP ASSEMBLER 115.8 Triphasic Triphasic 131.4 SFA Prox 143.6 Biphasic Triphasic 107.0 SFA Mid 149.0 Biphasic Triphasic 124.6 SFA Dist 139.5 Biphasic Monophasic 73.1 POP 70.4 Monophasic Monophasic 105.0 LINEN CONTROLLER ABSENT Monophasic 105.6 DPA 117.8 Monophasic 0.8 VISH 0.5 FINDINGS NO FLOW IN LT LINEN CONTROLLER Abnormal resting VISH bilaterally, 0.8 on the right side and 0.5 on the left side. Monophasic Doppler waveforms in the popliteal and infrapopliteal vessels bilaterally No Doppler flow signals in the left posterior tibial artery CONCLUSIONS 1. Abnormal resting VISH of 0.5 on the left side, suggestive of moderate to severe peripheral artery disease 2. Abnormal resting VISH of 0.8 consistent with a mild peripheral artery disease on the right side 3. 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 4. Abnormal Doppler waveforms suggesting popliteal/infrapopliteal disease bilaterally Compared to the study from 10/28/2020, the occlusion of the posterior tibial artery on the left side appears to be new Dr Carter Macedo MD [facility] (Electronically Signed) Final Date: 14 July 2021 16:57 S
[2021-07-11 16:36] LABS: Basophils % 0.1 %; Eosinophils % 0.3 %; Lymphocytes # 0.9 10^3/uL (0.8-4.8); Mean Corpuscular HGB Conc 29.2 g/dL (30.0-36.0); Mean Corpuscular Volume 85.7 fl (80-94); Mean Platelet Volume 8.6 fL (7.4-10.4); Monocytes # 0.6 10^3/uL (0.2-0.9); Monocytes % 5.5 %; Neutrophils # 9.52 10^3/uL (1.8-7.7); Neutrophils % 85.6 %; Nucleated Red Blood Cells % 0 %; Platelet Count 233 10^3/cmm (130-400); Red Cell Distribution Width 17.7 % (12.1-15.1); White Blood Count 11.1 10^3/uL (4.0-10.0)
[2021-07-11] MEDS: sucralfate 1 gm Tablet PO ×2 (17:50→22:37)
[2021-07-11] MEDS: sodium chloride 0.9% (100 ml) 100 ML (18:43)
[2021-07-11] MEDS: vancomycin 750 MG in sodium chloride 0.9% 250 ML 250 MG IV (18:43)
--- NOTE | 2021-07-11 19:58 | PC.NURSE ---
Shift report received from Tamika PEÑA. Patient in bed/awake. Denies pain or discomfort. Blood infusing at 125 mL/hr. NS infusing at 80mL/hr. Dressing L foot D/C/I. No needs voiced at this time.
[2021-07-11 20:59] LABS: Glucose Point of Care 288 mg/dL (70-110)
[2021-07-11] MEDS: heparin 5,000 unit/mL INJ 1 mL 5000 UNIT SUBCUT (22:36)
[2021-07-11] MEDS: pantoprazole 40 mg SDV IVP (22:37)
--- NOTE | 2021-07-12 00:33 | PC.NURSE ---
Patient in bed sleeping. No s/s of pain or discomfort. No needs noted at this time.
[2021-07-12 04:00] VITALS: BP 148/70; PULSE 64; RESP 17; TEMP 36.6; O2SAT 99
[2021-07-12 06:19] LABS: Basophils % 0.2 %; Eosinophils # 0.1 10^3/uL (0.0-0.8); Eosinophils % 0.5 %; Hematocrit 27.1 % (42.0-52.0); Hemoglobin 8.1 g/dL (11.7-16.6); Lymphocytes % 9.2 %; Mean Corpuscular HGB Conc 29.9 g/dL (30.0-36.0); Mean Corpuscular Hemoglobin 25.7 pg (28.0-34.0); Monocytes # 0.6 10^3/uL (0.2-0.9); Monocytes % 5.5 %; Nucleated Red Blood Cells % 0 %; Platelet Count 240 10^3/cmm (130-400); Red Blood Count 3.15 10^6/uL (4.1-5.3); Red Cell Distribution Width 17.3 % (12.1-15.1); White Blood Count 10.8 10^3/uL (4.0-10.0)
[2021-07-12 06:30] LABS: Anion Gap 16.9 (5-19); Calcium 7.7 mg/dL (8.5-10.5); Carbon Dioxide 20 mmol/L (22-29); Chloride 106 mmol/L (98-107); Glucose 232 mg/dL (65-115); Osmolality Calculated 322 mOsm/kg (285-295); Potassium 3.9 mmol/L (3.5-5.1); Sodium 139 mmol/L (136-145)
[2021-07-12] MEDS: sucralfate 1 gm Tablet PO ×4 (06:31→22:14)
[2021-07-12 06:47] LABS: Blood Urea Nitrogen 88 mg/dL (8-23)
[2021-07-12 06:49] LABS: Glucose Point of Care 255 mg/dL (70-110)
[2021-07-12 07:29] VITALS: BP 122/70; PULSE 54; RESP 18; TEMP 36.4; O2SAT 97
[2021-07-12] MEDS: sodium chloride 0.9% 1,000 ML 80 ML IV (07:29)
[2021-07-12] MEDS: pantoprazole 40 mg SDV IVP ×2 (08:33→22:14)
[2021-07-12] MEDS: atorvastatin 40 mg Tablet 20 MG PO (08:33)
[2021-07-12] MEDS: insulin lispro 100 unit/1 mL SUBCUT ×3 (08:33→16:16)
[2021-07-12] MEDS: piperacillin-tazobactam 3.375 GM in sodium chloride 0.9% (plus) 50 ML IV ×2 (08:34→22:13)
[2021-07-12] MEDS: heparin 5,000 unit/mL INJ 1 mL 5000 UNIT SUBCUT (08:37)
[2021-07-12 11:46] LABS: Glucose Point of Care 149 mg/dL (70-110)
[2021-07-12 12:00] VITALS: BP 146/82; PULSE 82; RESP 18; TEMP 36.7; O2SAT 98
--- NOTE | 2021-07-12 13:41 | PM.PN ---
Subjective Subjective: Interval history: Patient was seen this morning currently sitting up in a chair, denies any nausea, vomiting, no lower extremity pain, denies any bloody or black stools Vitals/I&O/Wt Last Vital Signs Temp 98.1 F 07/12/21 12:00 Pulse 82 07/12/21 12:00 Resp 18 07/12/21 12:00 BP 146/82 07/12/21 12:00 Pulse Ox 98 07/12/21 12:00 07/11/21 07/12/21 07/12/21 22:59 06:59 14:59 Intake Total 1786.667 / 2872.917 1150 / 4022.917 531.333 / 531.333 Output Total 760 / 760 100 / 100 Balance 1786.667 / 2872.917 390 / 3262.917 431.333 / 431.333 Weight last 48 hrs Weight 83.603 kg Physical Exam Const: COMMON NORMALS: no acute distress and patient oriented x3 Resp: COMMON NORMALS: normal respiratory effort, No retractions, No use of accessory muscles and clear to auscultation bilaterally AUSCULTATION: clear to auscultation bilaterally Cardio: COMMON NORMALS: regular rate, regular rhythm, S1 normal heart sound present and S2 normal heart sound present RATE: regular rate RHYTHM: regular rhythm HEART SOUNDS: S1 normal heart sound present and S2 normal heart sound present GI: COMMON NORMALS: Normal to inspection, nondistended, normoactive bowel sounds present, Soft to palpation and non-tender PALPATION: Yes Soft to palpation Extremity: NARRATIVE EXTREMITY EXAM: Left lower extremity, wrapped and bandaged Left dahl, superficial ulcer Right dahl, superficial ulcer Neuro: COMMON NORMALS: patient oriented x3 Psych: COMMON NORMALS: mental status grossly normal Data : 07/12/21 05:52 07/12/21 05:52 Micro: Microbiology 07/12/21 10:16 Blood Culture - Preliminary Blood SPECIMEN COLLECTED 07/12/21 10:13 Blood Culture - Preliminary Blood SPECIMEN COLLECTED 07/10/21 19:30 Blood Culture - Preliminary Blood NEGATIVE TO DATE 07/10/21 19:25 Blood Culture - Preliminary Blood Methicillin Resis Staph Aureus A&P Assessment and plan (1) Ulcer of left foot: Status: Acute Qualifiers: Non-pressure ulcer stage: with other severity Qualified Code(s): L97.528 - Non-pressure chronic ulcer of other part of left foot with other specified severity (2) Venous stasis ulcers of both lower extremities: Status: Acute (3) Atrial fibrillation: Status: Acute Qualifiers: Atrial fibrillation type: persistent (not longstanding) Qualified Code(s): I48.19 - Other persistent atrial fibrillation (4) Venous insufficiency of both lower extremities: Status: Acute (5) Chronic kidney disease (CKD) stage G3a/A1, moderately decreased glomerular filtration rate (GFR) between 45-59 mL/min/1.73 square meter and albuminuria creatinine ratio less than 30 mg/g: Status: Acute (6) Hypertension: Status: Acute Qualifiers: Hypertension type: essential hypertension Qualified Code(s): I10 - Essential (primary) hypertension (7) Type 2 diabetes mellitus: Status: Acute Qualifiers: Diabetes mellitus complication detail: with peripheral angiopathy with gangrene Diabetes mellitus complication status: with circulatory complication Diabetes mellitus retirement insulin use: 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 Qualified Code(s): E11.52 - Type 2 diabetes mellitus with diabetic peripheral angiopathy with gangrene; Z79.4 - equipment operator intermodal yard (current) use of insulin (8) Sepsis: Status: Acute (9) MRSA bacteremia: Status: Acute Additional A&P Information Lazara Cleary is a 75 year old male with past medical history of, hypertension , diabetes, CKD ) stage G3a/A1, atrial fibrillation on Xarelto,HFpEF, Venous insufficiency of both lower extremities, Gangrene of toe of right foot, came in from home after worsening left lower extremity ulcer, according to her who is a nurse he has a history of chronic bilateral lower extremity ulcer, initially he used to follow Dr. Reynoso in wound care clinic, but has not seen him in the last 6 months, as the was taking care of his chronic B/L lower extremity wounds, today she brought her to the hospital As advised by the primary care physician, because he recently developed left great toe wound according to the it started on last and has progressively gotten worsened, currently it has a large necrotic base.Patient also had an episode of fever at home last . #Sepsis secondary to bilateral lower extremity wound (left great toe base necrotic gangrene ) Wound cultures in the past have grown MRSA Patient has H/O fever at home , elevated WBC, extensive lower extremity wound. the patient had dry gangrene over her first metatarsal head plantarly with necrosis extending to the level of the mid first metatarsal shaft laterally and medially to the medial aspect of the big toe. 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 Mensah 1 blood culture positive for MRSA, second negative so far Repeat blood cultures pending CRP 2-3, Pro-Lc 0.7, ESR 67 Continue Vanco and Zosyn for now Decreased DP PT nonpalpable bilaterally we will do ultrasound, has a history of PAD, creatinine is 2.2, discussed with cardiology about considering peripheral angiogram, due to concerns for poor healing and antibiotic penetration Orthopedic surgery on consult Interventional cardiology on consult Diabetic diet #MRSA bacteremia, antibiotics as above #Acute on chronic anemia, -Hemoglobin 8.1, elevated BUN, status post 1 unit PRBC -Denies bloody or black stools -Iron low at 11, ferritin given infection is 144, percent saturation 6.7, TIBC 152 -Hemoccult pending -Has evidence of slow GI bleed -For now hold Xarelto -Monitor hemoglobin -Monitor for bloody black stools -Protonix 40 IV twice daily, Carafate #Peripheral arterial disease -Ultrasound in October 2020 -1. Significant spectral Doppler waveform dampening is identified in the left lower extremity infrapopliteal arterial runoff consistent with significant peripheral arterial disease changes. 2. Mild severity spectral Doppler waveform dampening is identified in the right lower extremity infrapopliteal arterial runoff consistent with mild severity peripheral arterial disease changes. 3. No significant waveform abnormalities above the knees. -No surgical intervention for peripheral arterial disease, medical management with antiplatelet and anticoagulant therapy -DP PT pulses nonpalpable -We will repeat ultrasound -Interventional cardiology on consult for intervention, creatinine 2.2 -Issue is is that as she has concerns for GI bleed, transfusion dependent anemia, long-term use of Xarelto might be relatively contraindicated which would worsen his peripheral arterial disease #History of atrial fibrillation: Currently rate is well controlled EKG Xarelto on hold -Elevated INR at 2.0, likely sec to Xarelto continue to monitor #TANIKA on CKD stage III: Likely prerenal TANIKA, possibly complicated by sepsis Currently serum creatinine: 2.2 Baseline serum creatinine: 1.7-2 IV hydration with NS Monitor BMP Intake output charting #Diabetes: SSI Monitor fingerstick glucose #Hypertension: Blood pressure currently been controlled #CODE STATUS: Full code #DVT prophylaxis: On heparin Attestations Medical Necessity Statement*: Patient requires hospitalization for diabetic foot ulcer, peripheral arterial disease, MRSA bacteremia, slow GI bleed Coding Level of Care Code Acute Mounter Hand for Chg Fwd Diagnoses Ulcer of left foot L97.528 Non-pressure ulcer stage: with other severity Venous stasis ulcers of both lower extremities I83.019; I83.029; L97.919; L97.929 Atrial fibrillation I48.19 Atrial fibrillation type: persistent (not longstanding) Venous insufficiency of both lower extremities I87.2 Chronic kidney disease (CKD) stage G3a/A1, moderately decreased glomerular filtration rate (GFR) between 45-59 mL/min/1.73 square meter and albuminuria creatinine ratio less than 30 mg/g N18.31 Hypertension I10 Hypertension type: essential hypertension Type 2 diabetes mellitus E11.52; Z79.4 Diabetes mellitus complication detail: with peripheral angiopathy with gangrene Diabetes mellitus complication status: with circulatory complication Diabetes mellitus retirement insulin use: 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
[2021-07-12 16:00] VITALS: BP 162/71; PULSE 66; RESP 18; TEMP 36.8; O2SAT 96
[2021-07-12 16:15] LABS: Glucose Point of Care 324 mg/dL (70-110)
[2021-07-12] MEDS: docusate sodium 100 mg Capsule PO (16:17)
--- NOTE | 2021-07-12 17:31 | P.CONIM_ITS ---
Providers/Reason For Consult Consulting Physician/Specialty*: Interventional cardiology Reason for Consult*: Gangrene of foot/critical limb ischemia Attending Physician: Juliano David MD Primary Care Provider: Jose Patiño MD History of Present Illness History of Present Illness Lazara Cleary is a 75 year old male past medical history significant for chronic anemia dementia severe peripheral arterial disease chronic kidney disease baseline creatinine around 2.0-2.2 heart failure atrial fibrillation was admitted with gangrene of his foot underwent procedure of left metatarsal for dry gangrene of left foot. Vascular study was suggestive of severe infrapopliteal disease. We have been asked if we can help in revascularization. I spoke to the patient he appeared to be not understanding it clearly I am not sure whether he has underlying dementia he has told me that he is going home tomorrow morning as he has to turn on his feet. He denies at the moment any pain in the legs. Review of Systems Const: Denies: fever(s), chills, body aches, change in appetite or diaphoresis Eyes: Denies: blurry vision, photophobia or eye discomfort ENMT: Denies: throat pain or dental pain Card: Denies: chest pain or palpitations Resp: Denies: dyspnea, productive cough, wheezing or pain on inspiration GI: Denies: abdominal pain, nausea, vomiting, diarrhea or constipation : Denies: flank pain, difficulty urinating or dysuria Musc: Denies: neck pain, back pain, extremity pain or extremity swelling Skin/Breast: Denies: rash Neuro: Denies: headache(s), difficulty walking or confusion Psych: Denies: depression Devonte/Lymph: Denies: easy bruising All/Imm: Denies: urticaria Medications/Allergies Home Medications Medication Instructions Recorded Confirmed Last Taken Type ferrous sulfate 325 mg (65 mg 325 mg PO BID 10/04/20 07/11/21 10/28/20 History iron) tablet,delayed release pantoprazole 40 mg tablet,delayed 40 mg PO QAM 10/04/20 07/11/21 10/28/20 History release tramadol 50 mg tablet 50 mg PO DAILY PRN #30 tab 03/29/21 07/11/21 Unknown Rx galantamine 24 mg 24 hr 24 mg PO QAM #30 cap 04/07/21 07/11/21 Unknown Rx capsule,extended release lisinopril 20 mg tablet 20 mg PO QAM 04/07/21 07/11/21 Unknown History metformin 1,000 mg tablet 500 mg PO BID #90 tab 05/15/21 07/11/21 Unknown Rx Levemir FlexTouch U-100 Insuln 10 unit SUBCUT BID 07/11/21 07/11/21 Unknown History ascorbic acid (vitamin C) [Vitamin 500 mg PO BID 07/11/21 07/11/21 Unknown History C] atorvastatin 20 mg PO BEDTIME 07/11/21 07/11/21 Unknown History citalopram 20 mg PO QAM 07/11/21 07/11/21 Unknown History furosemide See Rx Instructions .ROUTE .COMPLEX 07/11/21 07/11/21 Unknown History hydralazine 25 mg PO BID 07/11/21 07/11/21 Unknown History insulin aspart U-100 [Novolog See Rx Instructions .ROUTE .COMPLEX 07/11/21 0 07/11/21 Unknown History U-100 Insulin aspart] metolazone 5 mg PO DAILY PRN 07/11/21 07/11/21 Unknown History rivaroxaban [Xarelto] 15 mg PO QPM 07/11/21 07/11/21 Unknown History Allergies Allergy/AdvReac Type Severity Reaction Status Date / Time No Known Allergies Allergy Verified 07/11/21 10:41 Current Medications Generic Name Dose Route Start Last Admin Trade Name Freq PRN Reason Stop Dose Admin Atorvastatin Calcium 20 mg 07/11/21 09:00 07/12/21 08:33 Atorvastatin 40 Mg Tablet PO 20 mg DAILY ANDREAS Administration Docusate Sodium 100 mg 07/12/21 12:30 07/12/21 16:17 Docusate Sodium 100 Mg Capsule PO 100 mg BID ANDREAS Administration Heparin Sodium (Porcine) 5,000 unit 07/11/21 21:15 07/12/21 08:37 Heparin 5,000 Unit/Ml Inj 1 Ml SUBCUT 5,000 unit Q12H ANDREAS Administration Piperacillin Sod/Tazobactam 50 mls @ 12.5 mls/hr 07/10/21 21:15 07/12/21 12:37 Sod 3.375 gm/ Sodium Chloride IV Infused Q12H ANDREAS Infusion Protocol Vancomycin HCl 750 mg/ Sodium 250 mls @ 250 mls/hr 07/11/21 19:30 07/11/21 19:43 Chloride IV Infused Q24H ANDREAS Infusion Sodium Chloride 1,000 mls @ 80 mls/hr 07/11/21 15:02 07/12/21 07:30 Sodium Chloride 0.9% IV 80 mls/hr .[id number] ANDREAS Infusion Insulin Human Lispro 0 unit 07/11/21 08:00 07/12/21 16:16 Insulin Lispro 100 Unit/1 Ml SUBCUT 10 unit TIDWM ANDREAS Administration Protocol Pantoprazole Sodium 40 mg 07/11/21 09:30 07/12/21 08:33 Pantoprazole 40 Mg Sdv IVP 40 mg Q12H ANDREAS Administration Polyethylene Glycol 17 gm 07/12/21 12:30 07/12/21 12:40 Polyethylene Glycol 3350 Pkt 17 Gm PO Not Given DAILY ANDREAS Sucralfate 1 gm 07/11/21 11:00 07/12/21 16:16 Sucralfate 1 Gm Tablet PO 1 gm AC&BEDTIME ANDREAS Administration PFSH Acute PFSH: Medical History (Updated 07/12/21 @ 13:50 by Juliano David MD) Anemia Atrial fibrillation Chronic kidney disease (CKD) stage G3a/A1, moderately decreased glomerular filtration rate (GFR) between 45-59 mL/min/1.73 square meter and albuminuria creatinine ratio less than 30 mg/g Diabetes Gangrene of toe of right foot GERD (gastroesophageal reflux disease) History of abdominal hernia Hypercholesteremia Hypertension Sepsis Type 2 diabetes mellitus Venous insufficiency of both lower extremities Surgical History Amputation of fifth toe of left foot History of amputation of toe History of appendectomy History of foot surgery Family History Other Stroke Social History Smoking and tobacco status: never smoked Alcohol intake: never Vitals/I&O/Wt Last Vital Signs Temp 98.2 F 07/12/21 16:00 Pulse 66 07/12/21 16:00 Resp 18 07/12/21 16:00 BP 162/71 07/12/21 16:00 Pulse Ox 96 07/12/21 16:00 07/12/21 07/12/21 07/12/21 06:59 14:59 22:59 Intake Total 1150 / 4022.917 1011.333 / 1011.333 Output Total 760 / 760 100 / 100 Balance 390 / 3262.917 911.333 / 911.333 Weight last 48 hrs Weight 184 lb 5 oz Physical Exam Narrative: EXAM NARRATIVE: GENERAL: Patient is alert, awake and oriented x3. NECK: No jugular vein distension. HEENT: No cyanosis. No icterus. No pallor. HEART: Regular S1 and S2. No murmur, rub or gallop. LUNGS: Clear to auscultate bilaterally. CENTRAL NERVOUS SYSTEM: Grossly nonfocal. EXTREMITIES: Lower extremities without edema bilaterally. Left foot wrapped Data Micro: Micro: Microbiology 07/12/21 10:16 Blood Culture - Pr eliminary Blood SPECIMEN [facility] 07/12/21 10:13 Blood Culture - Pr eliminary Blood SPECIMEN [facility] 07/10/21 19:30 Blood Culture - Pr eliminary Blood NEGATIVE TO [place] E 07/10/21 19:25 Blood Culture - Pr eliminary Blood Methicillin Res is Staph Aureus A&P Assessment and plan (1) Gangrene of left foot: Patient has gangrenous left foot. He has infrapopliteal severe peripheral arterial disease. We have offered patient as we can try with peripheral angiogram using limited contrast keeping in mind he is high risk for contrast- induced nephropathy to see whether we can help in healing his wound. I am not sure but the patient understands it are not due to underlying dementia. I will discuss this case with Dr. Avitia to see whether any other family member can touch base with him or decide what is the status of his competency for the plan will be advised after that. Status: Acute (2) Atrial fibrillation: Status: Acute Qualifiers: Atrial fibrillation type: persistent (not longstanding) Qualified Code(s): I48.19 - Other persistent atrial fibrillation (3) Dementia without behavioral disturbance: Status: Acute Qualifiers: Dementia type: unspecified type Qualified Code(s): F03.90 - Unspecified dementia without behavioral disturbance (4) Chronic kidney disease (CKD) stage G3a/A1, moderately decreased glomerular filtration rate (GFR) between 45-59 mL/min/1.73 square meter and albuminuria creatinine ratio less than 30 mg/g: Status: Acute Consult Attestations Medical Necessity Statement: As per medicine Coding Level of Care Code New Pt Acute Health Informatics Advisor for Chg Fwd Patient Type New History Detailed Exam Detailed Medical Decision Making Moderate Complexity Diagnoses Gangrene of left foot I96 Atrial fibrillation I48.19 Atrial fibrillation type: persistent (not longstanding) Dementia without behavioral disturbance F03.90 Dementia type: unspecified type Chronic kidney disease (CKD) stage G3a/A1, moderately decreased glomerular filtration rate (GFR) between 45-59 mL/min/1.73 square meter and albuminuria creatinine ratio less than 30 mg/g N18.31
[2021-07-12] MEDS: vancomycin 750 MG in sodium chloride 0.9% 250 ML 250 MG IV (17:57)
[2021-07-12 19:53] VITALS: BP 147/77; PULSE 74; RESP 18; TEMP 36.8; O2SAT 97
--- NOTE | 2021-07-12 20:32 | PC.NURSE ---
Shift report received from Leandra PEÑA. Patient up in chair/resting. IV patent infusing NS at 80mL/hr. Patient denies pain. No s/s of pain or discomfort. No needs voiced at this time.
[2021-07-13] VITALS: BP 145/75; PULSE 66; RESP 18; TEMP 37.2; O2SAT 98
--- NOTE | 2021-07-13 00:12 | PC.NURSE ---
Offered to assist patient from chair to bed x2 this shift / patient declined and wanted to sit up longer. Instructed patient to call when ready to transfer back to bed.
[2021-07-13] MEDS: heparin 5,000 unit/mL INJ 1 mL 5000 UNIT SUBCUT ×3 (02:03→22:48)
--- NOTE | 2021-07-13 03:29 | PC.NURSE ---
0145 Patient up to [facility] x2 staff/ agreeable to get back in bed at this time. Dressing left foot reinforced with kerlex. Rene wrap replaced. Moderate sanguineous drainage. No other needs voiced at this time.
[2021-07-13 04:00] VITALS: BP 157/65; PULSE 67; RESP 18; TEMP 36.6; O2SAT 96
[2021-07-13 06:01] LABS: Basophils % 0.1 %; Eosinophils # 0.1 10^3/uL (0.0-0.8); Eosinophils % 0.8 %; Hematocrit 25.7 % (42.0-52.0); Hemoglobin 7.7 g/dL (11.7-16.6); Lymphocytes # 0.9 10^3/uL (0.8-4.8); Mean Corpuscular Hemoglobin 25.3 pg (28.0-34.0); Mean Corpuscular Volume 84.5 fl (80-94); Mean Platelet Volume 8.5 fL (7.4-10.4); Monocytes # 0.6 10^3/uL (0.2-0.9); Monocytes % 5.3 %; Neutrophils # 9.32 10^3/uL (1.8-7.7); Neutrophils % 85.2 %; Nucleated Red Blood Cells % 0 %; Platelet Count 237 10^3/cmm (130-400); Red Blood Count 3.04 10^6/uL (4.1-5.3); Red Cell Distribution Width 17.3 % (12.1-15.1); White Blood Count 10.9 10^3/uL (4.0-10.0)
[2021-07-13 06:11] LABS: Anion Gap 16.7 (5-19); Blood Urea Nitrogen 80 mg/dL (8-23); Calcium 7.7 mg/dL (8.5-10.5); Carbon Dioxide 20 mmol/L (22-29); Chloride 111 mmol/L (98-107); Glucose 264 mg/dL (65-115); Osmolality Calculated 331 mOsm/kg (285-295); Potassium 3.7 mmol/L (3.5-5.1); Sodium 144 mmol/L (136-145)
[2021-07-13 06:18] LABS: Procalcitonin 0.36 ng/mL (0-0.5)
[2021-07-13 06:48] LABS: C Reactive Protein 121.6 mg/L (0.0-4.9); Magnesium 2.3 mg/dL (1.7-2.3); Phosphorus 2.3 mg/dL (2.5-4.5)
[2021-07-13 06:54] LABS: Glucose Point of Care 295 mg/dL (70-110)
[2021-07-13] MEDS: sodium chloride 0.9% 1,000 ML 80 ML IV ×2 (07:34→09:19)
[2021-07-13] MEDS: docusate sodium 100 mg Capsule PO ×2 (08:59→16:47)
[2021-07-13] MEDS: insulin lispro 100 unit/1 mL SUBCUT ×3 (08:59→18:32)
[2021-07-13] MEDS: atorvastatin 40 mg Tablet 20 MG PO (08:59)
[2021-07-13] MEDS: pantoprazole 40 mg SDV IVP ×2 (08:59→22:33)
[2021-07-13] MEDS: sucralfate 1 gm Tablet PO ×4 (09:00→22:33)
[2021-07-13] MEDS: piperacillin-tazobactam 3.375 GM in sodium chloride 0.9% (plus) 50 ML IV ×3 (09:01→23:56)
--- NOTE | 2021-07-13 11:12 | PC.SOCIAL ---
IMM UPDATED IMM dated and initialed and copy given to patient
[2021-07-13 12:00] VITALS: BP 125/73; PULSE 77; RESP 18; TEMP 36.4; O2SAT 97
[2021-07-13 12:18] LABS: Glucose Point of Care 289 mg/dL (70-110)
--- NOTE | 2021-07-13 13:02 | USCV_ITS ---
Evin Lazara Age: 75 Gender: M : 1945 Exam Date: 07/13/2021 14:30 Ordering Phys: Juliano David MD Technologist: Arden Rios Exam Location: [facility] [place] Indication: AMS Risk Factors: Previous Vascular Surgery: Right Brachial BP: / Left Brachial BP: / Right Left Velocity (cm/s) Spectral Plaque Velocity (cm/s) Spectral Plaque Syst/Diast Broadening Syst/Diast Broadening 67.30/ 8.80 Prox CCA 59.00 / 8.50 96.90/ 9.65 Mid CCA 62.40 / 9.40 90.00/ 10.00 Distal CCA 65.00 / 10.00 83.85/ 12.40 Prox ICA 54.70 / 10.30 70.05/ 7.80 Mid ICA 48.70 / 8.50 62.95/ 12.50 Distal ICA 67.50 / 15.40 100.93 ECA 113.60 0.83 ICA/CCA 1.08 Antegrade Vertebral Antegrade 60.20/ 8.80 cm/s 55.50/ 12.00 cm/s Bi Subclavian Bi 150.7 76.90 5 FINDINGS Comparison: none available. No significant elevation of systolic or diastolic velocities. Waveforms are normal. Mild bilateral carotid atherosclerosis. Antegrade vertebral arteries. CONCLUSIONS Bilateral ICA stenosis less than 50%. Dr. Karla Bacon DO (Electronically Signed) Final Date: 13 July 2021 16:14 S
--- NOTE | 2021-07-13 13:02 | CT_ITS ---
WS: [id number] CT HEAD NONCONTRAST HISTORY: ams TECHNIQUE: Contiguous axial imaging performed through the brain in 2.5 mm imaging. Bone and soft tiss ue windows. Sagittal and coronal reformats reviewed. All CT scans at [facility] use at least one of these dose optimization techniques: automated exposure control; mA and/or kV adjustment per pa tient size (includes targeted exams where dose is matched to clinical indication); or iterative recon struction. DLP: 1830.45 mGy.cm COMPARISON: 12/08/2020 No acute intracranial hemorrhage, midline shift or mass effect. Mild atrophy and mild chronic microvascular ischemic disease. Focal area of increased density along t he posterior falx was also present on the prior therefore calcification and not blood. Small lacunar infarct external capsule on the RIGHT. Prominent perivascular space along the LEFT inferior basal ga nglia. Ventricles: Mildly prominent ventricles. Slight dilatation of the temporal horns. Stable since the p rior study. Paranasal sinuses: As visualized are clear. Mastoid air cells: Well pneumatized. Calvarium and scalp: Skull is intact with no soft tissue edema or swelling. CT/CT head wo con* [id number] IMPRESSION: 1. No acute intracranial hemorrhage or edema. 2. Atrophy and chronic microvascular ischemic disease similar to the prior sophy dy. No acute interval change.
--- NOTE | 2021-07-13 13:02 | P.PN_ITS ---
Subjective Subjective: Interval history: Patient was seen this morning he had episodes of confusion overnight, this morning is alert to person, to place, not to time, he follows commands, denies any weakness, no slurring of words no facial droop, no headache, blurry vision, he does not know why he was confused, he has critical limb ischemia of his left lower extremity, discussed that we need to pursue intervention to improve blood flow, discussed risks of peripheral angiogram including risk of dialysis, he understands, but he wants his leg to heal, wants to talk to tooling inspector again Vitals/I&O/Wt Last Vital Signs Temp 97.5 F L 07/13/21 12:00 Pulse 77 07/13/21 12:00 Resp 18 07/13/21 12:00 BP 125/73 07/13/21 12:00 Pulse Ox 97 07/13/21 12:00 07/12/21 07/13/21 07/13/21 22:59 06:59 14:59 Intake Total 1488.667 / 2500.000 50 / 2550.000 620 / 620 Output Total 375 / 475 500 / 500 Balance 1113.667 / 2025.000 50 / 2075.000 120 / 120 Physical Exam Const: COMMON NORMALS: no acute distress and patient oriented x3 ORIENTATION/CONSCIOUSNESS: Yes awake, Yes oriented to person and Yes oriented to place; not oriented to time Resp: COMMON NORMALS: normal respiratory effort, No retractions, No use of accessory muscles and clear to auscultation bilaterally AUSCULTATION: clear to auscultation bilaterally Cardio: COMMON NORMALS: regular rate, regular rhythm, S1 normal heart sound present and S2 normal heart sound present RATE: regular rate RHYTHM: regular rhythm HEART SOUNDS: S1 normal heart sound present and S2 normal heart sound present GI: COMMON NORMALS: Normal to inspection, nondistended, normoactive bowel sounds present, Soft to palpation and non-tender PALPATION: Yes Soft to palpation Extremity: COMMON NORMALS: no pedal edema NARRATIVE EXTREMITY EXAM: Left lower extremity, wrapped and bandaged Left dahl, superficial ulcer Right dahl, superficial ulcer Neuro: COMMON NORMALS: patient oriented x3 SENSORIUM/ORIENTATION: Yes oriented to person, Yes oriented to place and No oriented to time Psych: COMMON NORMALS: mental status grossly normal Data : 07/13/21 05:40 07/13/21 05:40 Micro: Microbiology 07/10/21 19:25 Blood Culture - Preliminary Blood Methicillin Resis Staph Aureus 07/12/21 10:16 Blood Culture - Preliminary Blood NEGATIVE TO DATE 07/12/21 10:13 Blood Culture - Preliminary Blood NEGATIVE TO DATE 07/13/21 02:15 Occult Blood (FIT) - Final Stool - Stool Aspirate A&P Assessment and plan (1) Ulcer of left foot: Status: Acute Qualifiers: Non-pressure ulcer stage: with other severity Qualified Code(s): L97.528 - Non-pressure chronic ulcer of other part of left foot with other specified severity (2) Venous stasis ulcers of both lower extremities: Status: Acute (3) Atrial fibrillation: Status: Acute Qualifiers: Atrial fibrillation type: persistent (not longstanding) Qualified Code(s): I48.19 - Other persistent atrial fibrillation (4) Venous insufficiency of both lower extremities: Status: Acute (5) Chronic kidney disease (CKD) stage G3a/A1, moderately decreased glomerular filtration rate (GFR) between 45-59 mL/min/1.73 square meter and albuminuria creatinine ratio less than 30 mg/g: Status: Acute (6) Hypertension: Status: Acute Qualifiers: Hypertension type: essential hypertension Qualified Code(s): I10 - Essential (primary) hypertension (7) Type 2 diabetes mellitus: Status: Acute Qualifiers: Diabetes mellitus complication detail: with peripheral angiopathy with gangrene Diabetes mellitus complication status: with circulatory complication Diabetes mellitus intermodal customer service insulin use: with correction use Qualified Code(s): E11.52 - Type 2 diabetes mellitus with diabetic peripheral angiopathy with gangrene; Z79.4 - termite technician (current) use of insulin (8) Sepsis: Status: Acute (9) MRSA bacteremia: Status: Acute Additional A&P Information Lazara Cleary is a 75 year old male with past medical history of, hypertension , diabetes, CKD ) stage G3a/A1, atrial fibrillation on Xarelto,HFpEF, Venous insufficiency of both lower extremities, Gangrene of toe of right foot, came in from home after worsening left lower extremity ulcer, according to her who is a nurse he has a history of chronic bilateral lower extremity ulcer, initially he used to follow Dr. Reynoso in wound care clinic, but has not seen him in the last 6 months, as the was taking care of his chronic B/L lower extremity wounds, today she brought her to the hospital As advised by the primary care physician, because he recently developed left great toe wound according to the it started on last and has progressively gotten worsened, currently it has a large necrotic base.Patient also had an episode of fever at home last . #Altered mental status, currently alert oriented x2, following all commands, likely , underlying dementia, but will do carotid artery ultrasound, CT of the head, monitor mentation #Sepsis secondary to bilateral lower extremity wound (left great toe base necrotic gangrene ) Wound cultures in the past have grown MRSA Patient has H/O fever at home , elevated WBC, extensive lower extremity wound. the patient had dry gangrene over her first metatarsal head plantarly with necrosis extending to the level of the mid first metatarsal shaft laterally and medially to the medial aspect of the big toe. Status post amputation of left f irst ray by Dr. Mensah 1 blood culture positive for MRSA, second negative so far Repeat blood cultures pending C-reactive protein 121, Pro-Lc 0.3 Continue Vanco and Zosyn for now Decreased DP PT nonpalpable bilaterally we will do ultrasound, has a history of PAD, creatinine is 2.2, discussed with cardiology about considering peripheral angiogram, due to concerns for poor healing and antibiotic penetration, Orthopedic surgery on consult Interventional cardiology on consult Diabetic diet #MRSA bacteremia, antibiotics as above, would recommend 6 weeks of IV antibiotics #Acute on chronic anemia, -Hemoglobin 7.7 status post 1 unit PRBC, elevated BU -Denies bloody or black stools -Iron low at 11, ferritin given infection is 144, percent saturation 6.7, TIBC 152 -Hemoccult positive -Has evidence of slow GI bleed -For now hold Xarelto -Monitor hemoglobin -Monitor for bloody black stools -Protonix 40 IV twice daily, Carafate #Peripheral arterial disease -Ultrasound in October 2020 -1. Significant spectral Doppler waveform dampening is identified in the left lower extremity infrapopliteal arterial runoff consistent with significant peripheral arterial disease changes. 2. Mild severity spectral Doppler waveform dampening is identified in the right lower extremity infrapopliteal arterial runoff consistent with mild severity peripheral arterial disease changes. 3. No significant waveform abnormalities above the knees. -No surgical intervention for peripheral arterial disease, medical management with antiplatelet and anticoagulant therapy -DP PT pulses nonpalpable -We will repeat ultrasound -Interventional cardiology on consult for intervention, creatinine 2.1 -Issue is is that as she has concerns for GI bleed, transfusion dependent anemia, long-term use of Xarelto might be relatively contraindicated which would worsen his peripheral arterial disease #History of atrial fibrillation: Currently rate is well controlled EKG Xarelto on hold -Elevated INR at 2.0, likely sec to Xarelto continue to monitor #TANIKA on CKD stage III: Likely prerenal TANIKA, possibly complicated by sepsis Currently serum creatinine: 2.2 Baseline serum creatinine: 1.7-2 IV hydration with NS Monitor BMP Intake output charting #Diabetes: SSI Monitor fingerstick glucose #Hypertension: Blood pressure currently been controlled #CODE STATUS: Full code #DVT prophylaxis: On heparin Attestations Medical Necessity Statement*: Patient requires hospitalization for sepsis secondary to MRSA, left lower extremity wound infection, requires IV antibiotics, peripheral arterial disease Coding Level of Care Code Acute Actuarial Science Professor for Chg Fwd Diagnoses Ulcer of left foot L97.528 Non-pressure ulcer stage: with other severity Venous stasis ulcers of both lower extremities I83.019; I83.029; L97.919; L97.929 Atrial fibrillation I48.19 Atrial fibrillation type: persistent (not longstanding) Venous insufficiency of both lower extremities I87.2 Chronic kidney disease (CKD) stage G3a/A1, moderately decreased glomerular filtration rate (GFR) between 45-59 mL/min/1.73 square meter and albuminuria creatinine ratio less than 30 mg/g N18.31 Hypertension I10 Hypertension type: essential hypertension Type 2 diabetes mellitus E11.52; Z79.4 Diabetes mellitus complication detail: with peripheral angiopathy with gangrene Diabetes mellitus complication status: with circulatory complication Diabetes mellitus intermodal customer service insulin use: with correction use Sepsis A41.9 MRSA bacteremia R78.81; B95.62
--- NOTE | 2021-07-13 15:55 | P.PN_ITS ---
Subjective Subjective: Interval history: No specific complaints. Vitals/I&O/Wt Last Vital Signs Temp 97.5 F L 07/13/21 12:00 Pulse 77 07/13/21 12:00 Resp 18 07/13/21 12:00 BP 125/73 07/13/21 12:00 Pulse Ox 97 07/13/21 12:00 07/13/21 07/13/21 07/13/21 06:59 14:59 22:59 Intake Total 50 / 2550.000 620 / 620 Output Total 500 / 500 Balance 50 / 2075.000 120 / 120 Physical Exam Narrative: EXAM NARRATIVE: Left foot dressing removed. Vascularity of surgical bed is marginal but I see obvious necrotic or infcted tissue. Data : 07/13/21 05:40 07/13/21 05:40 Micro: Microbiology 07/10/21 19:25 Blood Culture - Preliminary Blood Methicillin Resis Staph Aureus 07/12/21 10:16 Blood Culture - Preliminary Blood NEGATIVE TO DATE 07/12/21 10:13 Blood Culture - Preliminary Blood NEGATIVE TO DATE 07/13/21 02:15 Occult Blood (FIT) - Final Stool - Stool Aspirate A&P Assessment and plan (1) Gangrene of left foot: I cannot see a significant burden of infection. The vascularity of the extremity is poor. Unfortunately his soft tissues even into his leg are less than ideal and it may be difficult even to salvage a below-knee amputation if this fails. I agree with vascular work-up to try to improve perfusion in the extremity. The patient can follow-up with wound care for local measures. If the foot remains viable salvage of the foot could be possible. I am not really optimistic at this point. Status: Acute Attestations Medical Necessity Statement*: As per medicine Coding Level of Care Code Acute Machine Operator Assistant for [facility] Betty Diagnoses Gangrene of left foot I96
[2021-07-13 16:00] VITALS: BP 129/88; PULSE 78; RESP 18; TEMP 36.3; O2SAT 94
[2021-07-13] MEDS: HYDROcodone-acetaminophen 5-325 mg Tablet PO (16:47)
[2021-07-13 17:14] LABS: Glucose Point of Care 200 mg/dL (70-110)
[2021-07-13 20:00] VITALS: BP 129/64; PULSE 62; RESP 18; TEMP 36.7; O2SAT 93
[2021-07-13] MEDS: vancomycin 750 MG in sodium chloride 0.9% 250 ML 250 MG IV (20:39)
--- NOTE | 2021-07-13 20:45 | PC.NURSE ---
Shift report received from Leandra PEÑA. Patient in bed sleeping. Dressing L foot D/I drainage noted. IV patent infusing NS at 50mL/hr. No s/s of pain or discomfort. No needs noted at this time.
[2021-07-13 22:00] LABS: Glucose Point of Care 128 mg/dL (70-110)
[2021-07-14] VITALS (7 sets, daily range): BP systolic 153–172; BP diastolic 71–83; PULSE 63–75; RESP 16–19; TEMP 36.4–36.9; O2SAT 93–97
[2021-07-14 05:10] LABS: Basophils % 0.3 %; Eosinophils # 0.1 10^3/uL (0.0-0.8); Eosinophils % 0.9 %; Hematocrit 27.9 % (42.0-52.0); Hemoglobin 8.3 g/dL (11.7-16.6); Lymphocytes # 1.1 10^3/uL (0.8-4.8); Lymphocytes % 10.4 %; Mean Corpuscular HGB Conc 29.7 g/dL (30.0-36.0); Mean Corpuscular Hemoglobin 26.2 pg (28.0-34.0); Mean Platelet Volume 8.7 fL (7.4-10.4); Monocytes # 0.6 10^3/uL (0.2-0.9); Monocytes % 5.6 %; Neutrophils # 9.03 10^3/uL (1.8-7.7); Neutrophils % 82.1 %; Nucleated Red Blood Cells % 0 %; Platelet Count 224 10^3/cmm (130-400); Red Blood Count 3.17 10^6/uL (4.1-5.3); Red Cell Distribution Width 17.6 % (12.1-15.1)
[2021-07-14 05:28] LABS: Alanine Aminotransferase 39 U/L (0-41); Albumin Level 2.1 g/dL (3.5-5.2); Alkaline Phosphatase 322 IU/L (40-130); Anion Gap 13.2 (5-19); Aspartate Amino Transferase 33 U/L (0-40); Blood Urea Nitrogen 69 mg/dL (8-23); C Reactive Protein 100.7 mg/L (0.0-4.9); Calcium 7.8 mg/dL (8.5-10.5); Carbon Dioxide 22 mmol/L (22-29); Chloride 108 mmol/L (98-107); Globulin 4.3 g/dL (1.3-4.6); Glucose 102 mg/dL (65-115); Magnesium 2.3 mg/dL (1.7-2.3); Osmolality Calculated 308 mOsm/kg (285-295); Phosphorus 2.3 mg/dL (2.5-4.5); Potassium 4.2 mmol/L (3.5-5.1); Sodium 139 mmol/L (136-145); Total Bilirubin 0.3 mg/dL (0.15-1.2); Total Protein 6.4 g/dL (6.6-8.7)
[2021-07-14 05:34] LABS: Procalcitonin 0.27 ng/mL (0-0.5)
[2021-07-14 06:48] LABS: Glucose Point of Care 109 mg/dL (70-110)
[2021-07-14] MEDS: sucralfate 1 gm Tablet PO ×3 (06:48→20:41)
[2021-07-14] MEDS: sodium chloride 0.9% 1,000 ML 80 ML IV (07:49)
[2021-07-14] MEDS: docusate sodium 100 mg Capsule PO (07:49)
[2021-07-14] MEDS: atorvastatin 40 mg Tablet 20 MG PO (07:49)
[2021-07-14] MEDS: pantoprazole 40 mg SDV IVP ×2 (07:49→21:30)
[2021-07-14] MEDS: piperacillin-tazobactam 3.375 GM in sodium chloride 0.9% (plus) 50 ML IV ×2 (08:10→16:31)
[2021-07-14] MEDS: heparin 5,000 unit/mL INJ 1 mL 5000 UNIT SUBCUT ×2 (10:24→23:09)
[2021-07-14] MEDS: cloNIDine 0.1 mg Tablet PO ×2 (10:24→23:08)
[2021-07-14] MEDS: insulin lispro 100 unit/1 mL SUBCUT ×2 (11:23→16:59)
[2021-07-14 11:43] LABS: Glucose Point of Care 190 mg/dL (70-110)
--- NOTE | 2021-07-14 12:24 | P.CONIM_ITS ---
Providers/Reason For Consult Consulting Physician/Specialty*: General Surgery Dr. Lopez Reason for Consult*: Anemia GI bleed Attending Physician: Juliano David MD Primary Care Provider: Jose Patiño MD History of Present Illness History of Present Illness Lazara Cleary is a 75 year old male with history of significant peripheral vascular disease who underwent amputation of left first ray 3 days ago. Patient is due for attempt at revascularization of lower extremity in couple of days with the plan for starting anticoagulation since he also has atrial fibrillation. Patient was noted to be FOBT positive. The patient denies abdominal pain, nausea, vomiting, loss of appetite, change in bowel habits, blood in stools, weight loss, constipation or diarrhea. The patient has no family history of colon cancer and has never had a colonoscopy before. He denies any history of PUD. No hematemesis, hematochezia or melena. Review of Systems General: Reports: 10 or more systems reviewed and unremarkable except in HPI and below Medications/Allergies Home Medications Medication Instructions Recorded Confirmed Last Taken Type ferrous sulfate 325 mg (65 mg 325 mg PO BID 10/04/20 07/11/21 10/28/20 History iron) tablet,delayed release pantoprazole 40 mg tablet,delayed 40 mg PO QAM 10/04/20 07/11/21 10/28/20 History release tramadol 50 mg tablet 50 mg PO DAILY PRN #30 tab 03/29/21 07/11/21 Unknown Rx galantamine 24 mg 24 hr 24 mg PO QAM #30 cap 04/07/21 07/11/21 Unknown Rx capsule,extended release lisinopril 20 mg tablet 20 mg PO QAM 04/07/21 07/11/21 Unknown History metformin 1,000 mg tablet 500 mg PO BID #90 tab 05/15/21 07/11/21 Unknown Rx Levemir FlexTouch U-100 Insuln 10 unit SUBCUT BID 07/11/21 07/11/21 Unknown History ascorbic acid (vitamin C) [Vitamin 500 mg PO BID 07/11/21 07/11/21 Unknown History C] atorvastatin 20 mg PO BEDTIME 07/11/21 07/11/21 Unknown History citalopram 20 mg PO QAM 07/11/21 07/11/21 Unknown History furosemide See Rx Instructions .ROUTE .COMPLEX 07/11/21 07/11/21 Unknown History hydralazine 25 mg PO BID 07/11/21 07/11/21 Unknown History insulin aspart U-100 [Novolog See Rx Instructions .ROUTE .COMPLEX 07/11/21 07/11/21 Unknown History U-100 Insulin aspart] metolazone 5 mg PO DAILY PRN 07/11/21 07/11/21 Unknown History rivaroxaban [Xarelto] 15 mg PO QPM 07/11/21 07/11/21 Unknown History Allergies Allergy/AdvReac Type Severity Reaction Status Date / Time No Known Allergies Allergy Verified 07/11/21 10:41 Current Medications Generic Name Dose Route Start Last Admin Trade Name Freq PRN Reason Stop Dose Admin Hydrocodone Bitart/Acetaminophen 1 - 2 tab 07/11/21 15:02 07/13/21 16:47 Hydrocodone-Acetaminophen 5-325 Mg Tablet PO 1 tab Q4H PRN Administration BREAKTHROUGH PAIN Atorvastatin Calcium 20 mg 07/11/21 09:00 07/14/21 07:49 Atorvastatin 40 Mg Tablet PO 20 mg DAILY ANDREAS Administration Clonidine HCl 0.1 mg 07/14/21 10:15 07/14/21 10:24 Clonidine 0.1 Mg Tablet PO 0.1 mg Q12H ANDREAS Administration Docusate Sodium 100 mg 07/12/21 12:30 07/14/21 07:49 Docusate Sodium 100 Mg Capsule PO 100 mg BID ANDREAS Administration Heparin Sodium (Porcine) 5,000 unit 07/13/21 22:30 07/14/21 10:24 Heparin 5,000 Unit/Ml Inj 1 Ml SUBCUT 5,000 unit Q12H ANDREAS Administration Vancomycin HCl 750 mg/ Sodium 250 mls @ 250 mls/hr 07/11/21 19:30 07/13/21 21:39 Chloride IV Infused Q24H ANDREAS Infusion Piperacillin Sod/Tazobactam 50 mls @ 12.5 mls/hr 07/13/21 17:00 07/14/21 08:10 Sod 3.375 gm/ Sodium Chloride IV 12.5 mls/hr Q8H ANDREAS Administration Protocol Insulin Detemir 10 unit 07/13/21 10:00 07/14/21 07:49 Insulin Detemir 100 Units/1 Ml SUBCUT 10 unit Q12H ANDREAS Administration Insulin Human Lispro 0 unit 07/11/21 08:00 07/14/21 11:23 Insulin Lispro 100 Unit/1 Ml SUBCUT 4 unit TIDWM ANDREAS Administration Protocol Pantoprazole Sodium 40 mg 07/11/21 09:30 07/14/21 07:49 Pantoprazole 40 Mg Sdv IVP 40 mg Q12H ANDREAS Administration Polyethylene Glycol 17 gm 07/12/21 12:30 07/14/21 08:06 Polyethylene Glycol 3350 Pkt 17 Gm PO Not Given DAILY ANDREAS Sucralfate 1 gm 07/11/21 11:00 07/14/21 10:24 Sucralfate 1 Gm Tablet PO 1 gm AC&BEDTIME ANDREAS Administration PFSH Acute PFSH: Medical History Anemia Atrial fibrillation Chronic kidney disease (CKD) stage G3a/A1, moderately decreased glomerular filtration rate (GFR) between 45-59 mL/min/1.73 square meter and albuminuria creatinine ratio less than 30 mg/g Diabetes Gangrene of toe of right foot GERD (gastroesophageal reflux disease) History of abdominal hernia Hypercholesteremia Hypertension Sepsis Type 2 diabetes mellitus Venous insufficiency of both lower extremities Surgical History Amputation of fifth toe of left foot History of amputation of toe History of appendectomy History of foot surgery Family History Other Stroke Social History Smoking and tobacco status: never smoked Alcohol intake: never Vitals/I&O/Wt Last Vital Signs Temp 97.9 F 07/14/21 11:52 Pulse 72 07/14/21 11:52 Resp 18 07/14/21 11:52 BP 167/78 07/14/21 11:52 Pulse Ox 94 07/14/21 11:52 07/13/21 07/14/21 07/14/21 22:59 06:59 14:59 Intake Total 1909 / 0 350 / 2930 290 / 290 Output Total 300 / 800 450 / 450 Balance 1909 50 / 2129 -160 / -160 Weight last 48 hrs Weight 199 lb 3.2 oz Physical Exam Narrative: EXAM NARRATIVE: HEENT: Normocephalic Eye: Sclera /conjunctiva normal Respiratory and chest: Bilateral clear breath sounds on auscultation Cardiovascular: Normal S1 and S2 heart sounds Abdomen: Soft to palpation Neurological: Oriented to place person and time Skin: Intact, no lesions appreciated on gross exam Data Micro: Micro: Microbiology 07/10/21 19:25 Blood Culture - Pr eliminary Blood Methicillin Res is Staph Aureus 07/12/21 10:16 Blood Culture - Pr eliminary Blood NEGATIVE TO NAPOLEON E 07/12/21 10:13 Blood Culture - Pr eliminary Blood NEGATIVE TO NAPOLEON E A&P Assessment and plan (1) Anemia: 75-year-old male with history of atrial fibrillation, peripheral vascular disease who needs to be on long-term anticoagulation but was noted to be FOBT positive as well as anemic and has never had a EGD or colonoscopy before. Clear liquid diet N.p.o. after midnight Plan for EGD/colonoscopy under MAC tomorrow Procedure, risks, benefits and alternatives have been discussed with the patient who wishes to proceed with surgery. Status: Acute Qualifiers: Anemia type: iron deficiency Iron deficiency anemia type: other iron deficiency Qualified Code(s): D50.8 - Other iron deficiency anemias Consult Attestations Medical Necessity Statement: As per attending physician Coding Level of Care Code Acute Spring Manufacturing Set Up Technician for Chg Fwd Diagnoses Anemia D50.8 Anemia type: iron deficiency Iron deficiency anemia type: other iron deficiency
--- NOTE | 2021-07-14 14:38 | PC.CHAP ---
Pastoral Care Encounter/Spiritual Assessment Type of Contact [] Declined gas mask inspector visit [] Patient/Family/Request visit [] Outpatient visit [xx] Follow-up visit [] Physician referral [] Code/Alert [xx] Routine visit [] Staff referral [] Actively dying [] Patient sleeping [] Family support [] [] Out of room [] Palliative care [] [] Receiving care in room [] Pre-surgical visit [] Trauma [] Long length of stay [] ICU visit [] Other: Relational/Emotional Strength [xx] Patient feels connected with others/family/visitors/staff [] Distress [] Loneliness/isolation [] Abandonment Spirituality of Patient [xx] Person of Adriana [] Attends Amish of their Adriana [xx] Believes in Prayer [xx] Reads Bible or Lutheran materials [] There are Spiritual issues to be addressed Preparation Operator Interventions [xx] Prayer [xx] Active listening [xx] Non-anxious presence [] Spiritual/emotional support [] Crisis/trauma care [] Spiritual counseling [] Bereavement support [] Provided bereavement packet [xx] Provided Bible/devotional materials [] Provided toy/stuffed animal, coloring book to patient or family member [] Provided Communion [] Anointing/[place] [] Salvation [xx] Completed spiritual assessment [] Other: Impact on Illness or Injury [] Angry [] Fearful [] Anxious [] Often cries [] Exhaustion [] Unable to work [] Unable to attend cheondoism [] Unable to walk/stand [] Unable to read [] Unable to drive [] Unable to eat/drink [] Unable to sleep [] Unable to be with family [] Patient intubated [] Other: Summary Patient was sitting up and stated he was feeling much better. He has a great sense of humor and was a delight to visit. Time spent with patient 5 minutes
--- NOTE | 2021-07-14 15:36 | PM.PN ---
Subjective Subjective: Interval history: Patient was seen this morning, he sitting up in a chair, he is eating breakfast, tells me he is feeling well, no nausea, no vomiting, no chest pain, no bloody or black stools, I discussed my concerns for his lower limb left, peripheral vascular disease, the need for surgical intervention to improve blood flow and surgical outcome, he agrees to this, in addition I discussed his anemia, and that as he is going to be on blood thinners long-term we need to figure out a source of his bleeding, as the Xarelto has been stopped, and if he were to intervene on his peripheral vascular disease he will be on some sort of blood thinner for some period of time and if were to bleed he would have complications, thus it is better for us to find his source of bleeding now, he agrees to this In the afternoon I also discussed this with patient's who is a nurse, discussed patient's left lower extremity wound, his MRSA positive blood cultures, the requirement of IV antibiotics for least 6 weeks, his peripheral arterial disease that requires surgical intervention to improve his surgical outcome, however what is happening even medical interventions is his anemia and his Hemoccult positive stools concerning for GI bleed, plan is to do an EGD tomorrow morning to find a source of bleeding, thus then we can proceed to consider surgical intervention for his peripheral arterial disease, nonetheless he is going to have to be on some sort of antiplatelet or anticoagulant therapy long-term for his peripheral arterial disease and his atrial fibrillation, in addition his creatinine has significantly improved to 1.9, she voiced understanding, all questions answered, Vitals/I&O/Wt Last Vital Signs Temp 97.9 F 07/14/21 11:52 Pulse 72 07/14/21 11:52 Resp 18 07/14/21 11:52 BP 167/78 07/14/21 11:52 Pulse Ox 94 07/14/21 11:52 07/14/21 07/14/21 07/14/21 06:59 14:59 22:59 Intake Total 350 / 2880 1070.667 / 1070.667 Output Total 300 / 800 450 / 450 Balance 50 / 2080 620.667 / 620.667 Weight last 48 hrs Weight 90.356 kg Physical Exam Const: COMMON NORMALS: no acute distress ORIENTATION/CONSCIOUSNESS: Yes awake, Yes oriented to person and Yes oriented to place; not oriented to time Resp: COMMON NORMALS: normal respiratory effort, No retractions, No use of accessory muscles and clear to auscultation bilaterally AUSCULTATION: clear to auscultation bilaterally Cardio: COMMON NORMALS: regular rate, regular rhythm, S1 normal heart sound present and S2 normal heart sound present RATE: regular rate RHYTHM: regular rhythm HEART SOUNDS: S1 normal heart sound present and S2 normal heart sound present GI: COMMON NORMALS: Normal to inspection, nondistended, normoactive bowel sounds present, Soft to palpation and non-tender PALPATION: Yes Soft to palpation Extremity: COMMON NORMALS: no pedal edema NARRATIVE EXTREMITY EXAM: Left lower extremity, wrapped and bandaged, Kerlix Left dahl, superficial ulcer, wrapped Right dahl, superficial ulcer, wrapped Neuro: SENSORIUM/ORIENTATION: Yes oriented to person, Yes oriented to place and No oriented to time Psych: COMMON NORMALS: mental status grossly normal Data : 07/14/21 04:59 07/14/21 04:59 Micro: Microbiology 07/10/21 19:25 Blood Culture - Preliminary Blood Methicillin Resis Staph Aureus 07/12/21 10:16 Blood Culture - Preliminary Blood NEGATIVE TO DATE 07/12/21 10:13 Blood Culture - Preliminary Blood NEGATIVE TO DATE A&P Assessment and plan (1) Ulcer of left foot: Status: Acute Qualifiers: Non-pressure ulcer stage: with other severity Qualified Code(s): L97.528 - Non-pressure chronic ulcer of other part of left foot with other specified severity (2) Venous stasis ulcers of both lower extremities: Status: Acute (3) Atrial fibrillation: Status: Acute Qualifiers: Atrial fibrillation type: persistent (not longstanding) Qualified Code(s): I48.19 - Other persistent atrial fibrillation (4) Venous insufficiency of both lower extremities: Status: Acute (5) Chronic kidney disease (CKD) stage G3a/A1, moderately decreased glomerular filtration rate (GFR) between 45-59 mL/min/1.73 square meter and albuminuria creatinine ratio less than 30 mg/g: Status: Acute (6) Hypertension: Status: Acute Qualifiers: Hypertension type: essential hypertension Qualified Code(s): I10 - Essential (primary) hypertension (7) Type 2 diabetes mellitus: Status: Acute Qualifiers: Diabetes mellitus complication detail: with peripheral angiopathy with gangrene Diabetes mellitus complication status: with circulatory complication Diabetes mellitus shelter insulin use: with buttermilk drier operator use Qualified Code(s): E11.52 - Type 2 diabetes mellitus with diabetic peripheral angiopathy with gangrene; Z79.4 - terminal block assembler (current) use of insulin (8) Sepsis: Status: Acute (9) MRSA bacteremia: Status: Acute Additional A&P Information Lazara Cleary is a 75 year old male with past medical history of, hypertension , diabetes, CKD ) stage G3a/A1, atrial fibrillation on Xarelto,HFpEF, Venous insufficiency of both lower extremities, Gangrene of toe of right foot, came in from home after worsening left lower extremity ulcer, according to her who is a nurse he has a history of chronic bilateral lower extremity ulcer, initially he used to follow Dr. Reynoso in wound care clinic, but has not seen him in the last 6 months, as the was taking care of his chronic B/L lower extremity wounds, today she brought her to the hospital As advised by the primary care physician, because he recently developed left great toe wound according to the it started on last and has progressively gotten worsened, currently it has a large necrotic base.Patient also had an episode of fever at home last . #Altered mental status, intermittent, back to baseline, has underlying dementia, currently alert oriented x2, following all commands, likely , underlying dementia, carotid artery bilateral ICA stenosis less than 50%, CT of the head no acute stroke, monitor mentation #Sepsis secondary to bilateral lower extremity wound (left great toe base necrotic gangrene ) Wound cultures in the past have grown MRSA Patient has H/O fever at home , elevated WBC, extensive lower extremity wound. the patient had dry gangrene over her first metatarsal head plantarly with necrosis extending to the level of the mid first metatarsal shaft laterally and medially to the medial aspect of the big toe. 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 Mensah 1 blood culture positive for MRSA, second negative so far Repeat blood cultures negative so far C-reactive protein 121, Pro-Lc 0.3 Continue Vanco and Zosyn for now Decreased DP PT nonpalpable bilaterally, peripheral arterial ultrasounds report pending, has a history of PAD, creatinine is 1.9, discussed with cardiology about considering peripheral angiogram, due to concerns for poor healing and antibiotic penetration, Orthopedic surgery on consult Interventional cardiology on consult Diabetic diet #MRSA bacteremia, antibiotics as above, would recommend 6 weeks of IV antibiotics, PICC line to be placed, 6 weeks of IV vancomycin 750 mg IV every 24 hours #Acute on chronic anemia, -Hemoglobin 8.3 status post 1 unit PRBC, elevated BUN over 90 -Denies bloody or black stools -Iron low at 11, ferritin given infection is 144, percent saturation 6.7, TIBC 152 -Hemoccult positive -Has evidence of slow GI bleed -For now hold Xarelto -Monitor hemoglobin -Monitor for bloody black stools -Protonix 40 IV twice daily, Carafate -General surgery on consult for EGD tomorrow morning -Issue is is that as he needs to be on long-term anticoagulation for his A. fib, peripheral arterial disease surgically intervening on his peripheral arterial disease will in addition require long-term antiplatelet therapy of a stent were to be placed, and if he has an ongoing GI bleed this would increase risk of life-threatening bleeding #Peripheral arterial disease -Ultrasound in October 2020 -1. Significant spectral Doppler waveform dampening is identified in the left lower extremity infrapopliteal arterial runoff consistent with significant peripheral arterial disease changes. 2. Mild severity spectral Doppler waveform dampening is identified in the right lower extremity infrapopliteal arterial runoff consistent with mild severity peripheral arterial disease changes. 3. No significant waveform abnormalities above the knees. -No surgical intervention for peripheral arterial disease, medical management with antiplatelet and anticoagulant therapy -DP PT pulses nonpalpable -Repeat ultrasound report pending -Interventional cardiology on consult for intervention, creatinine 1.9 -Issue is is that as she has concerns for GI bleed, transfusion dependent anemia, long-term use of Xarelto might be relatively contraindicated which would worsen his peripheral arterial disease #History of atrial fibrillation: Currently rate is well controlled EKG Xarelto on hold -Elevated INR at 2.0, likely sec to Xarelto continue to monitor -Likely will discontinue Xarelto on discharge, switch to Eliquis #TANIKA on CKD stage III: Likely prerenal TANIKA, possibly complicated by sepsis Currently serum creatinine: 1.9 Baseline serum creatinine: 1.7-2 IV hydration with NS Monitor BMP Intake output charting #Diabetes: SSI Add Levemir 10 units every 12 hours Monitor fingerstick glucose #Hypertension: Blood pressure currently been controlled #CODE STATUS: Full code #DVT prophylaxis: On heparin Attestations Medical Necessity Statement*: Patient requires hospitalization for MRSA bacteremia, sepsis secondary to left lower limb ulcer, peripheral vascular disease, GI bleed Coding Level of Care Code 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[employer] Diagnoses Ulcer of left foot L97.528 Non-pressure ulcer stage: with other severity Venous stasis ulcers of both lower extremities I83.019; I83.029; L97.919; L97.929 Atrial fibrillation I48.19 Atrial fibrillation type: persistent (not longstanding) Venous insufficiency of both lower extremities I87.2 Chronic kidney disease (CKD) stage G3a/A1, moderately decreased glomerular filtration rate (GFR) between 45-59 mL/min/1.73 square meter and albuminuria creatinine ratio less than 30 mg/g N18.31 Hypertension I10 Hypertension type: essential hypertension Type 2 diabetes mellitus E11.52; Z79.4 Diabetes mellitus complication detail: with peripheral angiopathy with gangrene Diabetes mellitus complication status: with circulatory complication Diabetes mellitus shelter insulin use: with buttermilk drier operator use Sepsis A41.9 MRSA bacteremia R78.81; B95.62
[2021-07-14] MEDS: peg /e-lyte soln 4,000 mL Btl 4000 ML PO (16:31)
[2021-07-14 16:55] LABS: Glucose Point of Care 255 mg/dL (70-110)
[2021-07-14 19:21] LABS: Vancomycin Trough 17.2 ug/mL (10-15)
[2021-07-14] MEDS: vancomycin 750 MG in sodium chloride 0.9% 250 ML 250 MG IV (20:39)
[2021-07-14 23:04] LABS: Glucose Point of Care 179 mg/dL (70-110)
[2021-07-15] VITALS (8 sets, daily range): BP systolic 137–183; BP diastolic 68–80; PULSE 59–76; RESP 15–20; TEMP 36.5–36.9; O2SAT 92–97
[2021-07-15] MEDS: piperacillin-tazobactam 3.375 GM in sodium chloride 0.9% (plus) 50 ML IV ×3 (02:49→17:25)
[2021-07-15] MEDS: Fleet Enema 133 mL Enema PR (05:08)
[2021-07-15 05:27] LABS: Basophils % 0.2 %; Eosinophils # 0.1 10^3/uL (0.0-0.8); Eosinophils % 1.2 %; Hematocrit 25.9 % (42.0-52.0); Hemoglobin 7.6 g/dL (11.7-16.6); Lymphocytes # 1.1 10^3/uL (0.8-4.8); Lymphocytes % 11.5 %; Mean Corpuscular HGB Conc 29.3 g/dL (30.0-36.0); Mean Corpuscular Hemoglobin 25.6 pg (28.0-34.0); Mean Corpuscular Volume 87.2 fl (80-94); Mean Platelet Volume 8.8 fL (7.4-10.4); Monocytes # 0.7 10^3/uL (0.2-0.9); Monocytes % 7.1 %; Neutrophils # 7.33 10^3/uL (1.8-7.7); Neutrophils % 79.2 %; Nucleated Red Blood Cells % 0 %; Platelet Count 234 10^3/cmm (130-400); Red Blood Count 2.97 10^6/uL (4.1-5.3); Red Cell Distribution Width 17.9 % (12.1-15.1); White Blood Count 9.3 10^3/uL (4.0-10.0)
[2021-07-15 05:48] LABS: Procalcitonin 0.24 ng/mL (0-0.5)
[2021-07-15 06:01] LABS: Alanine Aminotransferase 30 U/L (0-41); Alkaline Phosphatase 271 IU/L (40-130); Anion Gap 15.9 (5-19); Aspartate Amino Transferase 31 U/L (0-40); Blood Urea Nitrogen 64 mg/dL (8-23); C Reactive Protein 88.7 mg/L (0.0-4.9); Calcium 8.5 mg/dL (8.5-10.5); Carbon Dioxide 20 mmol/L (22-29); Chloride 109 mmol/L (98-107); Globulin 4.6 g/dL (1.3-4.6); Glucose 80 mg/dL (65-115); Magnesium 2.3 mg/dL (1.7-2.3); Osmolality Calculated 309 mOsm/kg (285-295); Phosphorus 2.5 mg/dL (2.5-4.5); Potassium 3.9 mmol/L (3.5-5.1); Sodium 141 mmol/L (136-145); Total Bilirubin 0.3 mg/dL (0.15-1.2); Total Protein 6.6 g/dL (6.6-8.7)
[2021-07-15 06:50] LABS: Glucose Point of Care 107 mg/dL (70-110)
--- NOTE | 2021-07-15 07:14 | P.PN_ITS ---
Subjective Subjective: Interval history: Patient is feeling okay today. No pain. No fevers or chills. No shortness of breath or chest pain. Awaiting EGD today. He has not been vomiting any blood. Medications: Reviewed: Yes Medication Review Details: Current Medications Acetaminophen (Acetaminophen 325 Mg Tablet) 650 mg PO Q6H PRN PRN Reason: Mild/Mod Pain Or Temp >/= 101 Hydrocodone Bitart/Acetaminophen (Hydrocodone-Acetaminophen 5-325 Mg Tablet) 1 - 2 tab PO Q4H PRN PRN Reason: BREAKTHROUGH PAIN Last Admin: 07/13/21 16:47 Dose: 1 tab Documented by: Atorvastatin Calcium (Atorvastatin 40 Mg Tablet) 20 mg PO DAILY [facility] Last Admin: 07/14/21 07:49 Dose: 20 mg Documented by: Bisacodyl (Bisacodyl 5 Mg Tablet) 10 mg PO DAILY PRN; Protocol PRN Reason: Constipation (see protocol) Citalopram Hydrobromide (Citalopram 20 Mg Tablet) 20 mg PO DAILY [facility] Clonidine HCl (Clonidine 0.1 Mg Tablet) 0.1 mg PO Q12H [facility] Last Admin: 07/14/21 23:08 Dose: 0.1 mg Documented by: Dextrose (Dextrose 50% Syringe 50 Ml) 25 ml IVP ONCE PRN; Protocol PRN Reason: hypoglycemia protocol Dextrose (Dextrose 50% Syringe 50 Ml) 50 ml IVP PRN PRN; Protocol PRN Reason: hypoglycemia protocol Docusate Sodium (Docusate Sodium 100 Mg Capsule) 100 mg PO BID [facility] Last Admin: 07/14/21 16:34 Dose: Not Given Documented by: Glucagon (Glucagon 1 Mg/Ml Inj 1 Ml) 1 mg IM ONCE PRN; Protocol PRN Reason: Adult Acute Hypoglycemia Prot. Heparin Sodium (Porcine) (Heparin 5,000 Unit/Ml Inj 1 Ml) 5,000 unit SUBCUT Q12H [facility] Last Admin: 07/14/21 23:09 Dose: 5,000 unit Documented by: Dextrose (D5w) 500 mls @ 100 mls/hr IV ONCE PRN; Protocol PRN Reason: Adult Acute Hypoglycemia Prot Vancomycin HCl 750 mg/ Sodium (Chloride) 250 mls @ 250 mls/hr IV Q24H [facility] Last Infusion: 07/14/21 22:06 Dose: Infused Documented by: Piperacillin Sod/Tazobactam (Sod 3.375 gm/ Sodium Chloride) 50 mls @ 12.5 mls/hr IV Q8H [facility]; Protocol Last Infusion: 07/15/21 06:41 Dose: Infused Documented by: Insulin Detemir (Insulin Detemir 100 Units/1 Ml) 5 unit SUBCUT Q12H [facility] Last Admin: 07/14/21 23:08 Dose: 5 unit Documented by: Insulin Human Lispro (Insulin Lispro 100 Unit/1 Ml) 0 unit SUBCUT TIDWM [facility]; Protocol Last Admin: 07/14/21 16:59 Dose: 10 unit Documented by: Ondansetron HCl (Ondansetron 2 Mg/Ml Sdv 2 Ml) 4 mg IVP Q8H PRN PRN Reason: vomiting, or N/V if npo Pantoprazole Sodium (Pantoprazole 40 Mg Sdv) 40 mg IVP Q12H [facility] Last Admin: 07/14/21 21:30 Dose: 40 mg Documented by: Polyethylene Glycol (Polyethylene Glycol 3350 Pkt 17 Gm) 17 gm PO DAILY [facility] Last Admin: 07/14/21 08:06 Dose: Not Given Documented by: Sodium Phosphate (Fleet Enema 133 Ml Enema) 133 ml ND PRN PRN PRN Reason: Clear stools Last Admin: 07/15/21 05:08 Dose: 133 ml Documented by: Sucralfate (Sucralfate 1 Gm Tablet) 1 gm PO AC&BEDTIME [facility] Last Admin: 07/15/21 06:25 Dose: Not Given Documented by: Tramadol HCl (Tramadol 50 Mg Tablet) 50 mg PO DAILY PRN PRN Reason: pain Vitals/I&O/Wt Last Vital Signs Temp 98.0 F 07/15/21 05:51 Pulse 74 07/15/21 05:51 Resp 17 07/15/21 05:51 BP 153/75 07/15/21 05:51 Pulse Ox 92 07/15/21 05:51 07/14/21 07/15/21 07/15/21 22:59 06:59 14:59 Intake Total 300 / 1420.667 50 / 1420.667 Output Total 425 / 875 Balance -125 / 545.667 50 / 545.667 Weight last 48 hrs Weight 199 lb 3.2 oz Physical Exam Narrative: EXAM NARRATIVE: General: No acute distress, Alert. Well nourished. Heart: Regular rate and rhythm. No murmurs, rubs or gallops. Normal capillary refill. Lungs: Clear to auscultation. No wheezes, rhonchi or rales. Abdomen: Positive bowel sounds. Non-tender, non-distended. No hepatosplenomegaly. No gaurding. Extremities: No clubbing, cyanosis, or edema. Negative Sander's Data : 07/15/21 04:39 07/15/21 04:39 A&P Assessment and plan (1) MRSA bacteremia: Status: Acute (2) Gangrene of left foot: Status: Acute (3) Ulcer of left foot: Status: Acute Qualifiers: Non-pressure ulcer stage: with other severity Qualified Code(s): L97.528 - Non-pressure chronic ulcer of other part of left foot with other specified severity (4) Atrial fibrillation: Status: Acute Qualifiers: Atrial fibrillation type: persistent (not longstanding) Qualified Code(s): I48.19 - Other persistent atrial fibrillation (5) Chronic kidney disease (CKD) stage G3a/A1, moderately decreased glomerular filtration rate (GFR) between 45-59 mL/min/1.73 square meter and albuminuria creatinine ratio less than 30 mg/g: Status: Acute (6) Hypertension: Status: Acute Qualifiers: Hypertension type: essential hypertension Qualified Code(s): I10 - Essential (primary) hypertension (7) Type 2 diabetes mellitus: Status: Acute Qualifiers: Diabetes mellitus complication detail: with peripheral angiopathy with gangrene Diabetes mellitus complication status: with circulatory complication Diabetes mellitus cartography supervisor insulin use: with mcfp use Qualified Code(s): E11.52 - Type 2 diabetes mellitus with diabetic peripheral angiopathy with gangrene; Z79.4 - field service specialist (current) use of insulin (8) Anemia: Status: Acute Qualifiers: Anemia type: iron deficiency Iron deficiency anemia type: other iron deficiency Qualified Code(s): D50.8 - Other iron deficiency anemias Additional A&P Information - 75-year-old gentleman who came in with gangrene of his left great toe subsequently requiring amputation on 07/11/2021. Patient is followed by Ortho for this. Seems to be doing well. Appears to be a consequence of his diabetes and severe peripheral vascular disease. Plan is for possible angiogram of that leg on Saturday by cardiology. Overall seems stable. - Sepsis most likely from his wounds. Growing out MRSA. On vancomycin and Zosyn. Awaiting PICC line placement for 6 weeks of IV antibiotics. -Anemia from presumed GI bleed. Transfused 1 unit on 07/15/2021. Hemoglobin is dropped back down some today but stable. Has been on Protonix and Carafate. General surgery has been consulted. Looks like an EGD and colonoscopy are planned today. -Peripheral arterial disease -interventional cardiology has been consulted and will continue with their recommendations. -A. fib -stable, Xarelto has been held due to his GI bleeding. Continue to monitor this closely. -Diabetes and chronic kidney disease -stable. Continue to monitor. Creatinine is down to 1.7 today. Attestations Medical Necessity Statement*: This is a 75-year-old gentleman with multiple medical problems including recent left toe amputation and sepsis and GI bleed requiring continued IV treatments and inpatient monitoring. 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 [facility] Diagnoses MRSA bacteremia R78.81; B95.62 Gangrene of left foot I96 Ulcer of left foot L97.528 Non-pressure ulcer stage: with other severity Atrial fibrillation I48.19 Atrial fibrillation type: persistent (not longstanding) Chronic kidney disease (CKD) stage G3a/A1, moderately decreased glomerular filtration rate (GFR) between 45-59 mL/min/1.73 square meter and albuminuria creatinine ratio less than 30 mg/g N18.31 Hypertension I10 Hypertension type: essential hypertension Type 2 diabetes mellitus E11.52; Z79.4 Diabetes mellitus complication detail: with peripheral angiopathy with gangrene Diabetes mellitus complication status: with circulatory complication Diabetes mellitus cartography supervisor insulin use: with mcfp use Anemia D50.8 Anemia type: iron deficiency Iron deficiency anemia type: other iron deficiency
--- NOTE | 2021-07-15 07:49 | P.PN_ITS ---
Subjective Subjective: Interval history: Patient is awake and alert, did not drink the GoLytely and only had 1 formed bowel movement and received an enema this morning Vitals/I&O/Wt Last Vital Signs Temp 98.0 F 07/15/21 05:51 Pulse 74 07/15/21 05:51 Resp 17 07/15/21 05:51 BP 153/75 07/15/21 05:51 Pulse Ox 92 07/15/21 05:51 07/14/21 07/15/21 07/15/21 22:59 06:59 14:59 Intake Total 300 / 1420.667 50 / 1420.667 Output Total 425 / 875 Balance -125 / 545.667 50 / 545.667 Weight last 48 hrs Weight 199 lb 3.2 oz Physical Exam Narrative: EXAM NARRATIVE: Abdomen: Soft, nondistended, nontender Data : 07/15/21 04:39 07/15/21 04:39 A&P Assessment and plan (1) Anemia: 75-year-old male with history of atrial fibrillation, peripheral vascular disease who needs to be on long-term anticoagulation but was noted to be FOBT positive as well as anemic and has never had a EGD or colonoscopy before. He did not do his bowel prep last night. Clear liquid diet today after ADA diet for breakfast N.p.o. after midnight Plan [place] [facility] [place] Procedure, risks, benefits and alternatives have been discussed with the patient who wishes to proceed with surgery. 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
[2021-07-15] MEDS: atorvastatin 40 mg Tablet 20 MG PO (09:55)
[2021-07-15] MEDS: heparin 5,000 unit/mL INJ 1 mL 5000 UNIT SUBCUT ×2 (09:56→23:33)
[2021-07-15] MEDS: docusate sodium 100 mg Capsule PO ×2 (09:56→17:26)
[2021-07-15] MEDS: polyethylene glycol 3350 Pkt 17 gm PO (09:56)
[2021-07-15] MEDS: pantoprazole 40 mg SDV IVP ×2 (10:03→21:47)
[2021-07-15] MEDS: cloNIDine 0.1 mg Tablet PO ×2 (10:08→23:33)
[2021-07-15] MEDS: sucralfate 1 gm Tablet PO ×3 (10:09→20:35)
[2021-07-15 11:35] LABS: Glucose Point of Care 259 mg/dL (70-110)
[2021-07-15] MEDS: insulin lispro 100 unit/1 mL SUBCUT ×2 (12:45→17:30)
--- NOTE | 2021-07-15 13:52 | PC.SOCIAL ---
IMM update IMM updated with patient and family at bedside. Verbalized an understanding. Copy Pg 2 provided. Initialled, dated, timed, and placed in chart.
--- NOTE | 2021-07-15 14:05 | PC.NURSE ---
Patient sleeping in his chair. Patient arouses to name. Full cup of Golytely poured on ice and given to patient. Instructed patient that he needs to drink the entire container which is about a couple cups an hour. Patient verbalized understanding.
[2021-07-15 17:26] LABS: Glucose Point of Care 262 mg/dL (70-110)
[2021-07-15] MEDS: vancomycin 750 MG in sodium chloride 0.9% 250 ML 250 MG IV (20:28)
[2021-07-15 20:41] LABS: Glucose Point of Care 113 mg/dL (70-110)
--- NOTE | 2021-07-15 22:30 | PC.NURSE ---
Patient had a copious amount of liquid stool after doing a bowel cleanse that heavily saturated all of patient's dressings, including his surgical incision. Patient was cleaned and wounds were thoroughly irrigated with normal saline to wash out any remaining stool. New dressings were put on and reinforced x2 to prevent wound beds from becoming saturated with stool had patient had another liquid bowel movement.
[2021-07-16] VITALS (12 sets, daily range): BP systolic 103–172; BP diastolic 49–82; PULSE 50–73; RESP 11–18; TEMP 36.1–36.6; O2SAT 93–100
[2021-07-16] MEDS: piperacillin-tazobactam 3.375 GM in sodium chloride 0.9% (plus) 50 ML IV ×2 (01:02→17:55)
[2021-07-16] MEDS: Fleet Enema 133 mL Enema PR (04:19)
[2021-07-16 05:30] LABS: Basophils % 0.2 %; Eosinophils # 0.1 10^3/uL (0.0-0.8); Eosinophils % 1.4 %; Hematocrit 26.1 % (42.0-52.0); Hemoglobin 7.8 g/dL (11.7-16.6); Lymphocytes # 1.2 10^3/uL (0.8-4.8); Lymphocytes % 12.3 %; Mean Corpuscular HGB Conc 29.9 g/dL (30.0-36.0); Mean Corpuscular Hemoglobin 25.1 pg (28.0-34.0); Mean Corpuscular Volume 83.9 fl (80-94); Mean Platelet Volume 8.8 fL (7.4-10.4); Monocytes # 0.5 10^3/uL (0.2-0.9); Monocytes % 5.3 %; Neutrophils # 8.03 10^3/uL (1.8-7.7); Nucleated Red Blood Cells % 0 %; Platelet Count 244 10^3/cmm (130-400); Red Blood Count 3.11 10^6/uL (4.1-5.3); Red Cell Distribution Width 17.4 % (12.1-15.1)
[2021-07-16 05:50] LABS: Alanine Aminotransferase 27 U/L (0-41); Alkaline Phosphatase 284 IU/L (40-130); Anion Gap 15.4 (5-19); Aspartate Amino Transferase 46 U/L (0-40); Blood Urea Nitrogen 56 mg/dL (8-23); Calcium 7.6 mg/dL (8.5-10.5); Carbon Dioxide 22 mmol/L (22-29); Chloride 110 mmol/L (98-107); Globulin 4.3 g/dL (1.3-4.6); Glucose 71 mg/dL (65-115); Osmolality Calculated 312 mOsm/kg (285-295); Potassium 3.4 mmol/L (3.5-5.1); Sodium 144 mmol/L (136-145); Total Bilirubin 0.3 mg/dL (0.15-1.2); Total Protein 6.3 g/dL (6.6-8.7)
[2021-07-16 06:27] LABS: Glucose Point of Care 86 mg/dL (70-110)
--- NOTE | 2021-07-16 07:21 | PC.NURSE ---
Patient to GI lab at this time.
[2021-07-16] MEDS: sodium chloride 0.9% 1,000 ML 30 ML IV (07:49)
--- NOTE | 2021-07-16 08:10 | P.ANESASSM_ITS ---
Pre-Anesthetic Assessment Pre-Anesthetic Assessment: Height/Weight: Height 1.83 m Weight 139.57 kg Temp Pulse Resp BP Pulse Ox 97.6 F 64 16 172/81 95 07/16/21 07:34 07/16/21 07:34 07/16/21 07:34 07/16/21 07:34 07/16/21 07:34 Preop Diagnosis: gi bleed Proposed Procedure: Operation Date: 07/11/21 12:00 Proposed Procedures p Amputation left first ray(Left) - Presley Mensah MD Operation Date: 07/16/21 08:00 Proposed Procedures p EGD(Not Applicable) - Nima Lopez MD s Colonoscopy(Not Applicable) - Nima Lopez MD Was Beta Dave taken within 24 hours: N/A Social: Social History: No alcohol and No tobacco Exam: Pre-Anes Outpt Exam: alert, oriented x 3 and clear to auscultation bilaterally Airway: Submandibular: WNL Cervical ROM: WNL MP: 2 Dentition: False CV/HEM: CV/HEM: Afib, Anemia, HTN and PVD : : Chronic renal Insufficiency GI: GI: GERD Metabolic: Metabolic: DM Anesthetic Plan: ASA status: 3 Anesthesia: MAC Risk of > 500 ml blood loss (7ml/kg in children): No Medications/Allergies Current Medications: Current Medications Generic Name Dose Route Start Last Admin Trade Name Freq PRN Reason Stop Dose Admin Atorvastatin Calci um 20 mg 07/11/21 09:00 07/15/21 09:55 Atorvastatin 40 Mg Tablet PO 20 mg DAILY ANDREAS Administration Clonidine HCl 0.1 mg 07/14/21 10:15 07/15/21 23:33 Clonidine 0.1 Mg Tablet PO 0.1 mg Q12H ANDREAS Administration Docusate Sodium 100 mg 07/12/21 12:30 07/15/21 17:26 Docusate Sodium 100 Mg Capsule PO 100 mg BID ANDREAS Administration Heparin Sodium (Po rcine) 5,000 unit 07/13/21 22:30 07/15/21 23:33 Heparin 5,000 Un it/Ml Inj 1 Ml SUBCUT 5,000 unit Q12H ANDREAS Administration Vancomycin HCl 750 mg/ Sodium 250 mls @ 250 mls /hr 07/11/21 19:30 07/15/21 21:40 Chloride IV Infused Q24H ANDREAS Infusion Piperacillin Sod/T azobactam 50 mls @ 12.5 mls /hr 07/13/21 17:00 07/16/21 06:51 Sod 3.375 gm/ So dium Chloride IV Infused Q8H ANDREAS Infusion Protocol Sodium Chloride 1,000 mls @ 30 ml s/hr 07/16/21 07:30 07/16/21 07:49 Sodium Chloride 0.9% IV 07/17/21 07:29 30 mls/hr .Q24H ANDREAS Administration Insulin Detemir 5 unit 07/14/21 22:00 07/15/21 23:21 Insulin Detemir 100 Units/1 Ml SUBCUT Not Given Q12H ANDREAS Insulin Human Lisp ro 0 unit 07/11/21 08:00 07/15/21 17:30 Insulin Lispro 1 00 Unit/1 Ml SUBCUT 8 unit TIDWM ANDREAS Administration Protocol Pantoprazole Sodiu m 40 mg 07/11/21 09:30 07/15/21 21:47 Pantoprazole 40 Mg Sdv IVP 40 mg Q12H ANDREAS Administration Polyethylene Glyco l 17 gm 07/12/21 12:30 07/15/21 09:56 Polyethylene Gly col 3350 Pkt 17 Gm PO 17 gm DAILY ANDREAS Administration Sodium Phosphate 133 ml 07/14/21 18:49 07/16/21 04:19 Fleet Enema 133 Ml Enema [place] 133 ml PRN PRN Administration Clear stools Sucralfate 1 gm 07/11/21 11:00 07/16/21 06:37 Sucralfate 1 Gm Tablet PO Not Given AC&BEDTIME ANDREAS PFSH Anesthesia PFSH: Medical History Anemia Atrial fibrillation Chronic kidney disease (CKD) stage G3a/A1, moderately decreased glomerular filtration rate (GFR) between 45-59 mL/min/1.73 square meter and albuminuria creatinine ratio less than 30 mg/g Diabetes Gangrene of toe of right foot GERD (gastroesophageal reflux disease) History of abdominal hernia Hypercholesteremia Hypertension Sepsis Type 2 diabetes mellitus Venous insufficiency of both lower extremities Surgical History Amputation of fifth toe of left foot History of amputation of toe History of appendectomy History of foot surgery Family History Other Stroke Social History Smoking and tobacco status: never smoked Alcohol intake: never Data Anesthesia CBC & Chem 7: 07/16/21 05:02 07/16/21 05:02 Other Labs: Laboratory Results - last 48 hr 07/14/21 07/14/21 07/14/21 11:15 16:38 18:45 WBC RBC Hgb Hct MCV MCH MCHC RDW Plt Count MPV Neut % (Auto) Lymph % (Auto) [place] % (Auto) Eos % (Auto) Baso % (Auto) Neut # (Auto) Lymph # (Auto) [place] # (Auto) Eos # (Auto) Baso # (Auto) Nucleated RBC % (auto) Nucleated RBCs # Sodium Potassium Chloride Carbon Dioxide Anion Gap BUN Creatinine GFR Calculation Glucose POC Glucose 190 H 255 H Calculated Osmolality Calcium Phosphorus Magnesium Total Bilirubin AST ALT Alkaline Phosphatase C-Reactive Protein Total Protein Albumin Globulin Procalcitonin Vancomycin Trough 17.2 H 07/14/21 07/15/21 07/15/21 20:56 04:39 04:39 WBC 9.3 RBC 2.97 L Hgb 7.6 L Hct 25.9 L MCV 87.2 MCH 25.6 L MCHC 29.3 L RDW 17.9 H Plt Count 234 MPV 8.8 Neut % (Auto) 79.2 Lymph % (Auto) 11.5 [place] % (Auto) 7.1 Eos % (Auto) 1.2 Baso % (Auto) 0.2 Neut # (Auto) 7.33 Lymph # (Auto) 1.1 [place] # (Auto) 0.7 Eos # (Auto) 0.1 Baso # (Auto) 0.0 Nucleated RBC % (auto) 0 Nucleated RBCs # 0.0 Sodium 141 Potassium 3.9 Chloride 109 H Carbon Dioxide 20 L Anion Gap 15.9 BUN 64 H Creatinine 1.7 H GFR Calculation Not Reportable Glucose 80 POC Glucose 179 H Calculated Osmolality 309 H Calcium 8.5 Phosphorus 2.5 Magnesium 2.3 Total Bilirubin 0.3 AST 31 ALT 30 Alkaline Phosphatase 271 H C-Reactive Protein 88.7 H Total Protein 6.6 Albumin 2.0 L Globulin 4.6 Procalcitonin 0.24 Vancomycin Trough 07/15/21 07/15/21 07/15/21 06:47 11:32 17:07 WBC RBC Hgb Hct MCV MCH MCHC RDW Plt Count MPV Neut % (Auto) Lymph % (Auto) [place] % (Auto) Eos % (Auto) Baso % (Auto) Neut # (Auto) Lymph # (Auto) [place] # (Auto) Eos # (Auto) Baso # (Auto) Nucleated RBC % (auto) Nucleated RBCs # Sodium Potassium Chloride Carbon Dioxide Anion Gap BUN Creatinine GFR Calculation Glucose POC Glucose 107 259 H 262 H Calculated Osmolality Calcium Phosphorus Magnesium Total Bilirubin AST ALT Alkaline Phosphatase C-Reactive Protein Total Protein Albumin Globulin Procalcitonin Vancomycin Trough 07/15/21 07/16/21 07/16/21 20:31 05:02 05:02 WBC 10.0 RBC 3.11 L Hgb 7.8 L Hct 26.1 L MCV 83.9 MCH 25.1 L MCHC 29.9 L RDW 17.4 H Plt Count 244 MPV 8.8 Neut % (Auto) 80.0 Lymph % (Auto) 12.3 [place] % (Auto) 5.3 Eos % (Auto) 1.4 Baso % (Auto) 0.2 Neut # (Auto) 8.03 H Lymph # (Auto) 1.2 [place] # (Auto) 0.5 Eos # (Auto) 0.1 Baso # (Auto) 0.0 Nucleated RBC % (auto) 0 Nucleated RBCs # 0.0 Sodium 144 Potassium 3.4 L Chloride 110 H Carbon Dioxide 22 Anion Gap 15.4 BUN 56 H Creatinine 1.8 H GFR Calculation Not Reportable Glucose 71 POC Glucose 113 H Calculated Osmolality 312 H Calcium 7.6 L Phosphorus Magnesium Total Bilirubin 0.3 AST 46 H ALT 27 Alkaline Phosphatase 284 H C-Reactive Protein Total Protein 6.3 L Albumin 2.0 L Globulin 4.3 Procalcitonin Vancomycin Trough 07/16/21 06:15 WBC RBC Hgb Hct MCV MCH MCHC RDW Plt Count MPV Neut % (Auto) Lymph % (Auto) [place] % (Auto) Eos % (Auto) Baso % (Auto) Neut # (Auto) Lymph # (Auto) [place] # (Auto) Eos # (Auto) Baso # (Auto) Nucleated RBC % (auto) Nucleated RBCs # Sodium Potassium Chloride Carbon Dioxide Anion Gap BUN Creatinine GFR Calculation Glucose POC Glucose 86 Calculated Osmolality Calcium Phosphorus Magnesium Total Bilirubin AST ALT Alkaline Phosphatase C-Reactive Protein Total Protein Albumin Globulin Procalcitonin Vancomycin Trough Micro: Microbiology 07/10/21 19:30 Blood Culture - Final Blood NO GROWTH AFTER 5 DAYS Cardiac Studies: Echocardiogram Ultrasound 10/29/20
--- NOTE | 2021-07-16 08:50 | ANE.PACU2 ---
Inpatient post-anesthesia follow up: Airway intact: Yes Vital signs: Temperature 97 F Pulse Rate 50 Respiratory Rate 11 Blood Pressure 103/49 Pulse Oximetry 100 Oxygen Delivery Me thod Oxymask Oxygen Flow Rate 9 Fraction of Inspir ed Oxygen Hydration adequate: Yes Nausea and vomiting: No Pain level: 1 Mental status: Baseline
--- NOTE | 2021-07-16 09:45 | PM.PN ---
Subjective Subjective: Interval history: Patient is doing okay this morning. He just got done with his colonoscopy and EGD for GI bleeding. No obvious source for this was found. No chest pains or shortness of breath at this time. No fevers or chills. Medications: Reviewed: Yes Medication Review Details: Current Medications Acetaminophen (Acetaminophen 325 Mg Tablet) 650 mg PO Q6H PRN PRN Reason: Mild/Mod Pain Or Temp >/= 101 Hydrocodone Bitart/Acetaminophen (Hydrocodone-Acetaminophen 5-325 Mg Tablet) 1 - 2 tab PO Q4H PRN PRN Reason: BREAKTHROUGH PAIN Last Admin: 07/13/21 16:47 Dose: 1 tab Documented by: Atorvastatin Calcium (Atorvastatin 40 Mg Tablet) 20 mg PO DAILY [facility] Last Admin: 07/14/21 07:49 Dose: 20 mg Documented by: Bisacodyl (Bisacodyl 5 Mg Tablet) 10 mg PO DAILY PRN; Protocol PRN Reason: Constipation (see protocol) Citalopram Hydrobromide (Citalopram 20 Mg Tablet) 20 mg PO DAILY [facility] Clonidine HCl (Clonidine 0.1 Mg Tablet) 0.1 mg PO Q12H [facility] Last Admin: 07/14/21 23:08 Dose: 0.1 mg Documented by: Dextrose (Dextrose 50% Syringe 50 Ml) 25 ml IVP ONCE PRN; Protocol PRN Reason: hypoglycemia protocol Dextrose (Dextrose 50% Syringe 50 Ml) 50 ml IVP PRN PRN; Protocol PRN Reason: hypoglycemia protocol Docusate Sodium (Docusate Sodium 100 Mg Capsule) 100 mg PO BID [facility] Last Admin: 07/14/21 16:34 Dose: Not Given Documented by: Glucagon (Glucagon 1 Mg/Ml Inj 1 Ml) 1 mg IM ONCE PRN; Protocol PRN Reason: Adult Acute Hypoglycemia Prot. Heparin Sodium (Porcine) (Heparin 5,000 Unit/Ml Inj 1 Ml) 5,000 unit SUBCUT Q12H [facility] Last Admin: 07/14/21 23:09 Dose: 5,000 unit Documented by: Dextrose (D5w) 500 mls @ 100 mls/hr IV ONCE PRN; Protocol PRN Reason: Adult Acute Hypoglycemia Prot Vancomycin HCl 750 mg/ Sodium (Chloride) 250 mls @ 250 mls/hr IV Q24H [facility] Last Infusion: 07/14/21 22:06 Dose: Infused Documented by: Piperacillin Sod/Tazobactam (Sod 3.375 gm/ Sodium Chloride) 50 mls @ 12.5 mls/hr IV Q8H [facility]; Protocol Last Infusion: 07/15/21 06:41 Dose: Infused Documented by: Insulin Detemir (Insulin Detemir 100 Units/1 Ml) 5 unit SUBCUT Q12H [facility] Last Admin: 07/14/21 23:08 Dose: 5 unit Documented by: Insulin Human Lispro (Insulin Lispro 100 Unit/1 Ml) 0 unit SUBCUT TIDWM [facility]; Protocol Last Admin: 07/14/21 16:59 Dose: 10 unit Documented by: Ondansetron HCl (Ondansetron 2 Mg/Ml Sdv 2 Ml) 4 mg IVP Q8H PRN PRN Reason: vomiting, or N/V if npo Pantoprazole Sodium (Pantoprazole 40 Mg Sdv) 40 mg IVP Q12H [facility] Last Admin: 07/14/21 21:30 Dose: 40 mg Documented by: Polyethylene Glycol (Polyethylene Glycol 3350 Pkt 17 Gm) 17 gm PO DAILY [facility] Last Admin: 07/14/21 08:06 Dose: Not Given Documented by: Sodium Phosphate (Fleet Enema 133 Ml Enema) 133 ml ME PRN PRN PRN Reason: Clear stools Last Admin: 07/15/21 05:08 Dose: 133 ml Documented by: Sucralfate (Sucralfate 1 Gm Tablet) 1 gm PO AC&BEDTIME [facility] Last Admin: 07/15/21 06:25 Dose: Not Given Documented by: Tramadol HCl (Tramadol 50 Mg Tablet) 50 mg PO DAILY PRN PRN Reason: pain Vitals/I&O/Wt Last Vital Signs Temp 97 F L 07/16/21 08:41 Pulse 65 07/16/21 08:52 Resp 16 07/16/21 08:52 BP 125/76 07/16/21 08:52 Pulse Ox 93 07/16/21 08:52 07/15/21 07/16/21 07/16/21 22:59 06:59 14:59 Intake Total 289.792 / 1120.000 60.208 / 1120.000 200 / 200 Output Total 300 / 700 Balance -10.208 / 420.000 60.208 / 420.000 200 / 200 Weight last 48 hrs Weight 307 lb 11.2 oz Physical Exam Narrative: EXAM NARRATIVE: General: No acute distress, Alert. Well nourished. Heart: Regular rate and rhythm. No murmurs, rubs or gallops. Normal capillary refill. Lungs: Clear to auscultation. No wheezes, rhonchi or rales. Abdomen: Positive bowel sounds. Non-tender, non-distended. No hepatosplenomegaly. No gaurding. Extremities: No clubbing, cyanosis, or edema. Negative Sander's. His left great toe amputation looks like it is doing okay at this time. No purulent drainage noted. Data : 07/16/21 05:02 07/16/21 05:02 Micro: Microbiology 07/10/21 19:30 Blood Culture - Final Blood NO GROWTH AFTER 5 DAYS A&P Assessment and plan (1) MRSA bacteremia: Status: Acute (2) Gangrene of left foot: Status: Acute (3) Ulcer of left foot: Status: Acute Qualifiers: Non-pressure ulcer stage: with other severity Qualified Code(s): L97.528 - Non-pressure chronic ulcer of other part of left foot with other specified severity (4) Atrial fibrillation: Status: Acute Qualifiers: Atrial fibrillation type: persistent (not longstanding) Qualified Code(s): I48.19 - Other persistent atrial fibrillation (5) Chronic kidney disease (CKD) stage G3a/A1, moderately decreased glomerular filtration rate (GFR) between 45-59 mL/min/1.73 square meter and albuminuria creatinine ratio less than 30 mg/g: Status: Acute (6) Hypertension: Status: Acute Qualifiers: Hypertension type: essential hypertension Qualified Code(s): I10 - Essential (primary) hypertension (7) Type 2 diabetes mellitus: Status: Acute Qualifiers: Diabetes mellitus complication detail: with peripheral angiopathy with gangrene Diabetes mellitus complication status: with circulatory complication Diabetes mellitus long-term insulin use: with long-term use Qualified Code(s): E11.52 - Type 2 diabetes mellitus with diabetic peripheral angiopathy with gangrene; Z79.4 - retirement (current) use of insulin (8) Anemia: Status: Acute Qualifiers: Anemia type: iron deficiency Iron deficiency anemia type: other iron deficiency Qualified Code(s): D50.8 - Other iron deficiency anemias Additional A&P Information - 75-year-old gentleman who came in with gangrene of his left great toe subsequently requiring amputation on 07/11/2021. Patient is followed by Ortho for this. Seems to be doing well. Appears to be a consequence of his diabetes and severe peripheral vascular disease. Plan is for possible angiogram of that leg on Saturday by cardiology. Overall seems stable. We will need some disposition plans made tomorrow. who is a former nurse is wanting to take him home. He is going to need wound care. - Sepsis most likely from his wounds. Growing out MRSA. On vancomycin and Zosyn. Awaiting PICC line placement for 6 weeks of IV antibiotics. -Anemia from presumed GI bleed. Transfused 1 unit on 07/15/2021. Hemoglobin is dropped back down some today but stable. Has been on Protonix and Carafate. General surgery has been consulted. EGD and colonoscopy were okay today. -Peripheral arterial disease -interventional cardiology has been consulted and will continue with their recommendations. -A. fib -stable, Xarelto has been held due to his GI bleeding. Continue to monitor this closely. -Diabetes and chronic kidney disease -stable. Continue to monitor. Creatinine is down to 1.7 today. Attestations Medical Necessity Statement*: 75-year-old gentleman with severe peripheral vascular disease diabetes and a gangrenous left toe status post amputation with sepsis requiring continued IV treatments and monitoring in the inpatient setting. Coding Level of Care Code Acute Home Health Specialist for [facility] Diagnoses MRSA bacteremia R78.81; B95.62 Gangrene of left foot I96 Ulcer of left foot L97.528 Non-pressure ulcer stage: with other severity Atrial fibrillation I48.19 Atrial fibrillation type: persistent (not longstanding) Chronic kidney disease (CKD) stage G3a/A1, moderately decreased glomerular filtration rate (GFR) between 45-59 mL/min/1.73 square meter and albuminuria creatinine ratio less than 30 mg/g N18.31 Hypertension I10 Hypertension type: essential hypertension Type 2 diabetes mellitus E11.52; Z79.4 Diabetes mellitus complication detail: with peripheral angiopathy with gangrene Diabetes mellitus complication status: with circulatory complication 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
[2021-07-16] MEDS: sucralfate 1 gm Tablet PO ×3 (10:41→23:02)
[2021-07-16] MEDS: cloNIDine 0.1 mg Tablet PO (10:41)
[2021-07-16] MEDS: pantoprazole 40 mg SDV IVP ×2 (10:41→22:43)
[2021-07-16] MEDS: heparin 5,000 unit/mL INJ 1 mL 5000 UNIT SUBCUT ×2 (10:42→23:03)
[2021-07-16 11:10] LABS: Glucose Point of Care 83 mg/dL (70-110)
[2021-07-16] MEDS: acetaminophen 325 mg Tablet 650 MG PO (13:02)
--- NOTE | 2021-07-16 14:03 | P.PN_ITS ---
Subjective Subjective: Interval history: Patient tolerated bowel prep overnight, no significant bleeding per rectum Vitals/I&O/Wt Last Vital Signs Temp 97.8 F 07/16/21 12:00 Pulse 73 07/16/21 12:00 Resp 18 07/16/21 12:00 BP 132/61 07/16/21 12:00 Pulse Ox 94 07/16/21 12:00 07/15/21 07/16/21 07/16/21 22:59 06:59 14:59 Intake Total 289.792 / 1120.000 60.208 / 1120.000 320 / 320 Output Total 300 / 700 Balance -10.208 / 420.000 60.208 / 420.000 320 / 320 Weight last 48 hrs Weight 307 lb 11.2 oz Physical Exam Narrative: EXAM NARRATIVE: Abdomen: Soft Data : 07/16/21 05:02 07/16/21 05:02 Micro: Microbiology 07/10/21 19:30 Blood Culture - Final Blood NO GROWTH AFTER 5 DAYS A&P Assessment and plan (1) Anemia: 75-year-old male with history of atrial fibrillation, peripheral vascular disease who needs to be on long-term anticoagulation but was noted to be FOBT positive as well as anemic and has never had a EGD or colonoscopy before. Plan for EGD/colonoscopy under MAC today Procedure, risks, benefits and alternatives have been discussed with the patient who wishes to proceed with surgery. 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
[2021-07-16 17:02] LABS: Bacillus cereus group Not Detected (NOT DETECT); Bacillus subtillis group Not Detected (NOT DETECT); Corynebacterium Not Detected (NOT DETECT); Cutibacterium acnes (P.acnes) Not Detected (NOT DETECT); Enterococcus Not Detected (NOT DETECT); Enterococcus faecalis Not Detected (NOT DETECT); Enterococcus faecium Not Detected (NOT DETECT); Lactobacillus species Not Detected (NOT DETECT); Listeria Not Detected (NOT DETECT); Listeria monocytogenes Not Detected (NOT DETECT); Micrococcus Not Detected (NOT DETECT); Pan Candida Not Detected (NOT DETECT); Pan Gram-Negative Not Detected (NOT DETECT); Staphylococcus epidermidis Not Detected (NOT DETECT); Staphylococcus lugdunensis Not Detected (NOT DETECT); Staphylococcus species Detected (NOT DETECT); Streptococcus agalactiae Not Detected (NOT DETECT); Streptococcus anginosus group Not Detected (NOT DETECT); Streptococcus pneumoniae Not Detected (NOT DETECT); Streptococcus pyogenes Not Detected (NOT DETECT); Streptococcus species Not Detected (NOT DETECT); mecA Detected (NOT DETECT); mecC Not Detected (NOT DETECT)
[2021-07-16 17:06] LABS: Glucose Point of Care 255 mg/dL (70-110)
[2021-07-16] MEDS: insulin lispro 100 unit/1 mL SUBCUT (17:55)
[2021-07-16 21:42] LABS: Glucose Point of Care 257 mg/dL (70-110)
[2021-07-16] MEDS: vancomycin 750 MG in sodium chloride 0.9% 250 ML 250 MG IV (23:01)
[2021-07-17] VITALS (15 sets, daily range): BP systolic 152–205; BP diastolic 55–88; PULSE 54–75; RESP 16–18; TEMP 36.1–36.9; O2SAT 93–97
[2021-07-17] MEDS: piperacillin-tazobactam 3.375 GM in sodium chloride 0.9% (plus) 50 ML IV ×3 (01:13→16:58)
[2021-07-17] MEDS: sucralfate 1 gm Tablet PO ×4 (06:34→21:33)
[2021-07-17 06:42] LABS: Glucose Point of Care 195 mg/dL (70-110)
[2021-07-17] MEDS: cloNIDine 0.1 mg Tablet PO ×2 (08:46→21:32)
[2021-07-17] MEDS: docusate sodium 100 mg Capsule PO ×2 (08:46→17:50)
[2021-07-17] MEDS: atorvastatin 40 mg Tablet 20 MG PO (08:47)
[2021-07-17] MEDS: polyethylene glycol 3350 Pkt 17 gm PO (08:50)
[2021-07-17] MEDS: insulin lispro 100 unit/1 mL SUBCUT ×3 (08:55→17:50)
[2021-07-17] MEDS: heparin 5,000 unit/mL INJ 1 mL 5000 UNIT SUBCUT ×2 (08:56→21:32)
[2021-07-17] MEDS: pantoprazole 40 mg SDV IVP ×2 (08:57→21:33)
[2021-07-17 12:30] LABS: Glucose Point of Care 219 mg/dL (70-110)
--- NOTE | 2021-07-17 16:52 | PC.SOCIAL ---
IMM Updated Updated pt on IMM. No questions voiced. Provided pt a copy. Initialed, dated, & timed copy in chart.
--- NOTE | 2021-07-17 17:09 | P.PN_ITS ---
Subjective Subjective: Interval history: Hemoglobin 7.8. Continues to have wet-to-dry dressing on the lower extremity. Frustrated with being still in the hospital. Awaiting PICC line placement. Afebrile, hemodynamically stable, no acute overnight events. 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 Data : 07/16/21 05:02 07/16/21 05:02 Micro: Microbiology 07/10/21 19:25 Blood Culture - Final Blood Methicillin Resis Staph Aureus 07/12/21 10:16 Blood Culture - Final Blood NO GROWTH AFTER 5 DAYS 07/12/21 10:13 Blood Culture - Final Blood NO GROWTH AFTER 5 DAYS A&P Additional A&P Information Lazara Cleary is a 75 year old male with past medical history of, hypertension , diabetes, CKD ) stage G3a/A1, atrial fibrillation on Xarelto at home, HFpEF, Venous insufficiency of both lower extremities, Gangrene of toe of right foot, came in from home after worsening left lower extremity ulcer and gangrene s/p amputation now, currently with wet to try dressing. Hospital course c/b MRSA bacteremia, likely source to be infected ulcer, GI bleeding for which he is off XArelto at this time and anemia. #Altered mental status, now back at baseline. #Sepsis secondary to bilateral lower extremity wound Wound cultures in the past have grown MRSA patient had dry gangrene over her first metatarsal head plantarly with necrosis extending to the level of the mid first metatarsal shaft laterally and medially to the medial aspect of the big toe. 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 Mensah on 07/11 1 blood culture positive for MRSA Repeat blood cultures negative so far D/c Zosyn, continue vancomycin Severe infrapopliteal disease on intervention cardiology assessment. At this present time there was originally plans to perform cardiac cath with minimal contrast and possible stenting however the latter plan has now been delayed due to interim development of GI bleeding. Ideally patient would need to be on a combination of aspirin and anticoagulation, however at this present time it is a risky intervention. Given his hemoglobin of 7.8, will plan to transfuse him to bring him to a goal hemoglobin of greater than 8. Thereafter once 48 hours have passed since last endoscopy and there is no evidence of GI bleeding or further hemoglobin drop, will resume low-dose Eliquis 2.5 mg twice daily. Discussed with Dr. Méndez and his at bedside, that it would be prudent to monitor him closely over the next week with resumption of low-dose anticoagulation and then reassess his vascular status as an outpatient in the next 7 to 10 days. At this present time there is no evidence of repeat necrosis. Plans of delaying lower extremity intervention were additionally discussed with surgeon Dr. Mensah. For now reasonable to monitor over the next 7 to 10 days and reassess as outpatient regarding revascularization with resumption of low- dose anticoagulation. Patient currently has an open wound after recent amputation which we are doing wet-to-dry dressing at this time. Will need wound care at [facility] and additionally will also need to be established with wound care clinic ideally with vascular surgery Dr. Reynoso in addition to undergoing just wound care changes at home. #MRSA bacteremia, recommended 6 weeks of IV vancomycin, close trough monitoring. Awaiting PICC line to facilitate above. #Acute on chronic anemia, -Hemoglobin. 7.8, transfuse 1 unit PRBC. -Protonix 40 IV twice daily, Carafate -EGD performed, no signs of active bleeding, no ulcers on upper GI endoscopy, had a few polyps removed overnight. Wait 24 hours prior to resuming anticoagulation with Eliquis. #Peripheral arterial disease Plan as above #History of atrial fibrillation: Currently rate is well controlled EKG Xarelto on hold due to GI bleeding #TANIKA on CKD stage III: Likely prerenal TANIKA, possibly complicated by sepsis Baseline serum creatinine: 1.7-2 #Diabetes: SSI, Levemir 10 units every 12 hours #Hypertension: Blood pressure currently been controlled #CODE STATUS: Full code Attestations Medical Necessity Statement*: awaiting picc line placement, need for iv abx, start low dose a/c in next 24 hrs and monitor for signs of bleeding Coding Level of Care Code Acute Experimental Box Tester for [facility]
[2021-07-17] MEDS: sodium chloride 0.9% (100 ml) 100 ML 50 ML (18:12)
[2021-07-17 18:29] LABS: Glucose Point of Care 360 mg/dL (70-110)
[2021-07-17 21:38] LABS: Vancomycin Trough 18.3 ug/mL (10-15)
[2021-07-17 22:08] LABS: Glucose Point of Care 265 mg/dL (70-110)
[2021-07-17] MEDS: vancomycin 750 MG in sodium chloride 0.9% 250 ML 250 MG IV (23:07)
[2021-07-18] VITALS (9 sets, daily range): BP systolic 177–204; BP diastolic 61–106; PULSE 63–82; RESP 16–20; TEMP 36.7–36.9; O2SAT 91–96
[2021-07-18 01:28] LABS: Hematocrit 32.2 % (42.0-52.0); Hemoglobin 9.9 g/dL (11.7-16.6)
[2021-07-18] MEDS: sucralfate 1 gm Tablet PO ×4 (06:17→22:25)
[2021-07-18 07:11] LABS: Glucose Point of Care 146 mg/dL (70-110)
[2021-07-18] MEDS: pantoprazole 40 mg SDV IVP ×2 (08:14→22:25)
[2021-07-18] MEDS: atorvastatin 40 mg Tablet 20 MG PO (08:14)
[2021-07-18] MEDS: polyethylene glycol 3350 Pkt 17 gm PO (08:14)
[2021-07-18] MEDS: insulin lispro 100 unit/1 mL SUBCUT ×3 (08:14→17:45)
[2021-07-18] MEDS: docusate sodium 100 mg Capsule PO ×2 (08:14→17:44)
[2021-07-18 11:28] LABS: Glucose Point of Care 276 mg/dL (70-110)
[2021-07-18] MEDS: cloNIDine 0.1 mg Tablet PO ×2 (11:46→22:26)
[2021-07-18] MEDS: heparin 5,000 unit/mL INJ 1 mL 5000 UNIT SUBCUT ×2 (11:51→22:26)
--- NOTE | 2021-07-18 13:32 | XR_ITS ---
WS: [id number] CHEST XRAY TECHNIQUE: Portable chest. CLINICAL INFORMATION: PICC Placement COMPARISON: None. FINDINGS: Left PICC line with tip in the mid left brachiocephalic vein overlying the mediastinum. No visualized pneumothorax. Heart: Partially visualized cardiomegaly. Lungs: Lung apices are well aerated. Bones: Normal visualized bony structures. XR/XR chest 1V portable [id number] IMPRESSION: 1. Left PICC line with tip in the mid left brachiocephalic vein overlying the mediastinum 2. No visualized pneumothorax.
--- NOTE | 2021-07-18 14:01 | P.PN_ITS ---
Subjective Subjective: Interval history: Hemoglobin improved today at 9.9 after transfusion yesterday. Hemodynamically stable. Afebrile. Awaiting PICC line today. Vancomycin trough drawn yesterday at 18.3. In better spirits today. Medications: Reviewed: Yes Medication Review Details: Current Medications Acetaminophen (Acetaminophen 325 Mg Tablet) 650 mg PO Q6H PRN PRN Reason: Mild/Mod Pain Or Temp >/= 101 Hydrocodone Bitart/Acetaminophen (Hydrocodone-Acetaminophen 5-325 Mg Tablet) 1 - 2 tab PO Q4H PRN PRN Reason: BREAKTHROUGH PAIN Last Admin: 07/13/21 16:47 Dose: 1 tab Documented by: Atorvastatin Calcium (Atorvastatin 40 Mg Tablet) 20 mg PO DAILY [facility] Last Admin: 07/14/21 07:49 Dose: 20 mg Documented by: Bisacodyl (Bisacodyl 5 Mg Tablet) 10 mg PO DAILY PRN; Protocol PRN Reason: Constipation (see protocol) Citalopram Hydrobromide (Citalopram 20 Mg Tablet) 20 mg PO DAILY [facility] Clonidine HCl (Clonidine 0.1 Mg Tablet) 0.1 mg PO Q12H [facility] Last Admin: 07/14/21 23:08 Dose: 0.1 mg Documented by: Dextrose (Dextrose 50% Syringe 50 Ml) 25 ml IVP ONCE PRN; Protocol PRN Reason: hypoglycemia protocol Dextrose (Dextrose 50% Syringe 50 Ml) 50 ml IVP PRN PRN; Protocol PRN Reason: hypoglycemia protocol Docusate Sodium (Docusate Sodium 100 Mg Capsule) 100 mg PO BID [facility] Last Admin: 07/14/21 16:34 Dose: Not Given Documented by: Glucagon (Glucagon 1 Mg/Ml Inj 1 Ml) 1 mg IM ONCE PRN; Protocol PRN Reason: Adult Acute Hypoglycemia Prot. Heparin Sodium (Porcine) (Heparin 5,000 Unit/Ml Inj 1 Ml) 5,000 unit SUBCUT Q12H [facility] Last Admin: 07/14/21 23:09 Dose: 5,000 unit Documented by: Dextrose (D5w) 500 mls @ 100 mls/hr IV ONCE PRN; Protocol PRN Reason: Adult Acute Hypoglycemia Prot Vancomycin HCl 750 mg/ Sodium (Chloride) 250 mls @ 250 mls/hr IV Q24H [facility] Last Infusion: 07/14/21 22:06 Dose: Infused Documented by: Piperacillin Sod/Tazobactam (Sod 3.375 gm/ Sodium Chloride) 50 mls @ 12.5 mls/hr IV Q8H [facility]; Protocol Last Infusion: 07/15/21 06:41 Dose: Infused Documented by: Insulin Detemir (Insulin Detemir 100 Units/1 Ml) 5 unit SUBCUT Q12H [facility] Last Admin: 07/14/21 23:08 Dose: 5 unit Documented by: Insulin Human Lispro (Insulin Lispro 100 Unit/1 Ml) 0 unit SUBCUT TIDWM [facility]; Protocol Last Admin: 07/14/21 16:59 Dose: 10 unit Documented by: Ondansetron HCl (Ondansetron 2 Mg/Ml Sdv 2 Ml) 4 mg IVP Q8H PRN PRN Reason: vomiting, or N/V if npo Pantoprazole Sodium (Pantoprazole 40 Mg Sdv) 40 mg IVP Q12H [facility] Last Admin: 07/14/21 21:30 Dose: 40 mg Documented by: Polyethylene Glycol (Polyethylene Glycol 3350 Pkt 17 Gm) 17 gm PO DAILY [facility] Last Admin: 07/14/21 08:06 Dose: Not Given Documented by: Sodium Phosphate (Fleet Enema 133 Ml Enema) 133 ml AL PRN PRN PRN Reason: Clear stools Last Admin: 07/15/21 05:08 Dose: 133 ml Documented by: Sucralfate (Sucralfate 1 Gm Tablet) 1 gm PO AC&BEDTIME [facility] Last Admin: 07/15/21 06:25 Dose: Not Given Documented by: Tramadol HCl (Tramadol 50 Mg Tablet) 50 mg PO DAILY PRN PRN Reason: pain Vitals/I&O/Wt Last Vital Signs Temp 98.1 F 07/18/21 08:00 Pulse 82 07/18/21 11:16 Resp 18 07/18/21 11:16 BP 184/79 07/18/21 11:46 Pulse Ox 94 07/18/21 11:16 07/17/21 07/18/21 07/18/21 22:59 06:59 14:59 Intake Total 590 / 1920 250 / 2170 480 / 480 Output Total 350 / 650 Balance 240 / 1270 250 / 1520 480 / 480 Physical Exam Narrative: EXAM NARRATIVE: GEN: Awake, alert and oriented, no acute distress CVS: S1S2 N RS: CTA B/L Abd: Soft, nt/nd , bs+ HEDIS SPECIALIST: no focal neuro deficits Data : 07/18/21 01:23 07/16/21 05:02 Micro: Microbiology 07/10/21 19:25 Blood Culture - Final Blood Methicillin Resis Staph Aureus 07/12/21 10:16 Blood Culture - Final Blood NO GROWTH AFTER 5 DAYS 07/12/21 10:13 Blood Culture - Final Blood NO GROWTH AFTER 5 DAYS A&P Assessment and plan (1) Ulcer of left foot: Status: Acute Qualifiers: Non-pressure ulcer stage: with other severity Qualified Code(s): L97.528 - Non-pressure chronic ulcer of other part of left foot with other specified severity (2) Venous stasis ulcers of both lower extremities: Status: Acute (3) Atrial fibrillation: Status: Acute Qualifiers: Atrial fibrillation type: persistent (not longstanding) Qualified Code(s): I48.19 - Other persistent atrial fibrillation (4) Venous insufficiency of both lower extremities: Status: Acute (5) Chronic kidney disease (CKD) stage G3a/A1, moderately decreased glomerular filtration rate (GFR) between 45-59 mL/min/1.73 square meter and albuminuria creatinine ratio less than 30 mg/g: Status: Acute (6) Hypertension: Status: Acute Qualifiers: Hypertension type: essential hypertension Qualified Code(s): I10 - Essential (primary) hypertension (7) Type 2 diabetes mellitus: Status: Acute Qualifiers: Diabetes mellitus complication detail: with peripheral angiopathy with gangrene Diabetes mellitus complication status: with circulatory complication 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 hypertension , diabetes, CKD stage G3a/A1, atrial fibrillation on Xarelto at home, HFpEF, Venous insufficiency of both lower extremities, Gangrene of toe of right foot, came in from home after worsening left lower extremity ulcer and gangrene s/p amputation now, currently with wet to try dressing. Hospital course c/b MRSA bacteremia, likely source to be infected ulcer, GI bleeding for which he is off XArelto at this time and anemia. #Altered mental status, now back at baseline. #Sepsis secondary to bilateral lower extremity wound Wound cultures in the past have grown MRSA Patient had dry gangrene over her first metatarsal head plantar with necrosis extending to the level of the mid first metatarsal shaft laterally and medially to the medial aspect of the big toe.? 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 Peripheral angiogram delayed due to interim development of GI bleeding.? Ideally patient would need to be on a combination of aspirin and anticoagulation, however at this present time it is a risky intervention. Starting low dose a/c with Eliquis today with plan to follow-up with cardiology as outpatient in about 7 to 10 days. Please see detailed note from July 17 regarding the same. At this present time there is no evidence of repeat necrosis. Continue wet-to-dry dressings and arrange follow-up as outpatient with the wound care clinic. Discussed with Dr. Mensah. #MRSA bacteremia,? recommended 6 weeks of IV vancomycin, close trough monitoring.? Awaiting PICC line to facilitate above. #Acute on chronic anemia, -Hemoglobin. 7.8, transfused 1 unit PRBC on July 17, hemoglobin now at 9.9 -Protonix 40 IV twice daily, Carafate -EGD performed, no signs of active bleeding, no ulcers on upper GI endoscopy, had a few polyps removed.? Low-dose Eliquis starting tonight #Peripheral arterial disease Plan as above #History of atrial fibrillation: Currently rate is well controlled EKG Xarelto discontinued due to GI bleeding. Patient will now be on Eliquis 2.5 mg p.o. twice daily #TANIKA on CKD stage III: Likely prerenal TANIKA, possibly complicated by sepsis Baseline serum creatinine: 1.7-2 #Diabetes: SSI, Levemir 10 units every 12 hours #Hypertension: Blood pressure currently been controlled Dispo: Ongoing disposition planning, likely transition to SNF Attestations Medical Necessity Statement*: Needs ongoing admission for placement of PICC line, continuation of IV antibiotics, daily twice daily dressing changes Coding Level of Care Code Acute Draw Frame Runner for [facility] Fwd Diagnoses Ulcer of left foot L97.528 Non-pressure ulcer stage: with other severity Venous stasis ulcers of both lower extremities I83.019; I83.029; L97.919; L97.929 Atrial fibrillation I48.19 Atrial fibrillation type: persistent (not longstanding) Venous insufficiency of both lower extremities I87.2 Chronic kidney disease (CKD) stage G3a/A1, moderately decreased glomerular filtration rate (GFR) between 45-59 mL/min/1.73 square meter and albuminuria creatinine ratio less than 30 mg/g N18.31 Hypertension I10 Hypertension type: essential hypertension Type 2 diabetes mellitus E11.52; Z79.4 Diabetes mellitus complication detail: with peripheral angiopathy with gangrene Diabetes mellitus complication status: with circulatory complication Diabetes mellitus skilled nursing insulin use: with local company intermodal truck driver use Sepsis A41.9 MRSA bacteremia R78.81; B95.62
--- NOTE | 2021-07-18 16:09 | PC.NURSE ---
Notified Dr. Maxwell of patient Blood Pressure being 193/90.
--- NOTE | 2021-07-18 16:15 | PC.NURSE ---
Notified [facility] of patients PICC in left upper arm appears to be bleeding.
[2021-07-18 17:04] LABS: Glucose Point of Care 262 mg/dL (70-110)
[2021-07-18] MEDS: amlodipine 10 mg Tablet PO (17:44)
[2021-07-18 22:01] LABS: Glucose Point of Care 251 mg/dL (70-110)
[2021-07-18] MEDS: apixaban 5 mg Tablet 2.5 MG PO (22:24)
[2021-07-18] MEDS: hyDRALAzine 25 mg Tablet PO (22:25)
[2021-07-18] MEDS: vancomycin 750 MG in sodium chloride 0.9% 250 ML 250 MG IV (22:26)
[2021-07-19] VITALS (9 sets, daily range): BP systolic 155–179; BP diastolic 73–90; PULSE 68–83; RESP 16–18; TEMP 36.3–36.8; O2SAT 90–94
[2021-07-19 06:13] LABS: Basophils % 0.5 %; Eosinophils # 0.1 10^3/uL (0.0-0.8); Eosinophils % 1.5 %; Hematocrit 28.7 % (42.0-52.0); Hemoglobin 8.6 g/dL (11.7-16.6); Lymphocytes # 1.1 10^3/uL (0.8-4.8); Lymphocytes % 12.5 %; Mean Corpuscular Hemoglobin 25.3 pg (28.0-34.0); Mean Corpuscular Volume 84.4 fl (80-94); Mean Platelet Volume 8.9 fL (7.4-10.4); Monocytes # 0.5 10^3/uL (0.2-0.9); Monocytes % 5.1 %; Neutrophils # 6.96 10^3/uL (1.8-7.7); Neutrophils % 79.6 %; Nucleated Red Blood Cells % 0 %; Platelet Count 228 10^3/cmm (130-400); Red Cell Distribution Width 17.6 % (12.1-15.1); White Blood Count 8.7 10^3/uL (4.0-10.0)
[2021-07-19] MEDS: sucralfate 1 gm Tablet PO ×4 (06:31→21:19)
[2021-07-19 06:42] LABS: Alanine Aminotransferase 21 U/L (0-41); Albumin Level 2.1 g/dL (3.5-5.2); Alkaline Phosphatase 236 IU/L (40-130); Anion Gap 12.1 (5-19); Aspartate Amino Transferase 50 U/L (0-40); Blood Urea Nitrogen 47 mg/dL (8-23); Calcium 7.7 mg/dL (8.5-10.5); Carbon Dioxide 23 mmol/L (22-29); Chloride 108 mmol/L (98-107); Globulin 4.4 g/dL (1.3-4.6); Glucose 181 mg/dL (65-115); Osmolality Calculated 305 mOsm/kg (285-295); Potassium 4.1 mmol/L (3.5-5.1); Sodium 139 mmol/L (136-145); Total Bilirubin 0.2 mg/dL (0.15-1.2); Total Protein 6.5 g/dL (6.6-8.7)
[2021-07-19 07:32] LABS: Glucose Point of Care 163 mg/dL (70-110)
--- NOTE | 2021-07-19 07:51 | PC.NURSE ---
Notified Shonda Orta and Dr. Maxwell about PICC line appearing to still be bleeding. Night nurse reported the Dressing was changed during the night due to bleeding.
[2021-07-19] MEDS: insulin lispro 100 unit/1 mL SUBCUT ×3 (08:38→18:08)
[2021-07-19] MEDS: polyethylene glycol 3350 Pkt 17 gm PO (08:38)
[2021-07-19] MEDS: pantoprazole 40 mg SDV IVP (08:39)
[2021-07-19] MEDS: docusate sodium 100 mg Capsule PO ×2 (08:39→18:08)
[2021-07-19] MEDS: hyDRALAzine 25 mg Tablet PO (08:39)
[2021-07-19] MEDS: atorvastatin 40 mg Tablet 20 MG PO (08:39)
[2021-07-19] MEDS: amlodipine 10 mg Tablet PO (08:39)
[2021-07-19] MEDS: cloNIDine 0.1 mg Tablet PO ×2 (11:03→21:19)
[2021-07-19] MEDS: heparin 5,000 unit/mL INJ 1 mL 5000 UNIT SUBCUT (11:07)
--- NOTE | 2021-07-19 11:26 | PC.SOCIAL ---
IMM Updated Updated pt & on IMM. No questions voiced. Provided pt a copy. Initialed, dated, & timed copy in chart.
[2021-07-19 12:29] LABS: Glucose Point of Care 258 mg/dL (70-110)
--- NOTE | 2021-07-19 14:09 | XR_ITS ---
WS: [id number] Portable AP upright chest, 07/19/2021 Clinical Data: dyspnea, hypoxia Comparison: Portable chest, 07/10/2021 Findings: Bilateral patchy lower lobe opacities have developed in the last 9 days. There are small bi lateral effusions. These pulmonary opacities may represent atelectasis, pneumonia and effusion. The h eart is slightly enlarged. No pneumothorax is seen. The left PICC line remains in the same position e nding in the superior vena cava. XR/XR chest 1V portable [id number] Impression: 1. Development of patchy lower lobe pulmonary opacities which may represent pne umonia and/or atelectasis. 2. Small bilateral pleural effusions. 3. Cardiomegaly.
--- NOTE | 2021-07-19 14:15 | P.PN_ITS ---
Subjective Subjective: Interval history: And was admitted for the same. She had we have arrangedBlood pressure better controlled today after addition of hydralazine. Hemoglobin at 8.6, down from 9.9, however suspect this is related to equilibrium after transfusion. No signs of bleeding at any site. PICC line inserted yesterday. Oxygen saturation this morning noted to be 86% after which patient was placed on 2 L/min supplemental O2. His lungs have bilateral crackles on auscultation. Lasix has been on hold since surgery. Medications: Reviewed: Yes Medication Review Details: Current Medications Acetaminophen (Acetaminophen 325 Mg Tablet) 650 mg PO Q6H PRN PRN Reason: Mild/Mod Pain Or Temp >/= 101 Hydrocodone Bitart/Acetaminophen (Hydrocodone-Acetaminophen 5-325 Mg Tablet) 1 - 2 tab PO Q4H PRN PRN Reason: BREAKTHROUGH PAIN Last Admin: 07/13/21 16:47 Dose: 1 tab Documented by: Atorvastatin Calcium (Atorvastatin 40 Mg Tablet) 20 mg PO DAILY [facility] Last Admin: 07/14/21 07:49 Dose: 20 mg Documented by: Bisacodyl (Bisacodyl 5 Mg Tablet) 10 mg PO DAILY PRN; Protocol PRN Reason: Constipation (see protocol) Citalopram Hydrobromide (Citalopram 20 Mg Tablet) 20 mg PO DAILY [facility] Clonidine HCl (Clonidine 0.1 Mg Tablet) 0.1 mg PO Q12H [facility] Last Admin: 07/14/21 23:08 Dose: 0.1 mg Documented by: Dextrose (Dextrose 50% Syringe 50 Ml) 25 ml IVP ONCE PRN; Protocol PRN Reason: hypoglycemia protocol Dextrose (Dextrose 50% Syringe 50 Ml) 50 ml IVP PRN PRN; Protocol PRN Reason: hypoglycemia protocol Docusate Sodium (Docusate Sodium 100 Mg Capsule) 100 mg PO BID [facility] Last Admin: 07/14/21 16:34 Dose: Not Given Documented by: Glucagon (Glucagon 1 Mg/Ml Inj 1 Ml) 1 mg IM ONCE PRN; Protocol PRN Reason: Adult Acute Hypoglycemia Prot. Heparin Sodium (Porcine) (Heparin 5,000 Unit/Ml Inj 1 Ml) 5,000 unit SUBCUT Q12H [facility] Last Admin: 07/14/21 23:09 Dose: 5,000 unit Documented by: Dextrose (D5w) 500 mls @ 100 mls/hr IV ONCE PRN; Protocol PRN Reason: Adult Acute Hypoglycemia Prot Vancomycin HCl 750 mg/ Sodium (Chloride) 250 mls @ 250 mls/hr IV Q24H [facility] Last Infusion: 07/14/21 22:06 Dose: Infused Documented by: Piperacillin Sod/Tazobactam (Sod 3.375 gm/ Sodium Chloride) 50 mls @ 12.5 mls/hr IV Q8H [facility]; Protocol Last Infusion: 07/15/21 06:41 Dose: Infused Documented by: Insulin Detemir (Insulin Detemir 100 Units/1 Ml) 5 unit SUBCUT Q12H [facility] Last Admin: 07/14/21 23:08 Dose: 5 unit Documented by: Insulin Human Lispro (Insulin Lispro 100 Unit/1 Ml) 0 unit SUBCUT TIDWM [facility]; Protocol Last Admin: 07/14/21 16:59 Dose: 10 unit Documented by: Ondansetron HCl (Ondansetron 2 Mg/Ml Sdv 2 Ml) 4 mg IVP Q8H PRN PRN Reason: vomiting, or N/V if npo Pantoprazole Sodium (Pantoprazole 40 Mg Sdv) 40 mg IVP Q12H [facility] Last Admin: 07/14/21 21:30 Dose: 40 mg Documented by: Polyethylene Glycol (Polyethylene Glycol 3350 Pkt 17 Gm) 17 gm PO DAILY [facility] Last Admin: 07/14/21 08:06 Dose: Not Given Documented by: Sodium Phosphate (Fleet Enema 133 Ml Enema) 133 ml [place] PRN PRN PRN Reason: Clear stools Last Admin: 07/15/21 05:08 Dose: 133 ml Documented by: Sucralfate (Sucralfate 1 Gm Tablet) 1 gm PO AC&BEDTIME [facility] Last Admin: 07/15/21 06:25 Dose: Not Given Documented by: Tramadol HCl (Tramadol 50 Mg Tablet) 50 mg PO DAILY PRN PRN Reason: pain Vitals/I&O/Wt Last Vital Signs Temp 98.0 F 07/19/21 12:00 Pulse 73 07/19/21 12:00 Resp 18 07/19/21 12:00 BP 157/79 07/19/21 12:00 Pulse Ox 91 07/19/21 12:00 07/18/21 07/19/21 07/19/21 22:59 06:59 14:59 Intake Total 360 / 840 250 / 1090 360 / 360 Output Total 700 / 700 225 / 925 Balance -340 / 140 25 / 165 360 / 360 Physical Exam Narrative: EXAM NARRATIVE: GEN: Awake, alert and oriented, no acute distress CVS: S1S2 N RS: Bilateral coarse crackles to auscultation infra axillary area. 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: no focal neuro deficits Data : 07/19/21 05:02 07/19/21 05:02 A&P Assessment and plan (1) MRSA bacteremia: Status: Acute (2) Ulcer of left foot: Status: Acute Qualifiers: Non-pressure ulcer stage: with other severity Qualified Code(s): L97.528 - Non-pressure chronic ulcer of other part of left foot with other specified severity (3) Venous stasis ulcers of both lower extremities: Status: Acute (4) Atrial fibrillation: Status: Acute Qualifiers: Atrial fibrillation type: persistent (not longstanding) Qualified Code(s): I48.19 - Other persistent atrial fibrillation (5) Venous insufficiency of both lower extremities: Status: Acute (6) Chronic kidney disease (CKD) stage G3a/A1, moderately decreased glomerular filtration rate (GFR) between 45-59 mL/min/1.73 square meter and albuminuria creatinine ratio less than 30 mg/g: Status: Acute (7) Hypertension: Status: Acute Qualifiers: Hypertension type: essential hypertension Qualified Code(s): I10 - Essential (primary) hypertension (8) Type 2 diabetes mellitus: Status: Acute Qualifiers: Diabetes mellitus complication detail: with peripheral angiopathy with gangrene Diabetes mellitus complication status: with circulatory complication Diabetes mellitus nursing home insulin use: with manager terminal use Qualified Code(s): E11.52 - Type 2 diabetes mellitus with diabetic peripheral angiopathy with gangrene; Z79.4 - meterman (current) use of insulin (9) Sepsis: Status: Acute Plan Lazara Cleary is a 75 year old male with past medical history of,? hypertension , diabetes, CKD stage G3a/A1, atrial fibrillation on Xarelto at home, HFpEF, Venous insufficiency of both lower extremities, Gangrene of toe of right foot, came in from home after worsening left lower extremity ulcer and gangrene s/p amputation now, currently with wet to try dressing. Hospital course c/b MRSA bacteremia, likely source to be infected ulcer, GI bleeding # New hypoxia today on 07/19 Stat CXR Possibilities include acute on chronic CHF exacerbation. Per review of notes radha rohithjasmeet normally takes Lasix and metolazone at home which have been on hold during admission due to dehydration. Will resume Lasix today, 40 mg IV push now. Resume at 40 mg p.o. daily. If creatinine remains stable with above interventions will likely also resume home dose of metolazone. Additionally check rapid Covid antigen. Patient is unvaccinated for COVID-19. #Altered mental status, now back at baseline. #Sepsis secondary to bilateral lower extremity wound Wound cultures in the past have grown MRSA Patient had dry gangrene over her first metatarsal head plantar with necrosis extending to the level of the mid first metatarsal shaft laterally and medially to the medial aspect of the big toe.? 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 Peripheral angiogram delayed due to interim development of GI bleeding.? Ideally patient would need to be on a combination of aspirin and anticoagulation, however at this present time it is a risky intervention. Starting low dose a/c with Eliquis today with plan to follow-up with cardiology as outpatient in about 7 to 10 days. Please see detailed note from July 17 regarding the same. At this present time there is no evidence of repeat necrosis. Continue wet -to-dry dressings and arrange follow-up as outpatient with the wound care clinic. Discussed with Dr. Mensah. #MRSA bacteremia,? recommended 6 weeks of IV vancomycin, close trough monitoring.? PICC line has been placed on July 18 to facilitate the above. #Acute on chronic anemia, -Hemoglobin. 8.6 , transfused 1 unit PRBC on July 17, drop of 9.9-8.6 more likely to be related to equalization post transfusion. -Protonix 40 IV twice daily, Carafate---> change to po -EGD performed, no signs of active bleeding, no ulcers on upper GI endoscopy, had a few polyps removed.? Low-dose Eliquis starting tonight #Peripheral arterial disease Plan as above #History of atrial fibrillation: Currently rate is well controlled EKG Xarelto discontinued due to GI bleeding. Patient will now be on Eliquis 2.5 mg p.o. twice daily #TANIKA on CKD stage III: Likely prerenal TANIKA, possibly complicated by sepsis Baseline serum creatinine: 1.7-2. Currenty Stable #Diabetes: SSI, Levemir 10 units every 12 hours #Hypertension: Blood pressure better controlled after hydralazine however SBP still ~160, increase hydralazine to 50mg TID Dispo: Ongoing disposition planning, likely transition to SNF Attestations Medical Necessity Statement*: PICC line placed, monitor hemoglobin tomorrow morning after resumption of Eliquis, high risk intervention, new hypoxia today undergoing evaluation, need for IV diuretics today Coding Level of Care Code Acute Flow Machine Operator for [facility] Fwd Diagnoses MRSA bacteremia R78.81; B95.62 Ulcer of left foot L97.528 Non-pressure ulcer stage: with other severity Venous stasis ulcers of both lower extremities I83.019; I83.029; L97.919; L97.929 Atrial fibrillation I48.19 Atrial fibrillation type: persistent (not longstanding) Venous insufficiency of both lower extremities I87.2 Chronic kidney disease (CKD) stage G3a/A1, moderately decreased glomerular filtration rate (GFR) between 45-59 mL/min/1.73 square meter and albuminuria creatinine ratio less than 30 mg/g N18.31 Hypertension I10 Hypertension type: essential hypertension Type 2 diabetes mellitus E11.52; Z79.4 Diabetes mellitus complication detail: with peripheral angiopathy with gangrene Diabetes mellitus complication status: with circulatory complication Diabetes mellitus nursing home insulin use: with nursing home use Sepsis A41.9
[2021-07-19 14:45] LABS: NT Pro B Type Natriuretic Pept 15368 pg/mL (0-125)
[2021-07-19 15:31] LABS: SARS Covid-2 Antigen Negative (Negative)
[2021-07-19] MEDS: FUROsemide 10 mg/mL SDV 4mL 40 MG IVP (15:45)
[2021-07-19] MEDS: hyDRALAzine 25 mg Tablet 50 MG PO ×2 (15:45→21:19)
--- NOTE | 2021-07-19 16:03 | PC.RESP ---
RT Shift Note Frequent safety and respiratory rounds continue. Orders completed as indicated. Patient monitored pre and post treatments throughout shift. Patient [Did] tolerate treatments appropriately. Condition [.DidNotChange]. Patient and/or registered representative educated on respiratory treatment and medications. Patient and/or registered representative [verbalized understanding]. Will continue to monitor patient progress.
[2021-07-19 17:37] LABS: Glucose Point of Care 230 mg/dL (70-110)
[2021-07-19] MEDS: pantoprazole DR 40 mg Tablet PO (18:08)
[2021-07-19] MEDS: apixaban 5 mg Tablet 2.5 MG PO (21:21)
--- NOTE | 2021-07-19 21:28 | PC.NURSE ---
i reported low temp 97.4 to nurse
[2021-07-19 22:59] LABS: Hematocrit 26.7 % (42.0-52.0); Hemoglobin 8.2 g/dL (11.7-16.6)
[2021-07-19] MEDS: vancomycin 750 MG in sodium chloride 0.9% 250 ML 250 MG IV (23:58)
[2021-07-20] VITALS (9 sets, daily range): BP systolic 136–193; BP diastolic 56–75; PULSE 72–97; RESP 17–20; TEMP 36.4–37.1; O2SAT 90–95
[2021-07-20 02:14] LABS: Hematocrit 26.4 % (42.0-52.0)
[2021-07-20] MEDS: sucralfate 1 gm Tablet PO ×3 (05:54→21:00)
[2021-07-20 06:11] LABS: Basophils % 0.3 %; Eosinophils # 0.2 10^3/uL (0.0-0.8); Eosinophils % 1.6 %; Hematocrit 27.8 % (42.0-52.0); Hemoglobin 8.5 g/dL (11.7-16.6); Lymphocytes # 1.1 10^3/uL (0.8-4.8); Lymphocytes % 10.4 %; Mean Corpuscular HGB Conc 30.6 g/dL (30.0-36.0); Mean Corpuscular Hemoglobin 25.5 pg (28.0-34.0); Mean Corpuscular Volume 83.5 fl (80-94); Mean Platelet Volume 9.1 fL (7.4-10.4); Monocytes # 0.4 10^3/uL (0.2-0.9); Monocytes % 3.7 %; Neutrophils # 8.92 10^3/uL (1.8-7.7); Neutrophils % 83.5 %; Nucleated Red Blood Cells % 0 %; Platelet Count 254 10^3/cmm (130-400); Red Blood Count 3.33 10^6/uL (4.1-5.3); Red Cell Distribution Width 17.2 % (12.1-15.1); White Blood Count 10.7 10^3/uL (4.0-10.0)
[2021-07-20 06:24] LABS: Alanine Aminotransferase 20 U/L (0-41); Albumin Level 2.2 g/dL (3.5-5.2); Alkaline Phosphatase 208 IU/L (40-130); Aspartate Amino Transferase 48 U/L (0-40); Blood Urea Nitrogen 42 mg/dL (8-23); Calcium 8.5 mg/dL (8.5-10.5); Carbon Dioxide 21 mmol/L (22-29); Chloride 103 mmol/L (98-107); Globulin 4.8 g/dL (1.3-4.6); Glucose 196 mg/dL (65-115); Osmolality Calculated 294 mOsm/kg (285-295); Sodium 134 mmol/L (136-145); Total Bilirubin 0.3 mg/dL (0.15-1.2)
[2021-07-20 06:28] LABS: Glucose Point of Care 198 mg/dL (70-110)
--- NOTE | 2021-07-20 06:35 | PC.NURSE ---
Pt had three tarry BMs tonight, all three BM with visible blood as well, phys notified.
[2021-07-20 09:58] LABS: Hematocrit 27.1 % (42.0-52.0); Hemoglobin 8.1 g/dL (11.7-16.6)
[2021-07-20] MEDS: FUROsemide 40 mg Tablet PO (10:21)
[2021-07-20] MEDS: atorvastatin 40 mg Tablet 20 MG PO (10:22)
[2021-07-20] MEDS: pantoprazole DR 40 mg Tablet PO ×2 (10:22→17:51)
[2021-07-20] MEDS: amlodipine 10 mg Tablet PO (10:23)
[2021-07-20] MEDS: insulin lispro 100 unit/1 mL SUBCUT ×3 (10:24→17:52)
[2021-07-20] MEDS: hyDRALAzine 25 mg Tablet 50 MG PO ×3 (10:28→21:00)
[2021-07-20] MEDS: FUROsemide 10 mg/mL SDV 4mL 40 MG IVP (10:29)
[2021-07-20] MEDS: cloNIDine 0.1 mg Tablet PO ×2 (10:30→23:15)
--- NOTE | 2021-07-20 11:13 | PM.DCS ---
Discharge Providers Date of Admission: 07/10/21 19:54 Date of Discharge: July 20, 2021 Attending Provider at Admission: Julio C Owens MD Attending Provider at Discharge: Ayanna Maxwell MD Primary Care Provider: Jose Patiño MD Diagnoses at Discharge Discharge Diagnosis (1) MRSA bacteremia: Status: Acute (2) Ulcer of left foot: Status: Acute Qualifiers: Non-pressure ulcer stage: with other severity Qualified Code(s): L97.528 - Non-pressure chronic ulcer of other part of left foot with other specified severity (3) Venous stasis ulcers of both lower extremities: Status: Acute (4) Atrial fibrillation: Status: Acute Qualifiers: Atrial fibrillation type: persistent (not longstanding) Qualified Code(s): I48.19 - Other persistent atrial fibrillation (5) Venous insufficiency of both lower extremities: Status: Acute (6) Chronic kidney disease (CKD) stage G3a/A1, moderately decreased glomerular filtration rate (GFR) between 45-59 mL/min/1.73 square meter and albuminuria creatinine ratio less than 30 mg/g: Status: Acute (7) Hypertension: Status: Acute Qualifiers: Hypertension type: essential hypertension Qualified Code(s): I10 - Essential (primary) hypertension (8) Type 2 diabetes mellitus: Status: Acute Qualifiers: Diabetes mellitus complication detail: with peripheral angiopathy with gangrene Diabetes mellitus complication status: with circulatory complication Diabetes mellitus alf insulin use: with long filler cigar roller machine use Qualified Code(s): E11.52 - Type 2 diabetes mellitus with diabetic peripheral angiopathy with gangrene; Z79.4 - penitentiary (current) use of insulin (9) Sepsis: Status: Acute Reason for Visit Reason for Visit: Diabetic wounds Brief History: from H&P: 75 year old male with past medical history of,? hypertension , diabetes, CKD stage G3a/A1, atrial fibrillation on Xarelto,HFpEF, Venous insufficiency of both lower extremities, , came in from home after worsening left lower extremity ulcer. Hospital Course Hospital Course During course of admission patient was found to have sepsis secondary to bilateral lower extremity wound, left great toe base had necrotic gangrene. His blood culture returned positive for MRSA. He initially received treatment with vancomycin and Zosyn, thereafter changed only to vancomycin with recovery of blood cultures. 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 Currently the wound is left open with recommendations from orthopedics to continue wet-to-dry dressing twice daily and follow-up with wound care. He underwent vascular study which showed severe infrapopliteal disease and cardiology was consulted to assess for possibility of revascularization. A peripheral angiogram was originally planned with possibility of stenting, however patient in the interim developed GI bleeding and this intervention was deferred. Ideally patient would need to be on a combination of aspirin and anticoagulation after the procedure, however it is a risk intervention given GI bleed. He underwent upper and lower GI endoscopies which was negative for any active source of bleeding however did reveal some polyps which were removed. It was then decided to trial him on low-dose Eliquis 2.5 mg p.o. daily while closely monitoring hemoglobin and follow-up as outpatient with Dr. Méndez and reassess vascular status as an outpatient. His hemoglobin dropped to 7.8 during the course of admission and he received 1 unit of packed red blood cell transfusion. Posttransfusion hemoglobin was initially at 9.9, now stabilized at 8.1 on day of discharge. Due to drop in hemoglobin once again after transfusion, decision has been made to leave Eliquis on hold until he follows up with cardiology as an outpatient. Plans of delaying lower extremity intervention were additionally discussed with surgeon Dr. Mensah. For now reasonable to monitor over the next 10 to 14 days and reassess as outpatient regarding revascularization depending on his wound healing status. Wound care has been arranged at [facility], as has additional follow-up with our wound care clinic with Dr. Reynoso. For his MRSA bacteremia, 6 weeks of IV vancomycin is recommended with close trough monitoring (07/11-08/22) A PICC line was placed on July 18 to facilitate above. He is recommended to continue on Protonix 40 mg p.o. twice daily and Carafate. He additionally has a history of atrial fibrillation, rate remained well controlled during course of admission. Patient was previously on Xarelto prior to admission which has been held at discharge. Hospital course otherwise also notable for TANIKA on CKD likely prerenal complicated by sepsis, now creatinine is back at baseline of 1.5-1.7. Lasix had been on hold during the course of admission due to TANIKA, resumed on July 19, 2021 after patient developed signs of pulmonary edema and fluid overload. He has responded well to IV diuresis and will be discharged with resumption of Lasix. Physical Exam Narrative: EXAM NARRATIVE: GEN: Awake, alert and oriented, no acute distress CVS: S1S2 N RS: CTA B/L Abd: Soft, nt/nd , bs+ TEXTURE ARTIST: no focal neuro deficits Discharge Data Studies Completed and Pending Completed Studies During Hospitalization Category Date Time Status CT head wo con* [id number] Routine Cat Scan 07/13/21 13:02 Completed CXRP [XR chest 1V portable [id number]] Routine Exams 07/19/21 14:09 Completed CXRP [XR chest 1V portable [id number]] Stat Exams 07/18/21 13:32 Completed XR chest 1V portable [id number] Urgent Exams 07/10/21 12:54 Completed XR foot LT min 3V* [id number] Stat Exams 07/10/21 18:54 Completed Pathology: Surgical [PTH] Routine Pth 07/11/21 13:00 Completed Pathology: Surgical [PTH] Routine Pth 07/16/21 08:35 [place] [id number] Routine Ultrasound 07/11/21 15:34 Completed CV carotid duplex BI* [id number] Routine Ultrasound 07/13/21 13:02 Completed Pending at discharge Category Date Time Status Immunochemical Fecal OCB Routine Lab 07/11/21 09:16 Uncollected Vancomycin Trough Timed Lab 07/20/21 22:00 Ordered Radiology Impressions Foot X-Ray 07/10/21 18:54 IMPRESSION: No evidence of acute osteomyelitis. Head CT 07/13/21 13:02 IMPRESSION: 1. No acute intracranial hemorrhage or edema. 2. Atrophy and chronic microvascular ischemic disease similar to the prior study. No acute interval change. Chest X-Ray 07/19/21 14:09 Impression: 1. Development of patchy lower lobe pulmonary opacities which may represent pneumonia and/or atelectasis. 2. Small bilateral pleural effusions. 3. Cardiomegaly. Laboratory Results WBC 10.7 10^3/uL (4.0-10.0) H 07/20/21 04:59 RBC 3.33 10^6/uL (4.1-5.3) L 07/20/21 04:59 Hgb 8.1 g/dL (11.7-16.6) L 07/20/21 09:42 Hct 27.1 % (42.0-52.0) L 07/20/21 09:42 MCV 83.5 fl (80-94) 07/20/21 04:59 MCH 25.5 pg (28.0-34.0) L 07/20/21 04:59 MCHC 30.6 g/dL (30.0-36.0) 07/20/21 04:59 RDW 17.2 % (12.1-15.1) H 07/20/21 04:59 Plt Count 254 10^3/cmm (130-400) 07/20/21 04:59 MPV 9.1 fL (7.4-10.4) 07/20/21 04:59 Neut % (Auto) 83.5 % 07/20/21 04:59 Lymph % (Auto) 10.4 % 07/20/21 04:59 Whitman % (Auto) 3.7 % 07/20/21 04:59 Eos % (Auto) 1.6 % 07/20/21 04:59 Baso % (Auto) 0.3 % 07/20/21 04:59 Neut # (Auto) 8.92 10^3/uL (1.8-7.7) H 07/20/21 04:59 Lymph # (Auto) 1.1 10^3/uL (0.8-4.8) 07/20/21 04:59 Whitman # (Auto) 0.4 10^3/uL (0.2-0.9) 07/20/21 04:59 Eos # (Auto) 0.2 10^3/uL (0.0-0.8) 07/20/21 04:59 Baso # (Auto) 0.0 10^3/uL (0.0-0.1) 07/20/21 04:59 Nucleated RBC % (auto) 0 % 07/20/21 04:59 Nucleated RBCs # 0.0 /100WBC 07/20/21 04:59 ESR 67 mm/hr (0-10) H 07/11/21 06:10 PT 23.60 SECONDS (12.1-14.9) H 07/10/21 13:57 INR 2.06 (0.8-1.2) H 07/10/21 13:57 Sodium 134 mmol/L (136-145) L 07/20/21 04:59 Potassium 4.0 mmol/L (3.5-5.1) 07/20/21 04:59 Chloride 103 mmol/L (98-107) 07/20/21 04:59 Carbon Dioxide 21 mmol/L (22-29) L 07/20/21 04:59 Anion Gap 14.0 (5-19) 07/20/21 04:59 BUN 42 mg/dL (8-23) H 07/20/21 04:59 Creatinine 1.5 mg/dL (0.7-1.2) H 07/20/21 04:59 GFR Calculation Not Reportable 07/20/21 04:59 Glucose 196 mg/dL (65-115) H 07/20/21 04:59 POC Glucose 198 mg/dL (70-110) H 07/20/21 06:16 Calculated Osmolality 294 mOsm/kg (285-295) 07/20/21 04:59 Lactate 1.5 mmol/L (0.5-2.2) 07/10/21 13:57 Calcium 8.5 mg/dL (8.5-10.5) 07/20/21 04:59 Phosphorus 2.5 mg/dL (2.5-4.5) 07/15/21 04:39 Magnesium 2.3 mg/dL (1.7-2.3) 07/15/21 04:39 Iron 11 ug/dL (59-158) L 07/11/21 06:10 Iron Cancelled 07/11/21 06:10 TIBC 163 mcg/dl 07/11/21 06:10 % Saturation 6.7 % (20-50) L 07/11/21 06:10 Unsat Iron Binding 152 ug/dL (112-347) 07/11/21 06:10 Ferritin 144 ng/mL (30-400) 07/11/21 06:10 Total Bilirubin 0.3 mg/dL (0.15-1.2) 07/20/21 04:59 AST 48 U/L (0-40) H 07/20/21 04:59 ALT 20 U/L (0-41) 07/20/21 04:59 Alkaline Phosphatase 208 IU/L (40-130) H 07/20/21 04:59 C-Reactive Protein 88.7 mg/L (0.0-4.9) H 07/15/21 04:39 NT-Pro-B Natriuret Pep 95958 pg/mL (0-125) H 07/19/21 05:02 Total Protein 7.0 g/dL (6.6-8.7) 07/20/21 04:59 Albumin 2.2 g/dL (3.5-5.2) L 07/20/21 04:59 Globulin 4.8 g/dL (1.3-4.6) H 07/20/21 04:59 Procalcitonin 0.24 ng/mL (0-0.5) 07/15/21 04:39 Urine Color Yellow (Yellow) 07/10/21 19:50 Urine Appearance Clear (CLEAR) 07/10/21 19:50 Urine pH 5 (5-7) 07/10/21 19:50 Ur Specific [place] 1.010 (1.005-1.030) 07/10/21 19:50 Urine Protein Neg (Negative) 07/10/21 19:50 Urine Glucose (UA) Norm (Normal) 07/10/21 19:50 Urine Ketones Negative (Negative) 07/10/21 19:50 Urine Blood Neg (Negative) 07/10/21 19:50 Urine Nitrate Negative (Negative) 07/10/21 19:50 Urine Bilirubin Neg (Negative) 07/10/21 19:50 Urine Urobilinogen Norm mg/dL (Negative) 07/10/21 19:50 Ur Leukocyte Esterase Negative (Negative) 07/10/21 19:50 Vancomycin Trough 18.3 ug/mL (10-15) H 07/17/21 20:45 SARS-CoV-2 Ag (Rapid) Negative (Negative) 07/19/21 14:55 Blood Type A Positive 07/17/21 13:44 Rho(D) Type Positive 07/17/21 13:44 Antibody Screen Negative 07/17/21 13:44 Crossmatch See Detail 07/17/21 13:44 Procedures Performed Amputation left first ray Vitals Last Vital Signs Temp 97.5 F L 07/20/21 10:54 Pulse 79 07/20/21 10:54 Resp 17 07/20/21 10:54 BP 140/69 07/20/21 10:54 Pulse Ox 90 07/20/21 10:54 Discharge Plan Discharge Patient Disposition: Xfer SNF Condition: Stable Prescriptions: New clonidine HCl 0.1 mg Tablet 0.1 mg PO Q12H 30 Days Qty: 60 0RF sucralfate 1 gram Tablet 1 g PO AC&BEDTIME 30 Days Qty: 60 0RF amlodipine 10 mg Tablet 10 mg PO DAILY 30 Days Qty: 30 0RF pantoprazole 40 mg Tablet,Delayed Release (Dr/Ec) 40 mg PO BID 30 Days Qty: 60 0RF bisacodyl 5 mg Tablet,Delayed Release (Dr/Ec) 10 mg PO DAILY PRN (Reason: Constipation (see protocol)) 30 Days Qty: 30 0RF Continued ferrous sulfate 325 mg (65 mg iron) tablet,delayed release (DR/EC) 325 mg PO BID 0RF galantamine 24 mg capsule,ext rel. pellets 24 hr 24 mg PO QAM Qty: 30 2RF Rx Instructions: administer with breakfast; take AFTER completing the 8mg and 16mg doses tramadol 50 mg tablet 50 mg PO DAILY PRN (Reason: pain) Qty: 30 3RF metformin 1,000 mg tablet 500 mg PO BID Qty: 90 1RF atorvastatin 20 mg tablet 20 mg PO BEDTIME 0RF citalopram 20 mg tablet 20 mg PO QAM 0RF Levemir FlexTouch U-100 Insuln 100 unit/mL (3 mL) insulin pen 10 unit SUBCUT BID 0RF Novolog U-100 Insulin aspart 100 unit/mL solution See Rx Instructions .ROUTE .COMPLEX 0RF Rx Instructions: sliding scale prn Changed furosemide 40 mg tablet 60 mg PO DAILY 30 Days Qty: 0 0RF Rx Instructions: 40 mg orally on mon,tues,thurs and sat and 80mg po sun,sat,sat hydralazine 25 mg tablet 50 mg PO TID Qty: 0 0RF Discontinued pantoprazole 40 mg tablet,delayed release (DR/EC) 40 mg PO QAM 0RF lisinopril 20 mg tablet 20 mg PO QAM 0RF Vitamin C 500 mg Tablet 500 mg PO BID 0RF metolazone 5 mg tablet 5 mg PO DAILY PRN (Reason: Edema) 0RF Xarelto 15 mg tablet 15 mg PO QPM 0RF Discharge Orders: Discharge Order (Routine); Ordered 07/20/21 Ordered By: Ayanna Maxwell Referrals: Jose Patiño MD [Primary Care Provider] - Sp Méndez MD [Physician] - Marely Davalos MD [Physician] - 08/01/21 9:45 am [facility], [Staff Physician] - 07/24/21 1:30 pm Patient Instructions: GI Discharge Instructions Discharge Attestations Time Spent in Discharge Care*: greater than 30 min Quality Metrics Clinical Quality Measures [ No reported AMI, CVA or VTE this stay] Coding Level of Care Code Acute Chg FW DC note Diagnoses MRSA bacteremia R78.81; B95.62 Ulcer of left foot L97.528 Non-pressure ulcer stage: with other severity Venous stasis ulcers of both lower extremities I83.019; I83.029; L97.919; L97.929 Atrial fibrillation I48.19 Atrial fibrillation type: persistent (not longstanding) Venous insufficiency of both lower extremities I87.2 Chronic kidney disease (CKD) stage G3a/A1, moderately decreased glomerular filtration rate (GFR) between 45-59 mL/min/1.73 square meter and albuminuria creatinine ratio less than 30 mg/g N18.31 Hypertension I10 Hypertension type: essential hypertension Type 2 diabetes mellitus E11.52; Z79.4 Diabetes mellitus complication detail: with peripheral angiopathy with gangrene Diabetes mellitus complication status: with circulatory complication Diabetes mellitus alf insulin use: with long filler cigar roller machine use Sepsis A41.9
[2021-07-20 11:51] LABS: Glucose Point of Care 296 mg/dL (70-110)
[2021-07-20 13:24] LABS: Glucose Point of Care 270 mg/dL (70-110)
[2021-07-20 16:53] LABS: Hematocrit 25.9 % (42.0-52.0); Hemoglobin 7.9 g/dL (11.7-16.6)
[2021-07-20 17:20] LABS: Glucose Point of Care 254 mg/dL (70-110)
[2021-07-20] MEDS: FUROsemide 10 mg/mL SDV 2mL 20 MG IVP (19:58)
[2021-07-20] MEDS: pantoprazole 40 mg SDV IVP (19:58)
[2021-07-20 21:16] LABS: Glucose Point of Care 259 mg/dL (70-110)
[2021-07-20 21:37] LABS: Vancomycin Trough 19.6 ug/mL (10-15)
[2021-07-20] MEDS: vancomycin 750 MG in sodium chloride 0.9% 250 ML 250 MG IV (23:15)
[2021-07-21] VITALS (12 sets, daily range): BP systolic 134–186; BP diastolic 61–89; PULSE 62–89; RESP 16–20; TEMP 36.4–37.1; O2SAT 92–98
[2021-07-21] MEDS: sodium chloride 0.9% (100 ml) 100 ML 125 ML (00:27)
--- NOTE | 2021-07-21 05:55 | PC.NURSE ---
Pt continues to have bloody stools x3 throughout the night.
[2021-07-21] MEDS: sucralfate 1 gm Tablet PO ×2 (06:18→12:26)
[2021-07-21 06:49] LABS: Glucose Point of Care 210 mg/dL (70-110)
[2021-07-21] MEDS: pantoprazole 40 mg SDV IVP (06:55)
[2021-07-21 07:21] LABS: Hemoglobin 8.5 g/dL (11.7-16.6)
[2021-07-21 07:42] LABS: Alanine Aminotransferase 19 U/L (0-41); Albumin Level 2.3 g/dL (3.5-5.2); Alkaline Phosphatase 234 IU/L (40-130); Anion Gap 13.6 (5-19); Aspartate Amino Transferase 47 U/L (0-40); Blood Urea Nitrogen 45 mg/dL (8-23); Calcium 7.8 mg/dL (8.5-10.5); Carbon Dioxide 23 mmol/L (22-29); Chloride 103 mmol/L (98-107); Glucose 193 mg/dL (65-115); Osmolality Calculated 297 mOsm/kg (285-295); Potassium 4.6 mmol/L (3.5-5.1); Sodium 135 mmol/L (136-145); Total Bilirubin 0.9 mg/dL (0.15-1.2); Total Protein 7.3 g/dL (6.6-8.7)
[2021-07-21] MEDS: insulin lispro 100 unit/1 mL SUBCUT ×2 (08:26→12:26)
[2021-07-21] MEDS: amlodipine 10 mg Tablet PO (08:26)
[2021-07-21] MEDS: atorvastatin 40 mg Tablet 20 MG PO (08:27)
[2021-07-21] MEDS: FUROsemide 40 mg Tablet PO (08:27)
[2021-07-21] MEDS: hyDRALAzine 25 mg Tablet 50 MG PO (08:27)
--- NOTE | 2021-07-21 11:05 | PC.SOCIAL ---
IMM Update pg 2 of IMM updated and reviewed w/ patient. Copy provided. Copy in chart signed & dated.
[2021-07-21 11:33] LABS: Glucose Point of Care 167 mg/dL (70-110)
[2021-07-21] MEDS: TRAMadol 50 mg Tablet PO (12:24)
[2021-07-21] MEDS: cloNIDine 0.1 mg Tablet PO (12:25)
[2021-07-21 12:43] LABS: Hematocrit 26.7 % (42.0-52.0); Hemoglobin 8.1 g/dL (11.7-16.6)
[2021-07-21] MEDS: FUROsemide 10 mg/mL SDV 4mL 40 MG IVP (13:34)
--- NOTE | 2021-07-21 14:50 | P.DS_ITS ---
Discharge Providers Date of Admission: 07/10/21 19:54 Date of Discharge: July 21, 2021 Attending Provider at Admission: Julio C Owens MD Attending Provider at Discharge: Ayanna Maxwell MD Primary Care Provider: Jose Patiño MD Diagnoses at Discharge Discharge Diagnosis (1) MRSA bacteremia: Status: Acute (2) Ulcer of left foot: Status: Acute Qualifiers: Non-pressure ulcer stage: with other severity Qualified Code(s): L97.528 - Non-pressure chronic ulcer of other part of left foot with other specified severity (3) Venous stasis ulcers of both lower extremities: Status: Acute (4) Atrial fibrillation: Status: Acute Qualifiers: Atrial fibrillation type: persistent (not longstanding) Qualified Code(s): I48.19 - Other persistent atrial fibrillation (5) Venous insufficiency of both lower extremities: Status: Acute (6) Chronic kidney disease (CKD) stage G3a/A1, moderately decreased glomerular filtration rate (GFR) between 45-59 mL/min/1.73 square meter and albuminuria creatinine ratio less than 30 mg/g: Status: Acute (7) Hypertension: Status: Acute Qualifiers: Hypertension type: essential hypertension Qualified Code(s): I10 - Essential (primary) hypertension (8) Type 2 diabetes mellitus: Status: Acute Qualifiers: Diabetes mellitus complication detail: with peripheral angiopathy with gangrene Diabetes mellitus complication status: with circulatory complication Diabetes mellitus correction insulin use: with termite helper use Qualified Code(s): E11.52 - Type 2 diabetes mellitus with diabetic peripheral angiopathy with gangrene; Z79.4 - assisted (current) use of insulin (9) Sepsis: Status: Acute Reason for Visit Reason for Visit: Diabetic wounds Hospital Course Hospital Course During course of admission patient was found to have sepsis secondary to bilateral lower extremity wound, left great toe base had necrotic gangrene. His blood culture returned positive for MRSA. He initially received treatment with vancomycin and Zosyn, thereafter changed only to vancomycin with recovery of blood cultures. 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 Currently the wound is left open with recommendations from orthopedics to continue wet-to-dry dressing twice daily and follow-up with wound care. He underwent vascular study which showed severe infrapopliteal disease and cardiology was consulted to assess for possibility of revascularization. A peripheral angiogram was originally planned with possibility of stenting, however patient in the interim developed GI bleeding and this intervention was deferred. Ideally patient would need to be on a comb ination of aspirin and anticoagulation after the procedure, however it is a risk intervention given GI bleed. He underwent upper and lower GI endoscopies which was negative for any active source of bleeding however did reveal some polyps which were removed. It was then decided to trial him on low-dose Eliquis 2.5 mg p.o. daily while closely monitoring hemoglobin and follow-up as outpatient with Dr. Méndez and reassess vascular status as an outpatient. His hemoglobin dropped to 7.8 during the course of admission and he received 1 unit of packed red blood cell transfusion. Posttransfusion hemoglobin was initially at 9.9, now stabilized at 8.1 on day of discharge. Due to drop in hemoglobin once again after transfusion, decision has been made to leave Eliquis on hold until he follows up with cardiology as an outpatient. Plans of delaying lower extremity intervention were additionally discussed with surgeon Dr. Mensah. For now reasonable to monitor over the next 10 to 14 days and reassess as outpatient regarding revascularization depending on his wound healing status. Wound care has been arranged at [facility], as has additional follow-up with our wound care clinic with Dr. Reynoso. For his MRSA bacteremia, 6 weeks of IV vancomycin is recommended with close trough monitoring (07/11-08/22) A PICC line was placed on July 18 to facilitate above. He is recommended to continue on Protonix 40 mg p.o. twice daily and Carafate. He additionally has a history of atrial fibrillation, rate remained well controlled during course of admission. Patient was previously on Xarelto prior to admission which has been held at discharge. Hospital course otherwise also notable for TANIKA on CKD likely prerenal complicated by sepsis, now creatinine is back at baseline of 1.5-1.7. Lasix had been on hold during the course of admission due to TANIKA, resumed on July 19, 2021 after patient developed signs of pulmonary edema and fluid overload. He has responded well to IV diuresis and will be discharged with resumption of Lasix 80mg BID. Home medication list also includes metolazone 5mg prn which can be utilized if lasix 80mg BID does not result in significant response. He was planned to be discharged on 07/20 but then developed 2 episodes of jenn with HB at 7.9 for which he was transfused overnight with 1PRBC. Repeat Hb stable at 8.1 this afternoon at 12. No further jenn today. Physical Exam Narrative: EXAM NARRATIVE: GEN: Awake, alert and oriented, no acute distress CVS: S1S2 N RS: CTA B/L, few crackles at B/L infraaxillary areas Abd: Soft, nt/nd , bs+ EMERGENCY MEDICAL SERVICE COORDINATOR: no focal neuro deficits Discharge Data Studies Completed and Pending Completed Studies During Hospitalization Category Date Time Status CT head wo con* [id number] Routine Cat Scan 07/13/21 13:02 Completed CXRP [XR chest 1V portable [id number]] Routine Exams 07/19/21 14:09 Completed CXRP [XR chest 1V portable [id number]] Stat Exams 07/18/21 13:32 Completed XR chest 1V portable [id number] Urgent Exams 07/10/21 12:54 Completed XR foot LT min 3V* [id number] Stat Exams 07/10/21 18:54 Completed Pathology: Surgical [PTH] Routine Pth 07/11/21 13:00 Completed Pathology: Surgical [PTH] Routine Pth 07/16/21 08:35 [place] [id number] Routine Ultrasound 07/11/21 15:34 Completed CV carotid duplex BI* [id number] Routine Ultrasound 07/13/21 13:02 Completed Pending at discharge Category Date Time Status Immunochemical Fecal OCB Routine Lab 07/11/21 09:16 Uncollected Radiology Impressions Foot X-Ray 07/10/21 18:54 IMPRESSION: No evidence of acute osteomyelitis. Head CT 07/13/21 13:02 IMPRESSION: 1. No acute intracranial hemorrhage or edema. 2. Atrophy and chronic microvascular ischemic disease similar to the prior study. No acute interval change. Chest X-Ray 07/19/21 14:09 Impression: 1. Development of patchy lower lobe pulmonary opacities which may represent pneumonia and/or atelectasis. 2. Small bilateral pleural effusions. 3. Cardiomegaly. Laboratory Results WBC 10.7 10^3/uL (4.0-10.0) H 07/20/21 04:59 RBC 3.33 10^6/uL (4.1-5.3) L 07/20/21 04:59 Hgb 8.1 g/dL (11.7-16.6) L 07/21/21 12:31 Hct 26.7 % (42.0-52.0) L 07/21/21 12:31 MCV 83.5 fl (80-94) 07/20/21 04:59 MCH 25.5 pg (28.0-34.0) L 07/20/21 04:59 MCHC 30.6 g/dL (30.0-36.0) 07/20/21 04:59 RDW 17.2 % (12.1-15.1) H 07/20/21 04:59 Plt Count 254 10^3/cmm (130-400) 07/20/21 04:59 MPV 9.1 fL (7.4-10.4) 07/20/21 04:59 Neut % (Auto) 83.5 % 07/20/21 04:59 Lymph % (Auto) 10.4 % 07/20/21 04:59 [place] % (Auto) 3.7 % 07/20/21 04:59 Eos % (Auto) 1.6 % 07/20/21 04:59 Baso % (Auto) 0.3 % 07/20/21 04:59 Neut # (Auto) 8.92 10^3/uL (1.8-7.7) H 07/20/21 04:59 Lymph # (Auto) 1.1 10^3/uL (0.8-4.8) 07/20/21 04:59 [place] # (Auto) 0.4 10^3/uL (0.2-0.9) 07/20/21 04:59 Eos # (Auto) 0.2 10^3/uL (0.0-0.8) 07/20/21 04:59 Baso # (Auto) 0.0 10^3/uL (0.0-0.1) 07/20/21 04:59 Nucleated RBC % (auto) 0 % 07/20/21 04:59 Nucleated RBCs # 0.0 /100WBC 07/20/21 04:59 ESR 67 mm/hr (0-10) H 07/11/21 06:10 PT 23.60 SECONDS (12.1-14.9) H 07/10/21 13:57 INR 2.06 (0.8-1.2) H 07/10/21 13:57 Sodium 135 mmol/L (136-145) L 07/21/21 06:33 Potassium 4.6 mmol/L (3.5-5.1) 07/21/21 06:33 Chloride 103 mmol/L (98-107) 07/21/21 06:33 Carbon Dioxide 23 mmol/L (22-29) 07/21/21 06:33 Anion Gap 13.6 (5-19) 07/21/21 06:33 BUN 45 mg/dL (8-23) H 07/21/21 06:33 Creatinine 1.6 mg/dL (0.7-1.2) H 07/21/21 06:33 GFR Calculation Not Reportable 07/21/21 06:33 Glucose 193 mg/dL (65-115) H 07/21/21 06:33 POC Glucose 167 mg/dL (70-110) H 07/21/21 11:02 Calculated Osmolality 297 mOsm/kg (285-295) H 07/21/21 06:33 Lactate 1.5 mmol/L (0.5-2.2) 07/10/21 13:57 Calcium 7.8 mg/dL (8.5-10.5) L 07/21/21 06:33 Phosphorus 2.5 mg/dL (2.5-4.5) 07/15/21 04:39 Magnesium 2.3 mg/dL (1.7-2.3) 07/15/21 04:39 Iron 11 ug/dL (59-158) L 07/11/21 06:10 Iron Cancelled 07/11/21 06:10 TIBC 163 mcg/dl 07/11/21 06:10 % Saturation 6.7 % (20-50) L 07/11/21 06:10 Unsat Iron Binding 152 ug/dL (112-347) 07/11/21 06:10 Ferritin 144 ng/mL (30-400) 07/11/21 06:10 Total Bilirubin 0.9 mg/dL (0.15-1.2) 07/21/21 06:33 AST 47 U/L (0-40) H 07/21/21 06:33 ALT 19 U/L (0-41) 07/21/21 06:33 Alkaline Phosphatase 234 IU/L (40-130) H 07/21/21 06:33 C-Reactive Protein 88.7 mg/L (0.0-4.9) H 07/15/21 04:39 NT-Pro-B Natriuret Pep 38757 pg/mL (0-125) H 07/19/21 05:02 Total Protein 7.3 g/dL (6.6-8.7) 07/21/21 06:33 Albumin 2.3 g/dL (3.5-5.2) L 07/21/21 06:33 Globulin 5.0 g/dL (1.3-4.6) H 07/21/21 06:33 Procalcitonin 0.24 ng/mL (0-0.5) 07/15/21 04:39 Urine Color Yellow (Yellow) 07/10/21 19:50 Urine Appearance Clear (CLEAR) 07/10/21 19:50 Urine pH 5 (5-7) 07/10/21 19:50 Ur Specific [place] 1.010 (1.005-1.030) 07/10/21 19:50 Urine Protein Neg (Negative) 07/10/21 19:50 Urine Glucose (UA) Norm (Normal) 07/10/21 19:50 Urine Ketones Negative (Negative) 07/10/21 19:50 Urine Blood Neg (Negative) 07/10/21 19:50 Urine Nitrate Negative (Negative) 07/10/21 19:50 Urine Bilirubin Neg (Negative) 07/10/21 19:50 Urine Urobilinogen Norm mg/dL (Negative) 07/10/21 19:50 Ur Leukocyte Esterase Negative (Negative) 07/10/21 19:50 Vancomycin Trough 19.6 ug/mL (10-15) H 07/20/21 21:04 SARS-CoV-2 Ag (Rapid) Negative (Negative) 07/19/21 14:55 Blood Type A Positive 07/20/21 21:04 Rho(D) Type Positive 07/20/21 21:04 Antibody Screen Negative 07/20/21 21:04 Crossmatch See Detail 07/20/21 21:04 Vitals Last Vital Signs Temp 98.7 F 07/21/21 12:00 Pulse 89 07/21/21 12:00 Resp 18 07/21/21 12:00 BP 151/84 07/21/21 12:25 Pulse Ox 94 07/21/21 12:00 Discharge Plan Discharge Patient Disposition: Xfer SNF Condition: Stable Prescriptions: New clonidine HCl 0.1 mg Tablet 0.1 mg PO Q12H 30 Days Qty: 60 0RF sucralfate 1 gram Tablet 1 g PO AC&BEDTIME 30 Days Qty: 60 0RF amlodipine 10 mg Tablet 10 mg PO DAILY 30 Days Qty: 30 0RF pantoprazole 40 mg Tablet,Delayed Release (Dr/Ec) 40 mg PO BID 30 Days Qty: 60 0RF bisacodyl 5 mg Tablet,Delayed Release (Dr/Ec) 10 mg PO DAILY PRN (Reason: Constipation (see protocol)) 30 Days Qty: 30 0RF Continued ferrous sulfate 325 mg (65 mg iron) tablet,delayed release (DR/EC) 325 mg PO BID 0RF galantamine 24 mg capsule,ext rel. pellets 24 hr 24 mg PO QAM Qty: 30 2RF Rx Instructions: administer with breakfast; take AFTER completing the 8mg and 16mg doses tramadol 50 mg tablet 50 mg PO DAILY PRN (Reason: pain) Qty: 30 3RF metformin 1,000 mg tablet 500 mg PO BID Qty: 90 1RF atorvastatin 20 mg tablet 20 mg PO BEDTIME 0RF citalopram 20 mg tablet 20 mg PO QAM 0RF Levemir FlexTouch U-100 Insuln 100 unit/mL (3 mL) insulin pen 10 unit SUBCUT BID 0RF Novolog U-100 Insulin aspart 100 unit/mL solution See Rx Instructions .ROUTE .COMPLEX 0RF Rx Instructions: sliding scale prn Changed hydralazine 25 mg tablet 50 mg PO TID Qty: 0 0RF furosemide 40 mg tablet 80 mg PO BID 30 Days Qty: 0 0RF Rx Instructions: 40 mg orally on mon,tu,th and sat and 80mg po sun,wed,fri Discontinued pantoprazole 40 mg tablet,delayed release (DR/EC) 40 mg PO QAM 0RF lisinopril 20 mg tablet 20 mg PO QAM 0RF ascorbic acid (vitamin C) [Vitamin C] 500 mg Tablet 500 mg PO BID 0RF metolazone 5 mg tablet 5 mg PO DAILY PRN (Reason: Edema) 0RF Xarelto 15 mg tablet 15 mg PO QPM 0RF Discharge Orders: Discharge Order (Routine); Ordered 07/21/21 Ordered By: Ayanna Maxwell Referrals: [facility] [Outside] Jose Patiño MD [Primary Care Provider] - Marely Davalos MD [Physician] - 08/01/21 9:45 am [facility], [Staff Physician] - 07/24/21 1:30 pm Discharge Diet: Usual diet Discharge Activity: As per PT/OT instructions Patient Instructions: GI Discharge Instructions Activity Restrictions/Additional Instructions: Continue Wet 2 Dry w/ Saline Dressing using ABD and Kerlix BID Patient is being discharged on increased dose of LAsix at 80mg po BID, please reassess in 3 days if needs to be titrated. Home medications also include metolazone 5mg po daily prn which can be resumed if needed. HB at discharge 8.1, recheck in 2 days, sooner if develops hematemesis/jenn. Oxygen @ 2L/min NC continuous. Discharge Attestations Time Spent in Discharge Care*: greater than 30 min Quality Metrics Clinical Quality Measures [ No reported AMI, CVA or VTE this stay] Coding Level of Care Code Acute g [facility] note Diagnoses MRSA bacteremia R78.81; B95.62 Ulcer of left foot L97.528 Non-pressure ulcer stage: with other severity Venous stasis ulcers of both lower extremities I83.019; I83.029; L97.919; L97.929 Atrial fibrillation I48.19 Atrial fibrillation type: persistent (not longstanding) Venous insufficiency of both lower extremities I87.2 Chronic kidney disease (CKD) stage G3a/A1, moderately decreased glomerular filtration rate (GFR) between 45-59 mL/min/1.73 square meter and albuminuria creatinine ratio less than 30 mg/g N18.31 Hypertension I10 Hypertension type: essential hypertension Type 2 diabetes mellitus E11.52; Z79.4 Diabetes mellitus complication detail: with peripheral angiopathy with gangrene Diabetes mellitus complication status: with circulatory complication Diabetes mellitus termite helper insulin use: with correction use Sepsis A41.9
== END 2021-07-21 14:30 | disposition skilled nursing facility (03) | DRG 853 ==
LOC: ER 20:19 → MEDSURG 21:31
PROVIDERS: Family Medicine; Nurse Practitioner Family; Orthopaedic Surgery; Surgery; Admitting Provider Internal Medicine; Emergency Provider Emergency Medicine; PCP Family Medicine; Visit Provider Student in an Organized Health Care Education/Training Program
PROC: 0Y6N0Z4 Detachment at Left Foot, Complete 1st Ray, Open Approach (ICD-10-PCS; principal; 2021-07-11 12:00)
PROC: 0DJ08ZZ Inspection of Upper Intestinal Tract, Via Natural or Artificial Opening Endoscopic (ICD-10-PCS; CPT 43235; principal; 2021-07-16 08:00)
PROC: 0DJD8ZZ Inspection of Lower Intestinal Tract, Via Natural or Artificial Opening Endoscopic (ICD-10-PCS; CPT 45378; 2021-07-16 08:00)
DX: A41.02 Sepsis due to Methicillin resistant Staphylococcus aureus (principal); I50.33 Acute on chronic diastolic (congestive) heart failure; E11.52 Type 2 diabetes mellitus with diabetic peripheral angiopathy with gangrene; L97.528 Non-pressure chronic ulcer of other part of left foot with other specified severity; N17.9 Acute kidney failure, unspecified; K92.1 Melena; I13.0 Hypertensive heart and chronic kidney disease with heart failure and stage 1 through stage 4 chronic kidney disease, or unspecified chronic kidney disease; L03.116 Cellulitis of left lower limb; L97.829 Non-pressure chronic ulcer of other part of left lower leg with unspecified severity; L97.819 Non-pressure chronic ulcer of other part of right lower leg with unspecified severity; K92.2 Gastrointestinal hemorrhage, unspecified; D50.8 Other iron deficiency anemias; D63.1 Anemia in chronic kidney disease; E11.621 Type 2 diabetes mellitus with foot ulcer; E11.622 Type 2 diabetes mellitus with other skin ulcer; E11.22 Type 2 diabetes mellitus with diabetic chronic kidney disease; N18.31 Chronic kidney disease, stage 3a; I48.91 Unspecified atrial fibrillation; I87.2 Venous insufficiency (chronic) (peripheral); E78.5 Hyperlipidemia, unspecified; E78.00 Pure hypercholesterolemia, unspecified; K21.9 Gastro-esophageal reflux disease without esophagitis; F03.90 Unspecified dementia, unspecified severity, without behavioral disturbance, psychotic disturbance, mood disturbance, and anxiety; Z79.4 Long term (current) use of insulin; Z79.01 Long term (current) use of anticoagulants; Z89.422 Acquired absence of other left toe(s)
CPT/HCPCS: 12345; 36415; 36416; 36430; 36569; 43251; 45385; 70450; 71045; 73630; 80048; 80053; 80202; 81003; 82274; 82728; 82962; 83540; 83550; 83605; 83735; 83880; 84100; 84145; 85014; 85018; 85025; 85610; 85651; 86140; 86850; 86900; 86920; 87040; 87077; 87150; 87186; 87205; 87426; 88305; 88311; 93005; 93880; 93925; 96365; 96367; 96372; 97110; 97116; 97162; 97165; 97530; 97535; 99285; C9113; J0690; J1644; J1815; J1940; J2543; J2704; J3010; J3370; J7030; J7050; P9016; P9040

== ENCOUNTER 2021-07-23 12:31 | Outpatient (CLI) | payer MEDICARE, SELFPAY ==
[2021-07-23 12:51] LABS: Basophils % 0.5 %; Eosinophils # 0.1 10^3/uL (0.0-0.8); Eosinophils % 1.9 %; Hematocrit 22.2 % (42.0-52.0); Hemoglobin 6.6 g/dL (11.7-16.6); Lymphocytes # 0.7 10^3/uL (0.8-4.8); Lymphocytes % 11.6 %; Mean Corpuscular HGB Conc 29.7 g/dL (30.0-36.0); Mean Corpuscular Hemoglobin 24.9 pg (28.0-34.0); Mean Corpuscular Volume 83.8 fl (80-94); Mean Platelet Volume 9.5 fL (7.4-10.4); Monocytes # 0.4 10^3/uL (0.2-0.9); Monocytes % 6.6 %; Neutrophils # 5.03 10^3/uL (1.8-7.7); Neutrophils % 78.9 %; Nucleated Red Blood Cells % 0 %; Platelet Count 211 10^3/cmm (130-400); Red Blood Count 2.65 10^6/uL (4.1-5.3); Red Cell Distribution Width 18.6 % (12.1-15.1); White Blood Count 6.4 10^3/uL (4.0-10.0)
== END 2021-07-23 12:32 | disposition home or self-care (01) ==
PROVIDERS: PCP Family Medicine; Visit Provider Family Medicine
DX: D64.9 Anemia, unspecified (principal)
CPT/HCPCS: 85025

== ENCOUNTER 2021-07-24 10:39 | Emergency (ER) | payer MEDICARE, MEDICAID, SELFPAY ==
[2021-07-24] VITALS (11 sets, daily range): BP systolic 130–143; BP diastolic 66–89; PULSE 56–74; RESP 17–22; TEMP 36.4–36.9; O2SAT 91–96; BMI 24.4
--- NOTE | 2021-07-24 11:23 | W.ED.GENADLT ---
HPI - General Adult General: Chief complaint: General Medical Stated complaint: LOW HEMAGLOBIN Time Seen by Provider: 07/24/21 10:43 Source: patient Mode of arrival: ambulatory Limitations: no limitations History of Present Illness: 75-year-old male presents emergency room from a local [facility]. He has a history of atrial fibrillation has been on oral anticoagulants in the past that reporting he is having bloody stools. In addition to this he is diabetic and recently was treated for an osteomyelitis with PICC line IV antibiotics and an amputation of his left great toe. The family member with him states that he has been off of the oral anticoagulants because of complications. Gonzalez was EMS report [facility] said he has been having bloody stools as well. Patient is awake and alert answers questions appropriately denies any other recent illness no chest pain or shortness of breath they are reporting he is a little bit confused and lightheaded dizzy at times. Onset (ago): day(s) Location: head Severity: moderate Relieving factors: none Exacerbating factors: none Associated symptoms: Deny chest pain, confusion, cough, diaphoresis, decreased appetite, dyspnea, fevers/chills, headache(s), malaise, nausea, rash, palpitations, seizures, short of breath, syncope, vomiting or weakness Treatments prior to arrival: none Review of Systems Const: Denies: malaise or diaphoresis ENMT: Denies: throat pain, ear or mastoid pain, nasal discharge or nasal congestion Card: Denies: chest pain, palpitations or syncope Resp: Denies: dyspnea GI: Denies: nausea or vomiting : Denies: flank pain, dysuria, urinary frequency or urinary urgency Skin/Breast: Denies: rash Neuro: Denies: headache(s) or confusion PFS ED PFSH: Medical History Anemia Atrial fibrillation Chronic kidney disease (CKD) stage G3a/A1, moderately decreased glomerular filtration rate (GFR) between 45-59 mL/min/1.73 square meter and albuminuria creatinine ratio less than 30 mg/g Diabetes Gangrene of toe of right foot GERD (gastroesophageal reflux disease) History of abdominal hernia Hypercholesteremia Hypertension Sepsis Type 2 diabetes mellitus Venous insufficiency of both lower extremities Surgical History Amputation of fifth toe of left foot History of amputation of toe History of appendectomy History of foot surgery Family History Other Stroke Social History Smoking and tobacco status: never smoked Alcohol intake: never Physical Exam Const: COMMON NORMALS: no acute distress GENERAL APPEARANCE: cooperative and comfortable ORIENTATION/CONSCIOUSNESS: Yes awake HENMT: COMMON NORMALS: normocephalic, atraumatic, hearing grossly normal bilaterally, external ears normal, EAC's normal, TM's normal bilaterally and Normal nasal mucous membranes and turbinates present HEAD & SCALP: normocephalic and atraumatic NOSE: Normal nasal mucous membranes and turbinates present EXTERNAL EAR: Yes external ears normal EXTERNAL AUDITORY CANAL: EAC's normal TYMPANIC MEMBRANE: TM's normal bilaterally Eye: COMMON NORMALS: Equal, round and reactive pupils present, EOMs intact bilaterally, conjunctivae normal and no scleral icterus CONJUNCTIVA: Yes conjunctivae normal PUPIL: Yes Equal, round and reactive pupils present Lymph: LYMPHATIC: no lymphadenopathy noted and no lymphedema noted Resp: COMMON NORMALS: normal respiratory effort, No retractions, No use of accessory muscles and clear to auscultation bilaterally AUSCULTATION: clear to auscultation bilaterally Cardio: RATE: tachycardic RHYTHM: abnormal rhythm irregularly irregular GI: COMMON NORMALS: Soft to palpation and No hepatosplenomegaly present AUSCULTATION: Yes normoactive bowel sounds PALPATION: Yes Soft to palpation, No Tenderness to palpation present (GI), No Guarding due to palpation present (GI) and Yes No hepatosplenomegaly present Extremity: NARRATIVE EXTREMITY EXAM: Partial amputation of the left foot first ray surgically absent. No erythema or drainage on the drip pad bandage. Skin: COMMON NORMALS: no rashes or lesions noted GENERAL SKIN EXAM: no rashes or lesions noted Course Vital Signs: Vital signs: Vital Signs Temperature 97.5 F L 07/24/21 18:28 Pulse Rate 56 L 07/24/21 18:28 Respiratory Rate 18 07/24/21 18:28 Blood Pressure 143/78 07/24/21 18:28 Pulse Oximetry 91 07/24/21 18:28 MDM - General Adult Medical Decision Making Significant anemia. Patient primary care physician had wanted to have the patient transfuse an outpatient surgery however because of volumes they were not able to get this done patient was mildly confused and very dizzy so he was transferred to the ER. He was transfused 2 units he tolerated well was discharged home with the end of this time. Medical Records I reviewed the patient's medical records. Lab Data I reviewed the patient's lab results. : 07/24/21 11:48 07/24/21 11:48 Laboratory Results WBC 8.4 10^3/uL (4.0-10.0) 07/24/21 11:48 RBC 2.58 10^6/uL (4.1-5.3) L 07/24/21 11:48 Hgb 6.5 g/dL (11.7-16.6) L* 07/24/21 11:48 Hct 21.7 % (42.0-52.0) L 07/24/21 11:48 MCV 84.1 fl (80-94) 07/24/21 11:48 MCH 25.2 pg (28.0-34.0) L 07/24/21 11:48 MCHC 30.0 g/dL (30.0-36.0) 07/24/21 11:48 RDW 18.8 % (12.1-15.1) H 07/24/21 11:48 Plt Count 246 10^3/cmm (130-400) 07/24/21 11:48 MPV 9.4 fL (7.4-10.4) 07/24/21 11:48 Neut % (Auto) 83.7 % 07/24/21 11:48 Lymph % (Auto) 9.8 % 07/24/21 11:48 [place] % (Auto) 4.6 % 07/24/21 11:48 Eos % (Auto) 1.1 % 07/24/21 11:48 Baso % (Auto) 0.4 % 07/24/21 11:48 Neut # (Auto) 7.04 10^3/uL (1.8-7.7) 07/24/21 11:48 Lymph # (Auto) 0.8 10^3/uL (0.8-4.8) 07/24/21 11:48 [place] # (Auto) 0.4 10^3/uL (0.2-0.9) 07/24/21 11:48 Eos # (Auto) 0.1 10^3/uL (0.0-0.8) 07/24/21 11:48 Baso # (Auto) 0.0 10^3/uL (0.0-0.1) 07/24/21 11:48 Nucleated RBC % (auto) 0 % 07/24/21 11:48 Nucleated RBCs # 0.0 /100WBC 07/24/21 11:48 Sodium 135 mmol/L (136-145) L 07/24/21 11:48 Potassium 4.6 mmol/L (3.5-5.1) 07/24/21 11:48 Chloride 106 mmol/L (98-107) 07/24/21 11:48 Carbon Dioxide 19 mmol/L (22-29) L 07/24/21 11:48 Anion Gap 14.6 (5-19) 07/24/21 11:48 BUN 67 mg/dL (8-23) H 07/24/21 11:48 Creatinine 2.0 mg/dL (0.7-1.2) H 07/24/21 11:48 GFR Calculation Not Reportable 07/24/21 11:48 Glucose 159 mg/dL (65-115) H 07/24/21 11:48 Calculated Osmolality 303 mOsm/kg (285-295) H 07/24/21 11:48 Calcium 8.4 mg/dL (8.5-10.5) L 07/24/21 11:48 Total Bilirubin 0.2 mg/dL (0.15-1.2) 07/24/21 11:48 AST 50 U/L (0-40) H 07/24/21 11:48 ALT 21 U/L (0-41) 07/24/21 11:48 Alkaline Phosphatase 181 IU/L (40-130) H 07/24/21 11:48 Total Protein 6.6 g/dL (6.6-8.7) 07/24/21 11:48 Albumin 2.1 g/dL (3.5-5.2) L 07/24/21 11:48 Globulin 4.5 g/dL (1.3-4.6) 07/24/21 11:48 Blood Type A Positive 07/24/21 11:48 Rho(D) Type Positive 07/24/21 11:48 Antibody Screen Negative 07/24/21 11:48 Crossmatch See Detail 07/24/21 11:48 Discharge Plan Discharge Patient Disposition: Home Clinical Impression: Anemia, Dementia without behavioral disturbance Condition: Stable Prescriptions: No Action ferrous sulfate 325 mg (65 mg iron) tablet,delayed release (DR/EC) 325 mg PO BID 0RF galantamine 24 mg capsule,ext rel. pellets 24 hr 24 mg PO QAM Qty: 30 2RF Rx Instructions: administer with breakfast; take AFTER completing the 8mg and 16mg doses tramadol 50 mg tablet 50 mg PO DAILY PRN (Reason: pain) Qty: 30 3RF metformin 1,000 mg tablet 500 mg PO BID Qty: 90 1RF vancomycin 750 mg Recon Soln See Rx Instructions .ROUTE .COMPLEX 0RF Rx Instructions: 750 MG IV DAILY @ 0800 (PEAK AND TROUGH AFTER Q 3RD DOSE TROUGH AT 0930 AM AND PEAK AFTER DOSE AT 1100 WILL START ON Saturday07/26/21.) SPOKE TO PTS NURSE MILDRED FROM [facility] - NURSE STATED MED WAS STARTED ON 07/24/21 1 TIME DAILY furosemide 40 mg tablet See Rx Instructions .ROUTE .COMPLEX 0RF Rx Instructions: 40 mg orally on sat,,,sat and 80mg po sat,sat,sat hydralazine 25 mg tablet 50 mg PO TID 0RF atorvastatin 20 mg tablet 20 mg PO BEDTIME 0RF citalopram 20 mg tablet 20 mg PO QAM 0RF Levemir FlexTouch U-100 Insuln 100 unit/mL (3 mL) insulin pen 10 unit SUBCUT BID 0RF insulin aspart U-100 [Novolog U-100 Insulin aspart] 100 unit/mL solution See Rx Instructions .ROUTE .COMPLEX 0RF Rx Instructions: sliding scale prn clonidine HCl 0.1 mg Tablet 0.1 mg PO Q12H 30 Days Qty: 60 0RF sucralfate 1 gram Tablet 1 g PO AC&BEDTIME 30 Days Qty: 60 0RF amlodipine 10 mg Tablet 10 mg PO DAILY 30 Days Qty: 30 0RF pantoprazole 40 mg Tablet,Delayed Release (Dr/Ec) 40 mg PO BID 30 Days Qty: 60 0RF bisacodyl 5 mg Tablet,Delayed Release (Dr/Ec) 10 mg PO DAILY PRN (Reason: Constipation (see protocol)) 30 Days Qty: 30 0RF Discharge Orders: Discharge ED (Routine); Ordered 07/24/21 Ordered By: Jules Snow Referrals: Jose Patiño MD [Primary Care Provider] - Patient Instructions: Opioid Safety Activity Restrictions/Additional Instructions: Repeat CBC tomorrow at the [facility]. Coding Level of Care Code ED Electroslag Welding Machine Operator for Chg Fwd Exam Comprehensive
[2021-07-24 12:02] LABS: Basophils % 0.4 %; Eosinophils # 0.1 10^3/uL (0.0-0.8); Eosinophils % 1.1 %; Hematocrit 21.7 % (42.0-52.0); Lymphocytes # 0.8 10^3/uL (0.8-4.8); Lymphocytes % 9.8 %; Mean Corpuscular Hemoglobin 25.2 pg (28.0-34.0); Mean Corpuscular Volume 84.1 fl (80-94); Mean Platelet Volume 9.4 fL (7.4-10.4); Monocytes # 0.4 10^3/uL (0.2-0.9); Monocytes % 4.6 %; Neutrophils # 7.04 10^3/uL (1.8-7.7); Neutrophils % 83.7 %; Nucleated Red Blood Cells % 0 %; Platelet Count 246 10^3/cmm (130-400); Red Blood Count 2.58 10^6/uL (4.1-5.3); Red Cell Distribution Width 18.8 % (12.1-15.1); White Blood Count 8.4 10^3/uL (4.0-10.0)
[2021-07-24 12:11] LABS: Hemoglobin 6.5 g/dL (11.7-16.6)
--- NOTE | 2021-07-24 12:23 | PC.NURSE ---
Reported to have bloody stools. Not seen in the ER
[2021-07-24 12:24] LABS: Alanine Aminotransferase 21 U/L (0-41); Albumin Level 2.1 g/dL (3.5-5.2); Alkaline Phosphatase 181 IU/L (40-130); Anion Gap 14.6 (5-19); Aspartate Amino Transferase 50 U/L (0-40); Blood Urea Nitrogen 67 mg/dL (8-23); Calcium 8.4 mg/dL (8.5-10.5); Carbon Dioxide 19 mmol/L (22-29); Chloride 106 mmol/L (98-107); Globulin 4.5 g/dL (1.3-4.6); Glucose 159 mg/dL (65-115); Osmolality Calculated 303 mOsm/kg (285-295); Potassium 4.6 mmol/L (3.5-5.1); Sodium 135 mmol/L (136-145); Total Bilirubin 0.2 mg/dL (0.15-1.2); Total Protein 6.6 g/dL (6.6-8.7)
--- NOTE | 2021-07-24 15:00 | PC.NURSE ---
1st bag of PRC's completed
--- NOTE | 2021-07-24 16:43 | PC.NURSE ---
Transfusion completed
== END 2021-07-24 18:32 | disposition home or self-care (01) ==
PROVIDERS: Emergency Provider Family Medicine; PCP Family Medicine
DX: D64.9 Anemia, unspecified (principal); F03.90 Unspecified dementia, unspecified severity, without behavioral disturbance, psychotic disturbance, mood disturbance, and anxiety; I48.91 Unspecified atrial fibrillation; K92.1 Melena; E11.22 Type 2 diabetes mellitus with diabetic chronic kidney disease; I12.9 Hypertensive chronic kidney disease with stage 1 through stage 4 chronic kidney disease, or unspecified chronic kidney disease; N18.31 Chronic kidney disease, stage 3a; D63.1 Anemia in chronic kidney disease; K21.9 Gastro-esophageal reflux disease without esophagitis; I87.2 Venous insufficiency (chronic) (peripheral); Z89.411 Acquired absence of right great toe; Z79.84 Long term (current) use of oral hypoglycemic drugs; Z79.4 Long term (current) use of insulin
CPT/HCPCS: 36430; 80053; 85025; 86850; 86900; 86920; 99284; P9016; P9058

== ENCOUNTER 2021-07-26 11:41 | Outpatient (CLI) | payer MEDICARE, SELFPAY ==
[2021-07-26 12:44] LABS: Vancomycin Peak 28.3 ug/mL (20-40)
== END 2021-07-26 11:42 | disposition home or self-care (01) ==
PROVIDERS: PCP Family Medicine; Visit Provider Family Medicine
DX: Z51.81 Encounter for therapeutic drug level monitoring (principal)
CPT/HCPCS: 80202

== ENCOUNTER 2021-07-31 08:29 | Outpatient (CLI) | payer MEDICARE, MEDICAID, SELFPAY | END 2021-07-31 08:30 | disposition home or self-care (01) | LOC: WOUND 08:30 | PROVIDERS: PCP Family Medicine; Visit Provider Thoracic Surgery (Cardiothoracic Vascular Surgery) | DX: I96 Gangrene, not elsewhere classified (principal); L89.623 Pressure ulcer of left heel, stage 3; I87.2 Venous insufficiency (chronic) (peripheral); L97.822 Non-pressure chronic ulcer of other part of left lower leg with fat layer exposed; L97.812 Non-pressure chronic ulcer of other part of right lower leg with fat layer exposed; T81.89XA Other complications of procedures, not elsewhere classified, initial encounter; Y83.8 Other surgical procedures as the cause of abnormal reaction of the patient, or of later complication, without mention of misadventure at the time of the procedure | CPT/HCPCS: 11044; 11047; 87070; 87077; 87176; 87186; 87205; 97597; 97598; 99214 ==

== ENCOUNTER 2021-08-03 10:46 | Outpatient (CLI) | payer OTHER, SELFPAY ==
[2021-08-03 11:07] LABS: Basophils % 0.4 %; Eosinophils # 0.2 10^3/uL (0.0-0.8); Eosinophils % 1.9 %; Hematocrit 28.4 % (42.0-52.0); Hemoglobin 8.3 g/dL (11.7-16.6); Lymphocytes # 1.1 10^3/uL (0.8-4.8); Lymphocytes % 14.6 %; Mean Corpuscular HGB Conc 29.2 g/dL (30.0-36.0); Mean Corpuscular Hemoglobin 25.1 pg (28.0-34.0); Mean Corpuscular Volume 85.8 fl (80-94); Mean Platelet Volume 9.2 fL (7.4-10.4); Monocytes # 0.4 10^3/uL (0.2-0.9); Monocytes % 5.5 %; Neutrophils # 5.98 10^3/uL (1.8-7.7); Neutrophils % 77.2 %; Nucleated Red Blood Cells % 0 %; Platelet Count 288 10^3/cmm (130-400); Red Blood Count 3.31 10^6/uL (4.1-5.3); Red Cell Distribution Width 19.5 % (12.1-15.1); White Blood Count 7.8 10^3/uL (4.0-10.0)
[2021-08-03 11:27] LABS: Anion Gap 19.6 (5-19); Calcium 8.9 mg/dL (8.5-10.5); Carbon Dioxide 18 mmol/L (22-29); Chloride 101 mmol/L (98-107); Glucose 163 mg/dL (65-115); Osmolality Calculated 307 mOsm/kg (285-295); Potassium 5.6 mmol/L (3.5-5.1); Sodium 133 mmol/L (136-145)
[2021-08-03 11:36] LABS: Blood Urea Nitrogen 90 mg/dL (8-23); Vancomycin Trough 28.3 ug/mL (10-15)
== END 2021-08-03 10:47 | disposition home or self-care (01) ==
LOC: LAB 10:48
PROVIDERS: PCP Family Medicine; Visit Provider Family Medicine
DX: Z51.81 Encounter for therapeutic drug level monitoring (principal)
CPT/HCPCS: 80048; 80202; 85025

== ENCOUNTER 2021-08-04 09:16 | Outpatient (CLI) | payer OTHER, SELFPAY ==
[2021-08-04 10:02] LABS: Vancomycin Trough 24.2 ug/mL (10-15)
== END 2021-08-04 09:17 | disposition home or self-care (01) ==
PROVIDERS: PCP Family Medicine; Visit Provider Family Medicine
DX: Z47.81 Encounter for orthopedic aftercare following surgical amputation (principal)
CPT/HCPCS: 80202

== ENCOUNTER 2021-08-05 10:02 | Outpatient (CLI) | payer OTHER, SELFPAY ==
[2021-08-05 13:31] LABS: Anion Gap 17.7 (5-19); Carbon Dioxide 22 mmol/L (22-29); Chloride 104 mmol/L (98-107); Glucose 71 mg/dL (65-115); Osmolality Calculated 311 mOsm/kg (285-295); Potassium 5.7 mmol/L (3.5-5.1); Sodium 138 mmol/L (136-145); Vancomycin Trough 24.3 ug/mL (10-15)
[2021-08-05 13:45] LABS: Blood Urea Nitrogen 88 mg/dL (8-23)
== END 2021-08-05 10:03 | disposition home or self-care (01) ==
LOC: LAB 10:03
PROVIDERS: PCP Family Medicine; Visit Provider Nurse Practitioner Family
DX: I96 Gangrene, not elsewhere classified (principal)
CPT/HCPCS: 80048; 80202

== ENCOUNTER 2021-08-06 09:45 | Outpatient (CLI) | payer OTHER, SELFPAY ==
[2021-08-06 10:00] LABS: Basophils % 0.3 %; Eosinophils # 0.1 10^3/uL (0.0-0.8); Eosinophils % 1.7 %; Hematocrit 30.6 % (42.0-52.0); Hemoglobin 8.9 g/dL (11.7-16.6); Lymphocytes # 1.1 10^3/uL (0.8-4.8); Lymphocytes % 17.1 %; Mean Corpuscular HGB Conc 29.1 g/dL (30.0-36.0); Mean Platelet Volume 8.9 fL (7.4-10.4); Monocytes # 0.4 10^3/uL (0.2-0.9); Monocytes % 5.6 %; Neutrophils # 4.79 10^3/uL (1.8-7.7); Neutrophils % 74.7 %; Nucleated Red Blood Cells % 0 %; Platelet Count 298 10^3/cmm (130-400); Red Blood Count 3.56 10^6/uL (4.1-5.3); Red Cell Distribution Width 19.7 % (12.1-15.1); White Blood Count 6.4 10^3/uL (4.0-10.0)
[2021-08-06 10:43] LABS: Vancomycin Trough 21.5 ug/mL (10-15)
== END 2021-08-06 09:46 | disposition home or self-care (01) ==
PROVIDERS: PCP Family Medicine; Visit Provider Family Medicine
DX: Z51.81 Encounter for therapeutic drug level monitoring (principal)
CPT/HCPCS: 80202; 85025